=== PATIENT | male | born 1950 | race Caucasian/White ===

== ENCOUNTER 2021-02-20 08:05 | Outpatient (REF) | payer MEDICARE, SELFPAY ==
--- NOTE | ~2021-02-20 | XR_ITS ---
EXAMINATION: XR BILATERAL KNEES CLINICAL INFORMATION: Pain COMPARISON: 12/15/2018 and priors dating back to 2013 TECHNIQUE: Standing AP views of both knees, lateral view of each knee and sunrise views of each knee FINDINGS: There is severe bilateral tricompartmental osteoarthrosis with bdvf-vk-yjbb contact within the medial tibiofemoral compartments bilaterally and along the medial aspect of the lateral femoral compartment on the left, associated with bilateral tibioperoneal, and mild genu varus bilaterally. Stable ossification superior and lateral to the left patella, which may represent an old nonunited avulsion fracture or heterotopic ossification, appearance of which is stable for many years. 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 No knee joint effusion. XR/XR knee LT 2V IMPRESSION: * Severe tricompartmental degenerative changes as described with bocj-pj-srax contact within the medial tibiofemoral compartment bilaterally, and medial aspect of the lateral tibiofemoral compartment on the left. * Stable chondroid lesion within the distal metaphysis on the left suspicious for an enchondroma.
--- NOTE | ~2021-02-20 | XR_ITS ---
EXAMINATION: XR BILATERAL KNEES CLINICAL INFORMATION: Pain COMPARISON: 12/15/2018 and priors dating back to 2013 TECHNIQUE: Standing AP views of both knees, lateral view of each knee and sunrise views of each knee FINDINGS: There is severe bilateral tricompartmental osteoarthrosis with muif-bj-lyhu contact within the medial tibiofemoral compartments bilaterally and along the medial aspect of the lateral femoral compartment on the left, associated with bilateral tibioperoneal, and mild genu varus bilaterally. Stable ossification superior and lateral to the left patella, which may represent an old nonunited avulsion fracture or heterotopic ossification, appearance of which is stable for many years. 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 No knee joint effusion. XR/XR knee RT 2V IMPRESSION: * Severe tricompartmental degenerative changes as described with cajz-cz-mixk contact within the medial tibiofemoral compartment bilaterally, and medial aspect of the lateral tibiofemoral compartment on the left. * Stable chondroid lesion within the distal metaphysis on the left suspicious for an enchondroma.
--- NOTE | ~2021-02-20 | XR_ITS ---
EXAMINATION: XR BILATERAL KNEES CLINICAL INFORMATION: Pain COMPARISON: 12/15/2018 and priors dating back to 2013 TECHNIQUE: Standing AP views of both knees, lateral view of each knee and sunrise views of each knee FINDINGS: There is severe bilateral tricompartmental osteoarthrosis with dxyx-vb-aamj contact within the medial tibiofemoral compartments bilaterally and along the medial aspect of the lateral femoral compartment on the left, associated with bilateral tibioperoneal, and mild genu varus bilaterally. Stable ossification superior and lateral to the left patella, which may represent an old nonunited avulsion fracture or heterotopic ossification, appearance of which is stable for many years. 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 No knee joint effusion. XR/XR knee standing BI IMPRESSION: * Severe tricompartmental degenerative changes as described with oayn-ew-jezv contact within the medial tibiofemoral compartment bilaterally, and medial aspect of the lateral tibiofemoral compartment on the left. * Stable chondroid lesion within the distal metaphysis on the left suspicious for an enchondroma.
== END 2021-02-20 08:06 | disposition home or self-care (01) ==
LOC: HO.HOSX 08:05
PROVIDERS: Visit Provider Orthopaedic Surgery
DX: M17.0 Bilateral primary osteoarthritis of knee (principal); E66.01 Morbid (severe) obesity due to excess calories; Z68.43 Body mass index [BMI] 50.0-59.9, adult
CPT/HCPCS: 20610; 73560; 73565; 99212; J1100

== ENCOUNTER 2022-05-07 06:09 | Outpatient (REF) | payer MEDICARE, SELFPAY ==
--- NOTE | ~2022-05-07 | XR_ITS ---
EXAMINATION: XR BILATERAL STANDING AP KNEES XR KNEE, RIGHT XR KNEE, LEFT CLINICAL INFORMATION: Knee pain COMPARISON: Standing AP knees and bilateral knee radiographs 02/20/2021. TECHNIQUE: Each knee is imaged in standing AP, lateral, and axial patella views. There are a total of 6 views, 3 on each side. FINDINGS: Right: There is marked tricompartment osteoarthritis with prominent joint narrowing, mild secondary genu varus, and prominent femoral and tibial plateau osteophytes. There is no visible erosive change. There is lateralization of the patellar again seen. Small to moderate suprapatellar effusion is suspected. There are atherosclerotic calcifications vasculature. Left: Marked tricompartment osteoarthritis with prominent joint narrowing, mild secondary genu varus, and prominent femoral and tibial plateau osteophytes. No visible erosion. There is mild medial subluxation femur on the tibial plateau again seen. Axial view patella again shows lateralization. There is ossification posterior superior to the upper patellar pole again seen possibly related to old injury. Zopef-pe-cmirwznu patellar effusion is expected. Again, there are as a mineralized intramedullary lesion distal femur around 3 x 4 x 5 cm, suspect enchondroma. There are atherosclerotic calcifications vasculature are again seen. XR/XR knee LT 2V IMPRESSION: -Bilateral marked tricompartment osteoarthritis with small to moderate effusions. -Bilateral patella lateralization. 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
--- NOTE | ~2022-05-07 | XR_ITS ---
EXAMINATION: XR BILATERAL STANDING AP KNEES XR KNEE, RIGHT XR KNEE, LEFT CLINICAL INFORMATION: Knee pain COMPARISON: Standing AP knees and bilateral knee radiographs 02/20/2021. TECHNIQUE: Each knee is imaged in standing AP, lateral, and axial patella views. There are a total of 6 views, 3 on each side. FINDINGS: Right: There is marked tricompartment osteoarthritis with prominent joint narrowing, mild secondary genu varus, and prominent femoral and tibial plateau osteophytes. There is no visible erosive change. There is lateralization of the patellar again seen. Small to moderate suprapatellar effusion is suspected. There are atherosclerotic calcifications vasculature. Left: Marked tricompartment osteoarthritis with prominent joint narrowing, mild secondary genu varus, and prominent femoral and tibial plateau osteophytes. No visible erosion. There is mild medial subluxation femur on the tibial plateau again seen. Axial view patella again shows lateralization. There is ossification posterior superior to the upper patellar pole again seen possibly related to old injury. Smxts-qu-zcpjtnms patellar effusion is expected. Again, there are as a mineralized intramedullary lesion distal femur around 3 x 4 x 5 cm, suspect enchondroma. There are atherosclerotic calcifications vasculature are again seen. XR/XR knee standing BI IMPRESSION: -Bilateral marked tricompartment osteoarthritis with small to moderate effusions. -Bilateral patella lateralization. 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
--- NOTE | ~2022-05-07 | XR_ITS ---
EXAMINATION: XR BILATERAL STANDING AP KNEES XR KNEE, RIGHT XR KNEE, LEFT CLINICAL INFORMATION: Knee pain COMPARISON: Standing AP knees and bilateral knee radiographs 02/20/2021. TECHNIQUE: Each knee is imaged in standing AP, lateral, and axial patella views. There are a total of 6 views, 3 on each side. FINDINGS: Right: There is marked tricompartment osteoarthritis with prominent joint narrowing, mild secondary genu varus, and prominent femoral and tibial plateau osteophytes. There is no visible erosive change. There is lateralization of the patellar again seen. Small to moderate suprapatellar effusion is suspected. There are atherosclerotic calcifications vasculature. Left: Marked tricompartment osteoarthritis with prominent joint narrowing, mild secondary genu varus, and prominent femoral and tibial plateau osteophytes. No visible erosion. There is mild medial subluxation femur on the tibial plateau again seen. Axial view patella again shows lateralization. There is ossification posterior superior to the upper patellar pole again seen possibly related to old injury. Csxrh-ey-vutttnxs patellar effusion is expected. Again, there are as a mineralized intramedullary lesion distal femur around 3 x 4 x 5 cm, suspect enchondroma. There are atherosclerotic calcifications vasculature are again seen. XR/XR knee RT 2V IMPRESSION: -Bilateral marked tricompartment osteoarthritis with small to moderate effusions. -Bilateral patella lateralization. 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
== END 2022-05-07 06:10 | disposition home or self-care (01) ==
LOC: HO.HOSX 06:09
PROVIDERS: Visit Provider Physician Assistant
DX: M17.0 Bilateral primary osteoarthritis of knee (principal); E66.01 Morbid (severe) obesity due to excess calories; M25.511 Pain in right shoulder; Z68.43 Body mass index [BMI] 50.0-59.9, adult
CPT/HCPCS: 20610; 73560; 73565; 99212; J1100

== ENCOUNTER 2022-11-20 15:24 | Emergency (ER) | payer MEDICARE, SELFPAY ==
--- NOTE | ~2022-11-20 | US_ITS ---
EXAMINATION: US VENOUS ULTRASOUND WITH DOPPLER LOWER EXTREMITY, BILATERAL CLINICAL INFORMATION: Bilateral lower extremity edema. COMPARISON: None available. TECHNIQUE: Ultrasound of the deep veins is performed from the hip to the calf with compression sonography and color and pulse Doppler assessment. Spectral analysis with color-flow imaging is performed. FINDINGS: Extremely limited examination due to body habitus. RIGHT: There is normal venous compression and respiratory variation and augmented flow. The visualized common femoral vein, superficial femoral vein, profunda femoral vein, popliteal vein shows no evidence of deep venous thrombosis. There is no significant popliteal fossa cyst. The calf veins could not be visualized. LEFT: There is normal venous compression and respiratory variation and augmented flow. The visualized common femoral vein, superficial femoral vein, profunda femoral vein, popliteal vein shows no evidence of deep venous thrombosis. There is no significant popliteal fossa cyst. The calf veins could not be visualized. If the patient's symptoms persist, followup ultrasound in 5 days 7 days might be of value to exclude proximal propagation from a non-visualized calf vein. US/US venous duplex LE BI IMPRESSION: Technically limited study due to body habitus. No DVT demonstrated in the bilateral lower extremities extending from the common femoral vein to the popliteal vein. Bilateral calf veins could not be visualized. If the patient's symptoms persist, followup ultrasound in 5 days 7 days might be of value to exclude proximal propagation from a non-visualized calf vein.
[2022-11-20 15:43] VITALS: BP 141/51; PULSE 61; RESP 18; TEMP 36.9; O2SAT 94; BMI 59.9
--- NOTE | 2022-11-20 15:43 | ED.LOWEXIN ---
HPI - Extremity Injury (Lower) General Chief Complaint: General Medical Stated Complaint: ultrasound of left leg Time Seen by Provider: 11/20/22 20:17 Source: patient, RN notes reviewed and old records reviewed Mode of arrival: ambulatory History of Present Illness HPI Narrative: 72 yo M w/PMHx obesity, renal stones, sent in from urgent care for DVT rule out, patient c/o LLE swelling, erythema, and warmth x couple days. Reports lower extremities are at baseline edema/swelling. Patient reports compliance with his diuretic, take 40 mg of Lasix daily. Denies injury, fever, chills, drainage, SOB, CP. Onset (ago): day(s) Related Data Home Medications Medication Instructions Recorded Confirmed acetaminophen 650 mg 650 mg PO Q8H 02/20/21 tablet,extended release (Tylenol 8 Hour) ascorbic acid (vitamin C) 500 mg mg PO 02/20/21 capsule aspirin 81 mg chewable tablet 81 mg PO DAILY 02/20/21 flecainide 100 mg tablet 100 mg PO Q8H 02/20/21 furosemide 40 mg tablet 40 mg PO DAILY 02/20/21 gabapentin 300 mg capsule 300 mg PO TID 02/20/21 metoprolol succinate 25 mg 12.5 mg PO DAILY 02/20/21 tablet,extended release 24 hr pantoprazole 40 mg granules 40 mg PO DAILY 02/20/21 delayed-release for susp in packet tramadol 50 mg tablet 50 mg PO DAILY 02/20/21 vitamin B complex (B 1 tab PO DAILY 02/20/21 Complex-Vitamin B12 tablet) ferrous fumarate 324 mg (106 mg 324 mg PO DAILY 05/07/22 iron) tablet Previous Rx's Medication Instructions Recorded cephalexin 500 mg capsule 500 mg PO QID 7 days #28 caps 11/20/22 furosemide 20 mg tablet (Lasix) 40 mg PO DAILY 7 days #14 tabs 11/20/22 Allergies Allergy/AdvReac Type Severity Reaction Status Date / Time amoxicillin Allergy Intermediate Diarrhea Verified 05/07/22 09:41 Review of Systems Review of Systems: Constitutional: No Fever, No Chills, No Fatigue, No Malaise ENT/Mouth: No Ear Pain, No sore throat, No Rhinorrhea, No Swallowing Difficulty Eyes: No Eye Pain, No Swelling, No Redness, No Vision Changes Cardiovascular: No Chest Pain, No SOB, No Dyspnea on Exertion, No Orthopnea, +chronic Edema, No Palpitations Respiratory: No Cough, No Sputum, No Dyspnea Gastrointestinal: No Nausea, No Vomiting, No Diarrhea, No Constipation, No Abdominal pain Musculoskeletal: No joint pain, No Myalgias, No Joint Swelling Skin: +Skin Lesions, No rash Neuro: No Weakness, No Numbness, No Headache Yes all other systems are reviewed and are negative Constitutional: Constitutional: Reports as per [facility] Past Medical History Attestation statement: The following information was validated with the patient. Source: old records reviewed Medical History Bilateral anterior knee pain Bovine stomatitis Kidney stones Social History Social History Advance Directives: No Advance Directives Information Provided: No Current occupational status: disabled Current occupation: rt handed Physical Exam Vital Signs: Vital Signs: Last Vital Signs Temp 98.5 F 11/20/22 15:43 Pulse 71 11/20/22 20:07 Resp 18 11/20/22 20:07 BP 171/61 H 11/20/22 20:07 Pulse Ox 95 11/20/22 20:07 O2 Del Method Room Air 11/20/22 20:07 BMI result Body Mass Index 59.9 Const: General: cooperative, healthy appearing and no acute distress Orientation/consciousness: patient oriented x3 Limitations: no limitations HEENT: Head: Yes normal to inspection and Yes atraumatic Ears: hearing grossly normal bilaterally General nose exam: Normal external nose present Face and sinus: Yes normal facial exam Eyes: General: appearance normal, both eyes and all related structures EOM: EOMs intact bilaterally Neck: Neck: Yes normal visual inspection and Yes no meningeal signs Resp: Effort & Inspection: normal respiratory effort and no respiratory distress Auscultation: clear to auscultation bilaterally Cardio: Rate: regular rate Heart sounds: S1 normal heart sound present and S2 normal heart sound present Peripheral pulses: Peripheral pulses 2+ throughout Skin: Rashes: no rashes Neuro: General: patient oriented x3, tone normal and no meningeal signs Gait exam (Neuro): Normal gait present Extrem: Other: 4+ bilateral LE pitting edema. Left lower extremity with noted circumferential erythema and warmth. Distal pulses intact. No crepitus. No drainage/leakage General: Yes edema Course Course Course Narrative: RME: 72 yo M w/PMHx obesity, renal stones, sent in from urgent care c/o LLE swelling, erythema, and warmth x couple days. Admits to taking his diuretic. denies SOB 4+ b/l le pitting edema, LLE with erythema and warmth Labs, Lactic/blood Cx, US ordered Full HPI, ROS and PE to be performed by primary ED provider. -2004--no leukocytosis. H&H stable. BNP 58. US venous duplex LE BI IMPRESSION: ? Technically limited study due to body habitus. ? No DVT demonstrated in the bilateral lower extremities extending from the common femoral vein to the popliteal vein. ? Bilateral calf veins could not be visualized. If the patient's symptoms persist, followup ultrasound in 5 days 7 days might be of value to exclude proximal propagation from a non-visualized calf vein. > Results discussed with patient including worrisome signs and symptoms and strict return precautions, and when to return to the emergency department. They verbalized understanding and feel safe for discharge at this time. Medical Decision Making Medical Decision Making [facility] Narrative: 72 yo M w/PMHx obesity, renal stones, sent in from urgent care for DVT rule out, patient c/o LLE swelling, erythema, and warmth x couple days. On exam vital signs stable, NAD, nontoxic appearing, physical exam as noted above with bilateral LE pitting edema (chronic per patient) and LLE erythema and warmth. Concern for cellulitis vs DVT. Lower suspicion for CHF w/o SOB/CP. Low concern for necrotizing fasciitis Low suspicion for severe sepsis Plan: Labs, lactic/blood cultures, venous duplex ultrasound Please refer to course for remaining clinical decision making, interpretation of labs/imaging results, and discussions with consultants and/or family members. Differential Diagnosis Differential Diagnoses: The differential diagnosis associated with the presentation includes As above Admission/Observation Consideration of admission/observation: Escalation of care including admission/observation considered Lab Data [facility] Lab Attestation statement: I reviewed the patient's lab results. 11/20/22 16:59 11/20/22 16:59 Labs: Lab Results 11/20/22 11/20/22 11/20/22 Range/Units 16:59 16:59 16:59 WBC 8.0 (4.8-10.8) X10*3/uL RBC 3.83 L (4.60-5.80) X10*6/uL Hgb 12.2 L (14.0-18.0) g/dl Hct 38.0 L (42.0-52.0) % MCV 99.2 H (80.0-98.0) fL MCH 31.9 (27.0-33.0) pg MCHC 32.1 (31.0-36.0) g/dl RDW 12.7 (11.0-16.0) % Plt Count 182 (160-400) X10*3/uL MPV 10.1 (9.4-12.4) fL Immature Gran % (Auto) 0.6 H (0.0-0.4) % Neut % (Auto) 78.5 H (45-73) % Lymph % (Auto) 12.0 L (20-40) % Arthur % (Auto) 8.1 (2-11) % Eos % (Auto) 0.4 (0-4) % Baso % (Auto) 0.4 (0-2) % Lymph # (Auto) 1.0 L (1.2-4.9) X10*3/uL Arthur # (Auto) 0.7 (0.1-1.2) X10*3/uL Eos # (Auto) 0.0 (0.0-0.4) X10*3/uL Baso # (Auto) 0.0 (0.0-0.2) X10*3/uL Abs Immat Gran (auto) 0.05 H (0.00-0.03) X10*3/uL Absolute Neuts (auto) 6.3 (2.0-8.3) x10*3/uL Absolute Nucleated RBC 0.000 (0.0-0.012) X10*3/uL Nucleated RBC % (auto) 0.0 (0.0-0.2) /100WBC PT 11.8 (10.0-13.1) SEC INR 1.0 (0.9-1.1) Sodium 144 (135-145) mmol/L Potassium 4.2 (3.3-5.1) mmol/L Chloride 103 (96-108) mmol/L Carbon Dioxide 31 H (22-29) mmol/L Anion Gap 14 (12-20) BUN 20 H (9-16) mg/dL Creatinine 0.90 (0.5-1.4) mg/dL Estim Creat Clear Calc 119.8 Estimated GFR > 60 Random Glucose 103 (60-115) mg/dL Lactic Acid (0.5-2.0) mmol/L Calcium 9.2 (8.4-10.2) mg/dL Total Bilirubin 0.8 (0.0-1.0) mg/dL Direct Bilirubin 0.2 (0.0-0.5) mg/dL AST 17 (5-37) U/L ALT 11 (0-40) U/L Alkaline Phosphatase 45 (39-117) U/L B-Natriuretic Peptide (<100) pg/mL Total Protein 6.4 L (6.5-8.0) g/dL Albumin 3.7 (3.5-5.0) g/dL 11/20/22 11/20/22 Range/Units 16:59 16:59 WBC (4.8-10.8) X10*3/uL RBC (4.60-5.80) X10*6/uL Hgb (14.0-18.0) g/dl Hct (42.0-52.0) % MCV (80.0-98.0) fL MCH (27.0-33.0) pg MCHC (31.0-36.0) g/dl RDW (11.0-16.0) % Plt Count (160-400) X10*3/uL MPV (9.4-12.4) fL Immature Gran % (Auto) (0.0-0.4) % Neut % (Auto) (45-73) % Lymph % (Auto) (20-40) % Arthur % (Auto) (2-11) % Eos % (Auto) (0-4) % Baso % (Auto) (0-2) % Lymph # (Auto) (1.2-4.9) X10*3/uL Arthur # (Auto) (0.1-1.2) X10*3/uL Eos # (Auto) (0.0-0.4) X10*3/uL Baso # (Auto) (0.0-0.2) X10*3/uL Abs Immat Gran (auto) (0.00-0.03) X10*3/uL Absolute Neuts (auto) (2.0-8.3) x10*3/uL Absolute Nucleated RBC (0.0-0.012) X10*3/uL Nucleated RBC % (auto) (0.0-0.2) /100WBC PT (10.0-13.1) SEC INR (0.9-1.1) Sodium (135-145) mmol/L Potassium (3.3-5.1) mmol/L Chloride (96-108) mmol/L Carbon Dioxide (22-29) mmol/L Anion Gap (12-20) BUN (9-16) mg/dL Creatinine (0.5-1.4) mg/dL Estim Creat Clear Calc Estimated GFR Random Glucose (60-115) mg/dL Lactic Acid 1.9 (0.5-2.0) mmol/L Calcium (8.4-10.2) mg/dL Total Bilirubin (0.0-1.0) mg/dL Direct Bilirubin (0.0-0.5) mg/dL AST (5-37) U/L ALT (0-40) U/L Alkaline Phosphatase (39-117) U/L B-Natriuretic Peptide 58 (<100) pg/mL Total Protein (6.5-8.0) g/dL Albumin (3.5-5.0) g/dL Radiology Impression Discussion of test interpretation with radiology: I have reviewed the radiologist's reading. External Record Review External record reviewed: Inpatient record, Office record, Outpatient record, Prior outpatient labs, Prior outpatient radiology, Primary care record and Outside ED record Tests considered The following testing was considered but not selected: As above Discharge Plan Discharge Clinical Impression: Cellulitis Patient Disposition: Home, Self-Care Instructions: Cellulitis (DC) Additional Instructions: You have cellulitis of your leg. Your ultrasound does not show blood clot, however if you have continued symptoms we recommend repeat ultrasound in 5-7 days PLEASE DOUBLE YOUR LASIX FOR THE NEXT 5-7 DAYS. TAKE 1ST DOSE IN THE MORNING WITH MORNING MEDS, TAKE ADDITIONAL DOSE AT 15:00 If redness is spreading, you have fever, leakage or drainage from legs, shortness of breath return to the ED Call your doctor for close follow-up and repeat labs next week Prescriptions: New cephalexin 500 mg capsule 500 mg PO QID 7 Days Qty: 28 0RF furosemide [Lasix] 20 mg tablet 40 mg PO DAILY 7 Days Qty: 14 0RF No Action pantoprazole [address] for susp in packet 40 mg PO DAILY furosemide 40 mg tablet 40 mg PO DAILY flecainide 100 mg tablet 100 mg PO Q8H gabapentin 300 mg capsule 300 mg PO TID tramadol 50 mg tablet 50 mg PO DAILY metoprolol succinate 25 mg tablet extended release 24 hr 12.5 mg PO DAILY acetaminophen [Tylenol 8 Hour] 650 mg tablet extended release 650 mg PO Q8H ascorbic acid (vitamin C) 500 mg capsule PO vitamin B complex [B Complex-Vitamin B12] Tablet 1 tab PO DAILY aspirin 81 mg tablet,chewable 81 mg PO DAILY ferrous fumarate 324 mg (106 mg iron) tablet 324 mg PO DAILY Referrals: Destiny Ortega [employer] MANAGER [Primary Care Provider] - 5 days Interventions: ED Discharge Assessment Last Done: 11/20/22 20:20 Discharge Date/Time: 11/20/22 20:21
[2022-11-20 17:09] LABS: MANUAL DIFF FLAG NO
[2022-11-20 17:19] LABS: Prothrombin Time 11.8 SEC (10.0-13.1)
[2022-11-20 17:25] LABS: Lactic Acid 1.9 mmol/L (0.5-2.0)
[2022-11-20 17:30] LABS: Alanine Aminotransferase 11 U/L (0-40); Albumin Level 3.7 g/dL (3.5-5.0); Alkaline Phosphatase 45 U/L (39-117); Anion Gap 14 (12-20); Aspartate Amino Transferase 17 U/L (5-37); Bilirubin Direct 0.2 mg/dL (0.0-0.5); Bilirubin Total 0.8 mg/dL (0.0-1.0); Blood Urea Nitrogen 20 mg/dL (9-16); Calcium 9.2 mg/dL (8.4-10.2); Carbon Dioxide 31 mmol/L (22-29); Chloride 103 mmol/L (96-108); Creatinine Clr Calc Pharmacy 119.8; Estimated Glomerular Filt Rate > 60; Glucose Random 103 mg/dL (60-115); Potassium 4.2 mmol/L (3.3-5.1); Sodium 144 mmol/L (135-145); Total Protein 6.4 g/dL (6.5-8.0)
[2022-11-20 17:32] LABS: Basophils Percent Auto 0.4 % (0-2); Eosinophils Percent Auto 0.4 % (0-4); Hemoglobin 12.2 g/dl (14.0-18.0); Imm Gran Abs Auto 0.05 X10*3/uL (0.00-0.03); Imm Gran Pct Auto 0.6 % (0.0-0.4); Mean Corpuscular HGB Conc 32.1 g/dl (31.0-36.0); Mean Corpuscular Hemoglobin 31.9 pg (27.0-33.0); Mean Corpuscular Volume 99.2 fL (80.0-98.0); Mean Platelet Volume 10.1 fL (9.4-12.4); Monocytes Absolute Auto 0.7 X10*3/uL (0.1-1.2); Monocytes Percent Auto 8.1 % (2-11); Neutrophils Absolute Auto 6.3 x10*3/uL (2.0-8.3); Neutrophils Percent Auto 78.5 % (45-73); Platelet Count 182 X10*3/uL (160-400); Red Blood Count 3.83 X10*6/uL (4.60-5.80); Red Cell Distribution Width 12.7 % (11.0-16.0)
[2022-11-20 17:35] LABS: B Type Natriuretic Peptide 58 pg/mL (<100)
[2022-11-20 20:07] VITALS: BP 171/61; PULSE 71; RESP 18; O2SAT 95
== END 2022-11-20 20:21 | disposition home or self-care (01) ==
PROVIDERS: Physician Assistant; Emergency Provider Internal Medicine; PCP Nurse Practitioner Family
DX: L03.116 Cellulitis of left lower limb (principal); M79.89 Other specified soft tissue disorders
CPT/HCPCS: 36415; 80048; 80076; 83605; 83880; 85025; 85610; 87040; 93970; 99284

== ENCOUNTER 2023-02-15 09:42 | Outpatient (REF) | payer MEDICARE, SELFPAY ==
--- NOTE | ~2023-02-15 | XR_ITS ---
EXAMINATION: XR KNEE, STANDING AP, BILATERAL XR KNEE, RIGHT XR KNEE, LEFT CLINICAL INFORMATION: Knee pain. COMPARISON: Standing AP knees and bilateral knee radiographs 05/07/2022. TECHNIQUE: AP standing view of bilateral knees as well as AP and sunrise views of bilateral knees. FINDINGS: RIGHT KNEE: The bones are diffusely demineralized. Marked tricompartmental degenerative changes with joint space narrowing, marginal osteophytes and varus angulation. Redemonstration of lateralization of the patella. Moderate joint effusion redemonstrated. Extensive atherosclerotic calcifications. LEFT KNEE: The bones are diffusely demineralized. Marked tricompartmental degenerative changes with joint space narrowing, marginal osteophytes and varus angulation. Redemonstration of lateralization of the patella. Moderate joint effusion redemonstrated. Extensive atherosclerotic calcifications. Redemonstration of ossification posterior superior to the upper patellar pole, possibly representing an old nonunited avulsion fracture or heterotopic ossification. Moderate joint effusion. Redemonstration of a mineralized intramedullary lesion within the distal left femoral metaphysis demonstrating internal matrix possibly representing old bone infarct or cartilaginous lesion. XR/XR knee LT 2V IMPRESSION: Severe bilateral arthritis redemonstrated. Additional imaging with CT scan or MRI should be considered for better visualization as these modalities are much more sensitive for detection of fracture or other underlying pathology.
--- NOTE | ~2023-02-15 | XR_ITS ---
EXAMINATION: XR KNEE, STANDING AP, BILATERAL XR KNEE, RIGHT XR KNEE, LEFT CLINICAL INFORMATION: Knee pain. COMPARISON: Standing AP knees and bilateral knee radiographs 05/07/2022. TECHNIQUE: AP standing view of bilateral knees as well as AP and sunrise views of bilateral knees. FINDINGS: RIGHT KNEE: The bones are diffusely demineralized. Marked tricompartmental degenerative changes with joint space narrowing, marginal osteophytes and varus angulation. Redemonstration of lateralization of the patella. Moderate joint effusion redemonstrated. Extensive atherosclerotic calcifications. LEFT KNEE: The bones are diffusely demineralized. Marked tricompartmental degenerative changes with joint space narrowing, marginal osteophytes and varus angulation. Redemonstration of lateralization of the patella. Moderate joint effusion redemonstrated. Extensive atherosclerotic calcifications. Redemonstration of ossification posterior superior to the upper patellar pole, possibly representing an old nonunited avulsion fracture or heterotopic ossification. Moderate joint effusion. Redemonstration of a mineralized intramedullary lesion within the distal left femoral metaphysis demonstrating internal matrix possibly representing old bone infarct or cartilaginous lesion. XR/XR knee standing BI IMPRESSION: Severe bilateral arthritis redemonstrated. Additional imaging with CT scan or MRI should be considered for better visualization as these modalities are much more sensitive for detection of fracture or other underlying pathology.
--- NOTE | ~2023-02-15 | XR_ITS ---
EXAMINATION: XR KNEE, STANDING AP, BILATERAL XR KNEE, RIGHT XR KNEE, LEFT CLINICAL INFORMATION: Knee pain. COMPARISON: Standing AP knees and bilateral knee radiographs 05/07/2022. TECHNIQUE: AP standing view of bilateral knees as well as AP and sunrise views of bilateral knees. FINDINGS: RIGHT KNEE: The bones are diffusely demineralized. Marked tricompartmental degenerative changes with joint space narrowing, marginal osteophytes and varus angulation. Redemonstration of lateralization of the patella. Moderate joint effusion redemonstrated. Extensive atherosclerotic calcifications. LEFT KNEE: The bones are diffusely demineralized. Marked tricompartmental degenerative changes with joint space narrowing, marginal osteophytes and varus angulation. Redemonstration of lateralization of the patella. Moderate joint effusion redemonstrated. Extensive atherosclerotic calcifications. Redemonstration of ossification posterior superior to the upper patellar pole, possibly representing an old nonunited avulsion fracture or heterotopic ossification. Moderate joint effusion. Redemonstration of a mineralized intramedullary lesion within the distal left femoral metaphysis demonstrating internal matrix possibly representing old bone infarct or cartilaginous lesion. XR/XR knee RT 2V IMPRESSION: Severe bilateral arthritis redemonstrated. Additional imaging with CT scan or MRI should be considered for better visualization as these modalities are much more sensitive for detection of fracture or other underlying pathology.
== END 2023-02-15 09:43 | disposition home or self-care (01) ==
LOC: HO.HOSX 09:42
PROVIDERS: Visit Provider Orthopaedic Surgery
DX: M17.0 Bilateral primary osteoarthritis of knee (principal); M75.51 Bursitis of right shoulder; E66.01 Morbid (severe) obesity due to excess calories; Z68.43 Body mass index [BMI] 50.0-59.9, adult
CPT/HCPCS: 20610; 73560; 73565; 99212; J1100

== ENCOUNTER 2023-02-15 10:41 | Outpatient (AMB) | payer MEDICARE, SELFPAY ==
[2023-02-15 11:05] VITALS: BMI 59.9
--- NOTE | 2023-02-15 11:05 | MHC.OFFVIS ---
Intake Vital Signs 02/15/23 11:05 Height 5 ft 8 in Weight 394 lb BMI 59.9 Intake Visit Reasons: OV-Bilateral Knee Pain Intake Note: Lee is a 72 year old male who presents today for a follow up appointment of his bilateral knee pain. Last Injections done in bilateral knees as well as right shoulder on 05/07/22. Uses crutches for support when ambulating. The injections were mildly helpful for the right knee but were not helfup for the left knee. Allergies amoxicillin Allergy (Intermediate, Verified 05/07/22 09:41) Diarrhea HPI OV-Bilateral Knee Pain HPI Details Lee Herrera is a 72-year-old male who returns with bilateral knee pain. His last cortisone injection in the bilateral knees was on 05/07/2022, he also had right shoulder cortisone injection the same day. He confirms use of crutches when ambulating. He states the left knee injection did not help him, but the right knee injection gave him mild relief. He reports continued pain in the right shoulder and states the shoulder feels like it ?pulls?. He states the injection in the shoulder gave him relief. He denies a medical history of diabetes mellitus. 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 Patient ambulates with a crutches [facility] Medical History Bilateral anterior knee pain Bovine stomatitis Kidney stones Social History Current occupational status: disabled Current occupation: rt handed Review of Systems Const All systems reviewed & are unremarkable except as noted in HPI and below Physical Exam Vital Signs: BMI result Body Mass Index 59.9 Const General: cooperative, healthy appearing and no acute distress Orientation/consciousness: patient oriented x3 Resp Effort & Inspection: normal respiratory effort and able to speak in complete sentences Cardio Rate: regular rate Peripheral pulses: Peripheral pulses 2+ throughout GI Palpation (GI): Soft to palpation Skin General skin exam: no rashes or lesions noted Lesions: no lesions Rashes: no rashes Neuro General: patient oriented x3 Extrem Other: Bilateral knees: 80 degrees arc of motion. Antalgic gait. Right shoulder: Negative empty can. Positive Rojas's. Office Procedures Joint Injection/Drain Joint Injection/Drain Details: Injected 1 mL of Decadron and 3 mL 1% lidocaine and 3 mL of 0.25% Marcaine. Site was prepped using aseptic technique. Patient tolerated the procedure well. Primary Site: right shoulder Approach Used: posterolateral Coding - Large joint Procedure code (CPT) selection complete Results Reviewed Results Reviewed: 02/15/23 11:35 Lidocaine HCl 2 % MPF [Xylocaine 2 % MPF] 5 ml .ROUTE .STK-MED ONE dexAMETHasone sod phosphate [Decadron] 4 mg .ROUTE .STK-MED ONE Assessment & Plan Assessment & Plan (1) Osteoarthritis of knees, bilateral: Code(s): M17.0 - Bilateral primary osteoarthritis of knee Plan: The patient was offered a cortisone injection in the bilateral knees and right shoulder. The patient was explained the risk, benefits, and alternatives to receiving this injection. After receiving consent for the injection, the patient had the procedure done while in office today. The patient tolerated the procedure well with no complications. He will call the office no sooner then 3 months when he feels he is ready for repeat injections. (2) Morbid obesity with BMI of 50.0-59.9, adult: Code(s): E66.01 - Morbid (severe) obesity due to excess calories; Z68.43 - Body mass index [BMI] 50.0-59.9, adult (3) Bursitis of right shoulder: Code(s): M75.51 - Bursitis of right shoulder Plan Scribed for Dr. Rashi Gonzalez by Lora He, director global medical affairs, on 02/05/2023 at 10:50 am, EST. Orders: Orders XR knee LT 2V 02/15/23 M25.569 - Pain in unspecified knee XR knee RT 2V 02/15/23 M25.569 - Pain in unspecified knee XR knee standing BI 02/15/23 M25.569 - Pain in unspecified knee Coding Level of Care Code Est Pt Level 4 (24015) Diagnoses Osteoarthritis of knees, bilateral M17.0 Morbid obesity with BMI of 50.0-59.9, adult E66.01; Z68.43 Bursitis of right shoulder M75.51 CPT Codes Coding - Large joint: - Large joint ([id number])
== END 2023-02-15 12:41 | disposition home or self-care (01) ==
PROVIDERS: PCP Nurse Practitioner Family; Visit Provider Orthopaedic Surgery
DX: M17.0 Bilateral primary osteoarthritis of knee (principal); M75.51 Bursitis of right shoulder; M25.511 Pain in right shoulder
CPT/HCPCS: 20610; 99214

== ENCOUNTER 2023-08-12 10:22 | Outpatient (REF) | payer MEDICARE, SELFPAY ==
[2023-08-12 13:12] LABS: MANUAL DIFF FLAG NO
[2023-08-12 13:33] LABS: Basophils Percent Auto 0.6 % (0-2); Eosinophils Absolute Auto 0.1 X10*3/uL (0.0-0.4); Eosinophils Percent Auto 1.6 % (0-4); Hematocrit 33.7 % (42.0-52.0); Hemoglobin 9.3 g/dl (14.0-18.0); Imm Gran Abs Auto 0.18 X10*3/uL (0.00-0.03); Imm Gran Pct Auto 2.6 % (0.0-0.4); Lymphocytes Absolute Auto 1.4 X10*3/uL (1.2-4.9); Lymphocytes Percent Auto 21.2 % (20-40); Mean Corpuscular HGB Conc 27.6 g/dl (31.0-36.0); Mean Corpuscular Hemoglobin 27.8 pg (27.0-33.0); Mean Corpuscular Volume 100.6 fL (80.0-98.0); Mean Platelet Volume 10.8 fL (9.4-12.4); Monocytes Absolute Auto 0.6 X10*3/uL (0.1-1.2); Monocytes Percent Auto 8.5 % (2-11); NRBC Pct Auto 0.6 /100WBC (0.0-0.2); Neutrophils Absolute Auto 4.5 x10*3/uL (2.0-8.3); Neutrophils Percent Auto 65.5 % (45-73); Platelet Count 204 X10*3/uL (160-400); Red Blood Count 3.35 X10*6/uL (4.60-5.80); White Blood Count 6.8 X10*3/uL (4.8-10.8)
== END 2023-08-12 10:23 | disposition home or self-care (01) ==
LOC: HO.HVNA 10:22
PROVIDERS: PCP Internal Medicine; Visit Provider Nurse Practitioner Family
DX: D64.9 Anemia, unspecified (principal); I48.91 Unspecified atrial fibrillation
CPT/HCPCS: 36415; 85025

== ENCOUNTER 2023-08-19 09:50 | Outpatient (REF) | payer MEDICARE, SELFPAY ==
[2023-08-19 14:01] LABS: Basophils Percent Auto 0.3 % (0-2); Eosinophils Absolute Auto 0.1 X10*3/uL (0.0-0.4); Eosinophils Percent Auto 1.1 % (0-4); Hematocrit 29.1 % (42.0-52.0); Hemoglobin 8.5 g/dl (14.0-18.0); Imm Gran Abs Auto 0.05 X10*3/uL (0.00-0.03); Imm Gran Pct Auto 0.8 % (0.0-0.4); Lymphocytes Absolute Auto 1.1 X10*3/uL (1.2-4.9); MANUAL DIFF FLAG NO; Mean Corpuscular HGB Conc 29.2 g/dl (31.0-36.0); Mean Corpuscular Hemoglobin 29.6 pg (27.0-33.0); Mean Corpuscular Volume 101.4 fL (80.0-98.0); Mean Platelet Volume 10.5 fL (9.4-12.4); Monocytes Absolute Auto 0.5 X10*3/uL (0.1-1.2); Monocytes Percent Auto 7.7 % (2-11); Neutrophils Absolute Auto 4.4 x10*3/uL (2.0-8.3); Neutrophils Percent Auto 72.1 % (45-73); Platelet Count 298 X10*3/uL (160-400); Red Blood Count 2.87 X10*6/uL (4.60-5.80); Red Cell Distribution Width 21.2 % (11.0-16.0); White Blood Count 6.1 X10*3/uL (4.8-10.8)
[2023-08-19 14:47] LABS: Prostate Specific Antigen 3.08 ng/mL (<0.05-4.0)
== END 2023-08-19 09:51 | disposition home or self-care (01) ==
LOC: HO.HVNA 09:50
PROVIDERS: Visit Provider Urology
DX: R97.20 Elevated prostate specific antigen [PSA] (principal); Z12.5 Encounter for screening for malignant neoplasm of prostate
CPT/HCPCS: 36415; 84153; 85025

== ENCOUNTER 2023-08-29 09:40 | Outpatient (REF) | payer MEDICARE, SELFPAY ==
[2023-08-29 13:08] LABS: MANUAL DIFF FLAG NO
[2023-08-29 13:24] LABS: Basophils Percent Auto 0.4 % (0-2); Eosinophils Percent Auto 0.7 % (0-4); Hematocrit 24.4 % (42.0-52.0); Hemoglobin 7.2 g/dl (14.0-18.0); Imm Gran Abs Auto 0.02 X10*3/uL (0.00-0.03); Imm Gran Pct Auto 0.4 % (0.0-0.4); Lymphocytes Absolute Auto 1.1 X10*3/uL (1.2-4.9); Lymphocytes Percent Auto 19.5 % (20-40); Mean Corpuscular HGB Conc 29.5 g/dl (31.0-36.0); Mean Corpuscular Hemoglobin 30.5 pg (27.0-33.0); Mean Corpuscular Volume 103.4 fL (80.0-98.0); Mean Platelet Volume 10.4 fL (9.4-12.4); Monocytes Absolute Auto 0.5 X10*3/uL (0.1-1.2); Monocytes Percent Auto 8.7 % (2-11); Neutrophils Absolute Auto 3.9 x10*3/uL (2.0-8.3); Neutrophils Percent Auto 70.3 % (45-73); Platelet Count 204 X10*3/uL (160-400); Red Blood Count 2.36 X10*6/uL (4.60-5.80); Red Cell Distribution Width 20.1 % (11.0-16.0); White Blood Count 5.5 X10*3/uL (4.8-10.8)
== END 2023-08-29 09:41 | disposition home or self-care (01) ==
LOC: HO.HVNA 09:40
PROVIDERS: PCP Internal Medicine; Visit Provider Nurse Practitioner Adult Health
DX: Z87.19 Personal history of other diseases of the digestive system (principal)
CPT/HCPCS: 36415; 85025

== ENCOUNTER 2024-01-27 09:57 | Outpatient (REF) | payer MEDICARE, SELFPAY ==
--- NOTE | ~2024-01-27 | US_ITS ---
ULTRASOUND SOFT TISSUES RIGHT THIGH CLINICAL: Palpable mass in the upper medial, inner right thigh. COMPARISON: None. TECHNIQUE: Using linear and curved array transducers with grayscale and color modalities ultrasound examination is performed of the area of clinical concern in the inner right thigh. FINDINGS: There is a large subcutaneous structure in the upper inner right thigh, which is large and not measured by the technologist. They show scant vascularity. The mass is isoechoic to adjacent subcutaneous fat. No fluid collection is seen. There is no lymphadenopathy. No foreign body is seen. No hernia defect is noted. US/US extremity nonvascular wilder IMPRESSION: A large soft tissue density collection, isoechoic to adjacent fat, is seen in the upper inner right thigh, corresponding with the palpable finding. The possibility of a lipoma is raised; the exact etiology is indeterminate. If of continued clinical concern, this can be further evaluated with MRI. Electronically signed by: Nicolas Dumont MD 02/24/2024 07:23 PM EDT
== END 2024-01-27 09:58 | disposition home or self-care (01) ==
LOC: HO.HMGCX 09:57
PROVIDERS: PCP Physician Assistant Surgical; Visit Provider Physician Assistant Surgical
DX: R22.41 Localized swelling, mass and lump, right lower limb (principal)
CPT/HCPCS: 76882

== ENCOUNTER 2024-05-21 10:14 | Outpatient (AMB) | payer MEDICARE, SELFPAY ==
--- NOTE | 2024-05-21 10:24 | MHC.OFFWIV ---
Intake Vital Signs 05/21/24 10:26 BMI Reason not done Patient refused/unable BP 124/80 Blood Pressure Location Lt brachial Position Sitting Pulse 54 Pulse Source Pulse Oximeter Pulse Oximetry (%) 93 Oxygen Delivery Method Room Air Intake Visit Reasons: EP fell on tailbone, has pain Intake Note: Patient here because he had a fall about 2 weeks ago and fell on his tailbone. Patient Tobacco Use Status: Former Tobacco user Allergies amoxicillin Allergy (Intermediate, Verified 05/21/24 10:27) Diarrhea Do you need a note to return to daycare/school/sports/work: No HPI EP fell on tailbone, has pain HPI Details This note is constructed using voice recognition software. While every effort has been made to ensure accuracy, corporate pilot errors may have been included. The patient is a 74 year old male who presents to the clinic today with coccyx pain after a fall 2 weeks ago. He reports that he uses a wheelchair typically for mobility, coupled with crutches for getting around when he has to stand. He has a cast on his right hand, and forgot to lock his wheelchair when he went to sit, the chair rolled away, and he landed hard on his buttocks. He reports it took him about 10-15 minutes to get up from the fall, and did not have pain right away. After the next 2 or 3 days he developed pain, in the right side, which traveled over to the left side of the coccyx. The pain has not improved despite use of routine acetaminophen and tramadol for other pains. He denies numbness and tingling in his legs, any worsened ability to be mobile. The pain is worse with going from sitting to standing, and is absent when he is standing or when he is sitting. [facility] Medical History Bilateral anterior knee pain Bovine stomatitis Kidney stones Social History Patient Tobacco Use Status: Former Tobacco user Current occupational status: disabled Current occupation: rt handed Review of Systems Const All systems reviewed & are unremarkable except as noted in HPI and below Physical Exam Vital Signs: Last Vital Signs Pulse 54 05/21/24 10:26 BP 124/80 05/21/24 10:26 Pulse Ox 93 05/21/24 10:26 Oxygen Delivery Method Room Air 05/21/24 10:26 Const General: cooperative, healthy appearing, comfortable and no acute distress Orientation/consciousness: patient oriented x3 Limitations: wheelchair Resp Effort & Inspection: normal respiratory effort and able to speak in complete sentences Back/Spine/Pelvis Other: Left-sided Schmid's tenderness to palpation with palpable knot. Flexion and extension of spine appear normal. Unable to rotate due to mobility restrictions. Leg strength 5/5, equal bilaterally. Distal neurovascular exam intact. Skin General skin exam: no rashes or lesions noted Neuro General: patient oriented x3 Extrem General: Yes normal to inspection Assessment & Plan Assessment & Plan (1) Coccydynia: Code(s): M53.3 - Sacrococcygeal disorders, not elsewhere classified Plan: Given nature of his fall, we elected to obtain x-rays today. Advised rest, ice or heat. Patient is unable to tolerate NSAIDs, prednisone prescription sent for anti-inflammatory effects. Advised follow up as needed with PCP with worsening or failure to resolve. Anticipate contact the patient with x-ray results after radiology interpretation. Plan See above for full details and plan. Orders: Orders XR sacrum coccyx min 2V Today M53.3 - Sacrococcygeal disorders, not elsewhere classified Medications: New prednisone 40 mg (2 x 20 mg) PO DAILY 3 days 6 tabs 0RF Coding Level of Care Code Est Pt Level 3 (92124) Diagnoses Coccydynia M53.3
[2024-05-21 10:26] VITALS: BP 124/80; PULSE 54; O2SAT 93
== END 2024-05-21 11:34 | disposition home or self-care (01) ==
PROVIDERS: PCP Physician Assistant Surgical; Visit Provider Registered Nurse
DX: M53.3 Sacrococcygeal disorders, not elsewhere classified (principal)

== ENCOUNTER 2024-05-21 10:14 | Outpatient (REF) | payer MEDICARE, SELFPAY ==
--- NOTE | ~2024-05-21 | XR_ITS ---
EXAMINATION: XR SACRUM AND COCCYX CLINICAL INFORMATION: M53.3 - Sacrococcygeal disorders, not elsewhere classified COMPARISON: None available. TECHNIQUE: 2 views of the sacrum and 2 views of the coccyx were obtained. FINDINGS: The coccyx is slightly subluxed posteriorly although this may be within the range of normal variation. Correlate for point tenderness. No prior comparison. Otherwise, no acute fracture or malalignment. XR/XR sacrum coccyx min 2V IMPRESSION: Slight posterior subluxation of the coccyx, possibly within the range of normal variation. Correlate for point tenderness. Otherwise, no acute fracture. Electronically signed by: Sumit Vanegas MD 05/21/2024 05:18 PM [facility]
== END 2024-05-21 10:15 | disposition home or self-care (01) ==
LOC: HO.HMGCX 10:14
PROVIDERS: PCP Physician Assistant Surgical; Visit Provider Registered Nurse
DX: M53.3 Sacrococcygeal disorders, not elsewhere classified (principal)
CPT/HCPCS: 72220; 99212

== ENCOUNTER 2024-05-27 08:53 | Outpatient (AMB) | payer MEDICARE, SELFPAY ==
[2024-05-27 08:53] VITALS: BP 150/68; PULSE 64; O2SAT 96
--- NOTE | 2024-05-27 08:53 | MHC.PC.OV ---
Vital Signs 05/27/24 08:53 05/27/24 10:06 BMI Reason not done Patient refused/unable BP 150/68 H 138/62 Blood Pressure Location Lt brachial Lt brachial Position Sitting Sitting Pulse 64 Pulse Source Pulse Oximeter Pulse Oximetry (%) 96 Oxygen Delivery Method Room Air Intake Visit Reasons: establish care Allergies amoxicillin Allergy (Intermediate, Verified 05/27/24 09:14) Diarrhea Medication List - Last Reconciled 05/27/24 by Karrie Mckinney PA-C acetaminophen ER (Tylenol 8 Hour) 650 mg PO Q8H amlodipine 10 mg PO DAILY ascorbic acid (vitamin C) mg PO aspirin 81 mg PO DAILY ferrous fumarate 324 mg PO DAILY flecainide 100 mg PO Q8H furosemide (Lasix) 40 mg (2 x 20 mg) PO DAILY 7 days furosemide 40 mg PO DAILY gabapentin 300 mg PO TID losartan 50 mg PO DAILY metoprolol succinate ER 25 mg PO DAILY pantoprazole 40 mg PO DAILY tramadol 50 mg PO DAILY vitamin B complex (B Complex-Vitamin B12 tablet) 1 tab PO DAILY Tobacco use date assessed: 05/27/24 Fall risk assessment: 1 Fall in past year (urgent care visit [id number] ) Last assessed Fall Risk: 05/27/24 Dental Screening Dental Screen Date: 05/27/24 Did you have a dental visit in the last 12 months?: No Did you have a dental problem in the last 6 months where you did not have access to dental care?: No Was dental information given to patient?: Patient has dentist HPI establish care HPI Details 74-year-old male with past medical history of GERD, hypertension coming to the office for the 1st time. Patient was previously seen by primary care through [facility] in [place]. He follows with several different specialists including [facility] Cardiology, [facility] for hematology and pulmonology, [place] [facility] and [facility]. He has a history of several colonoscopies in the past and was told he does not need any additional colonoscopies. He ambulates with several different assistive devices including a wheelchair, cane, crutches and walker. He does have chronic pain and uses tramadol b.i.d. for this pain and follows with orthopedics for regular knee injections. He did also recently have multiple hand and wrist operations on the right side for several different concerns. He sees a paper folding machine operator in July. He denies any acute concerns today. [facility] Medical History (Updated 05/27/24 @ 10:18 by Karrie Mckinney PA-C) Fractured talus Bilateral anterior knee pain Bovine stomatitis Kidney stones Surgical History (Updated 05/27/24 @ 10:18 by Karrie Mckinney PA-C) S/P foot surgery, right H/O ankle fusion S/P tonsillectomy H/O knee surgery Hx of appendectomy H/O thumb surgery H/O wrist surgery S/P TAVR (transcatheter aortic valve replacement) Family History (Updated 05/27/24 @ 09:21 by Karrie Mckinney PA-C) Father Cancer Social History Patient Tobacco Use Status: Former Tobacco user Tobacco use type: Cigarette service: No Current occupational status: disabled Current occupation: rt handed Cognitive needs: Yes Hearing needs: No Vision needs: No Questionnaire PHQ-9 Over the last 2 weeks, how often have you been bothered by any of the following problems? 1. Little interest or pleasure in doing things: not at all 2. Feeling down, depressed, or hopeless: not at all 3. Trouble falling or staying asleep, or sleeping too much: not at all 4. Feeling tired or having little energy: not at all 5. Poor appetite or overeating: not at all 6. Feeling bad about yourself - or that you are a failure or have let yourself or your family down: not at all 7. Trouble concentrating on things, such as reading the newspaper or watching television: not at all 8. Moving or speaking so slowly that other people could have noticed. Or the opposite - being so fidgety or restless that you have been moving around a lot more than usual: not at all 9. Thoughts that you would be better off or of hurting yourself in some way: not at all Total score: 0 Depression Screening Interpretation: Negative Depression Screening Done: Yes 47271 - PHQ-9 Billing: Yes Source: Developed by Drs. Brian Sutherland, Yazmin Sheehan, Dash Prince and colleagues, with an educational gerald from [employer]. Thrive Questionnaire Date Thrive assessed: 05/27/24 I am a: Patient What is your living situation today?: I have a steady place to live Within the past 12 months, did the food you bought not last and you didn't have the money to get more?: Never true Within the past 12 months, did you worry whether your food would run out before you got money to buy more?: Never true Do you have trouble paying for medicines?: No Do you have trouble getting transportation to medical appointments?: No Do you have trouble paying your heating and electricity bill?: No Do you have trouble taking care of your child, family member or friend?: No Do you have trouble with day-to-day activities such as bathing, preparing meals, shopping, managing finances, etc.?: No Are you currently unemployed and looking for a job?: No Are you interested in more education?: No Please select the resources that you would like help with: None Currently or been in a relationship where the following occur: No concerns reported THRIVE Score: 0 AUDIT C Alcohol Use Questionnaire (AUDIT-C) 1. How often do you have a drink containing alcohol?: Never 3. How often do you have six or more drinks on one occasion?: Never Total Score: 0 LINETTE-7 AMB Questionnaire ILNETTE-7 Date LINETTE - 7 assessed: 05/27/24 Feeling nervous, anxious, or on edge: 0 = Not at all Not being able to stop or control worryin = Not at all Worrying too much about different things: 0 = Not at all Trouble relaxin = Not at all Being so restless that it is hard to sit still: 0 = Not at all Becoming easily annoyed or irritable: 0 = Not at all Feeling afraid as if something awful might happen: 0 = Not at all Total LINETTE-7 score (0-4 normal; 5-9 mild; 10-14 moderate; 15-21 severe): 0 Source: Developed by Drs. Brian Sutherland, Yazmin Sheehan, Dash Prince and colleagues, with an educational gerald from [employer]. LINETTE-7 Assessment Billing LINETTE-7 Assessment Tool: LINETTE-7 Assessment 62995 Review of Systems Const Denies body aches, Denies fatigue, Denies fever(s), Denies frequent falls, Denies headache(s) and Denies weakness Eyes Reports no additional complaints and Denies change in vision ENT Denies dysphagia, Denies dizziness, Denies facial pain, Denies headache(s), Denies nasal congestion and Denies odynophagia Card Denies chest pain, Denies syncope, Denies irregular heart rhythm, Denies leg edema, Denies lightheadedness and Denies dyspnea Resp Denies cough and Denies dyspnea GI Denies constipation, Denies dysphagia, Denies dyspepsia, Denies diarrhea, Denies nausea, Denies odynophagia and Denies vomiting Denies dysuria, Denies urinary frequency, Denies urinary hesitancy and Denies urinary urgency Musc Denies back pain and Denies myalgias Skin/Breast Reports system reviewed and no additional complaints, except as documented Neuro Denies dizziness, Denies syncope, Denies frequent falls, Denies headache(s) and Denies weakness Psych Reports no additional complaints Endo Denies fatigue Physical exam (Primary Care) Vital Signs: Last Vital Signs Pulse 64 05/27/24 08:53 BP 150/68 H 05/27/24 08:53 Pulse Ox 96 05/27/24 08:53 Oxygen Delivery Method Room Air 05/27/24 08:53 Tobacco/Smoking Status: Tobacco use Status Tobacco use date assessed 05/27/24 05/27/24 09:00 Patient Tobacco Use Status Former Tobacco user 05/27/24 09:00 Tobacco use type Cigarette 05/27/24 09:04 PHQ-9: PHQ-9 Score PHQ-9: Total score 0 05/27/24 09:07 Depression Screening Interpretation: Negative Thrive Assessment: Date of Thrive Assessment Date Thrive assessed 05/27/24 05/27/24 09:00 Currently or been in a relationship where the following occur: No concerns reported Const General: cooperative, healthy appearing, comfortable and no acute distress Orientation/consciousness: patient oriented x3 HENMT Head: Yes normocephalic Ears: hearing grossly normal bilaterally General nose exam: Normal external nose present Eyes General: appearance normal, both eyes and all related structures Conjunctivae: conjunctivae normal Neck Neck: Yes full ROM and Yes no lymphadenopathy Resp Effort & Inspection: normal respiratory effort Auscultation: clear to auscultation bilaterally, no crackles, no rales, no rhonchi and no wheezes Cardio Rate: regular rate Rhythm: regular rhythm Skin General skin exam: no rashes or lesions noted Neuro General: patient oriented x3 and Unable to assess gait (With wheelchair) Gait exam (Neuro): Unable to assess gait (With wheelchair) Extrem General: Yes normal to inspection, Yes full ROM and No edema Psych Affect: normal affect Attitude: cooperative Insight: Good insight present (Psych) Judgement: Good judgement present (Psych) Coding Level of Care Code New Pt Level 4 (77509) Diagnoses Peripheral vascular disease I73.9 Anemia D64.9 GERD (gastroesophageal reflux disease) K21.9 Hypertension I10 Obstructive sleep apnea G47.33 Chronic pain G89.29 History of transcatheter aortic valve replacement (TAVR) Z95.2 Prostate cancer C61 Hyperlipidemia E78.5 Depression F32.A Additional Codes LINETTE-7 Assessment Billing - LINETTE-7 Assessment Tool: LINETTE-7 Assessment 68668 ([id number]) PHQ-9 - 73092 - PHQ-9 Billing: Yes ([id number]) Assessment & Plan Assessment & Plan (1) Peripheral vascular disease: Code(s): I73.9 - Peripheral vascular disease, unspecified Category: Medical Plan: Patient has a history of bilateral leg swelling and follows with cardiology for this and is on Lasix for this concern. Advised to elevate the legs, use compression stockings and exercise as tolerated. (2) Anemia: Code(s): D64.9 - Anemia, unspecified Category: Medical Plan: Patient has a history of chronic anemia and follows with [facility] Hematology/Oncology. They have never found a source of this and patient has undergone multiple endoscopy/colonoscopy without the source or cause. He does require occasional transfusions and iron infusions and has not need to 1 in several years. Continue to monitor blood count and continue to follow with Hematology. (3) GERD (gastroesophageal reflux disease): Code(s): K21.9 - Gastro-esophageal reflux disease without esophagitis Category: Medical Plan: Avoid trigger foods such as citrus, tomato products, soda, caffeine, spicy foods and other foods that may be irritating to your stomach. Avoid laying flat 3-4 hours after eating and elevate the head of the bed 30 degrees to prevent acid from moving into the esophagus. Continue on pantoprazole (4) Hypertension: Code(s): I10 - Essential (primary) hypertension Category: Medical Plan: Continue on current blood pressure medication. Avoid salt intake and encourage healthy diet and regular exercise. Patient on multiple different blood pressure medications that are primarily managed by his paper folding machine operator. Blood pressure at home and in the office have been less than 140/90. Continue to follow up with Cardiology. Advised patient to reach out to the office if blood pressures are persistently over 140/90 (5) Obstructive sleep apnea: Code(s): G47.33 - Obstructive sleep apnea (adult) (pediatric) Category: Medical Plan: Uses CPAP faithfully at least 4 hours a night and benefits from this therapy. Patient uses CPAP and follows with [facility] pulmonology for this diagnosis. (6) Chronic pain: Code(s): G89.29 - Other chronic pain Category: Medical Plan: Patient has chronic pain and uses primarily tramadol b.i.d. referral placed to pain management today and discussed with patient that we will not be continuing the tramadol. (7) History of transcatheter aortic valve replacement (TAVR): Code(s): Z95.2 - Presence of prosthetic heart valve Category: Medical Plan: Patient has history of TAVR which he states was due to chronic anemia. He does follow with paper folding machine operator for this is not on anticoagulation. We will request the records from Cardiology (8) Prostate cancer: Code(s): C61 - Malignant neoplasm of prostate Category: Medical Plan: In remission, Follows with Urology on a yearly basis. (9) Hyperlipidemia: Code(s): E78.5 - Hyperlipidemia, unspecified Category: Medical Plan: Avoid foods that are high in cholesterol such as red meat, fried foods, eggs and baked goods. Triglyceride goal of less than 150 and LDL goal of less than 100. Last cholesterol labs were within normal limits at [facility] May 2023. We will order for updated labs. (10) Depression: Code(s): F32.A - Depression, unspecified Category: Medical Plan: Declines counseling at this time and not currently on medical management. Plan This note was constructed using voice recognition software. While every effort has been made to ensure accuracy and powder room attendant, still areas may have been included sometimes these areas may affect the content or meeting of the given symptoms. Total time spent caring for the patient today was 30 minutes. This includes time spent before the visit reviewing the chart, time spent during the visit, and time spent after the visit and documentation. Orders: Orders Lipid Panel Today E78.00 - Pure hypercholesterolemia, unspecified Referrals Pain Management Referral G89.29 - Other chronic pain
[2024-05-27 10:06] VITALS: BP 138/62
== END 2024-05-27 10:03 | disposition home or self-care (01) ==
DX: I73.9 Peripheral vascular disease, unspecified (principal); C61 Malignant neoplasm of prostate; D64.9 Anemia, unspecified; K21.9 Gastro-esophageal reflux disease without esophagitis; I10 Essential (primary) hypertension; G47.33 Obstructive sleep apnea (adult) (pediatric); G89.29 Other chronic pain; Z95.2 Presence of prosthetic heart valve; E78.5 Hyperlipidemia, unspecified; F32.A Depression, unspecified

== ENCOUNTER → 2024-05-27 08:53 | Outpatient (BNVA) | payer MEDICARE, SELFPAY | DX: I73.9 Peripheral vascular disease, unspecified (principal); D64.9 Anemia, unspecified; K21.9 Gastro-esophageal reflux disease without esophagitis; I10 Essential (primary) hypertension; G47.33 Obstructive sleep apnea (adult) (pediatric); G89.29 Other chronic pain; C61 Malignant neoplasm of prostate; E78.5 Hyperlipidemia, unspecified; F32.A Depression, unspecified; Z95.2 Presence of prosthetic heart valve | CPT/HCPCS: 96127; 99202 ==

== ENCOUNTER 2024-06-08 10:24 | Outpatient (AMB) | payer MEDICARE, SELFPAY ==
[2024-06-08 10:31] VITALS: BP 130/60; PULSE 65; RESP 18; O2SAT 90; BMI 57.6
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
--- OUTSIDE RECORDS SUMMARY | 2024-06-10 14:33 | XMS_ITS | Continuity of Care Document ---
Author Organization [facility] Address [address] [place] [address]- Care Team Providers Care Ladies Attendant Name Role Phone Shannon LOVING, Destiny Primary Care Physician [phone] Encounter [facility] Date(s): 08/08/23 - 05/11/24 [facility] [address] [place] [address] Discharge Disposition: A-D/C Home Attending Physician: Devika Calvert MD Admitting Physician: Kiya Maki Referring Physician: Mykel LOVING, Vero Wilkerson Allergies, Adverse Reactions, Alerts Substance Reaction Severity Status amoxicillin Diarrhea Active Medications amLODIPine 10 mg oral tablet 1 tablet = 10 mg, By Mouth, Daily, # 90 tablet, 0 Refills, Maintenance, 08/20/23 17:28:00 EST, Tablet, Partial fill upon patient request if the prescription is for a schedule II opioid drug. Start Date: 08/20/23 Status: Ordered aspirin 81 mg oral delayed release tablet 81 mg, 1, tablet, By Mouth, Daily, Refills 0, Maintenance, 10/10/20 9:39:00 EDT, Partial fill upon patient request if the prescription is for a schedule II opioid drug. Start Date: 10/10/20 Status: Ordered ferrous fumarate 325 mg oral tablet 1 tablet = 325 mg, By Mouth, Every other day, # 30 tablet, 0 Refills, Maintenance, 08/07/23 15:36:00 EST, Tablet, [facility]/pharmacy #[id number], Partial fill upon patient request if the prescription is for a schedule II opioid drug., 175, cm, 08/07/23 8:30:00 ES... Start Date: 08/07/23 Status: Ordered flecainide 50 mg oral tablet 100 mg, 2, tablet, By Mouth, Every 12 hours, Refills 0, Maintenance, 02/23/20 14:38:00 EDT Start Date: 02/23/20 Status: Ordered furosemide 40 mg oral tablet 80 mg, 2, tablet, By Mouth, Daily in AM, Refills 0, Maintenance, 01/28/16 2:42:04 Start Date: 01/28/16 Status: Ordered gabapentin 300 mg oral capsule 900 mg, 3, capsule, By Mouth, 3 times a day, # 270 capsule, Refills 0, Maintenance, 08/20/23 17:28:00 EST, Partial fill upon patient request if the prescription is for a schedule II opioid drug. Start Date: 08/20/23 Status: Ordered losartan 50 mg oral tablet 1 tablet = 50 mg, By Mouth, Daily, # 30 tablet, 0 Refills, Maintenance, 08/20/23 17:30:00 EST, Tablet, Partial fill upon patient request if the prescription is for a schedule II opioid drug. Start Date: 08/20/23 Status: Ordered Metoprolol Succinate ER 25 mg oral tablet, extended release 1 tablet = 25 mg, By Mouth, Daily, # 90 tablet, 0 Refills, Maintenance, 08/20/23 17:29:00 EST, ER Tablet, Partial fill upon patient request if the prescription is for a schedule II opioid drug. Start Date: 08/20/23 Status: Ordered Oxygen 3 L, Daily at bedtime, Per Pt. he uses 3L oxygen only at bedtime., 0 Refills, Maintenance, 08/04/1815:44:10 EST Start Date: 08/04/17 Status: Ordered Protonix 40 mg oral delayed release tablet = 40 mg, By Mouth, Daily, # 30 tablet, 0 Refills, Maintenance, 03/02/20 13:44:00 EDT, EC Tablet, 176, cm, 03/02/20 7:04:00 EDT, Height, 180, kg, 02/23/20 21:27:00 EDT, Dry Weight Start Date: 03/02/20 Status: Ordered traMADol 50 mg oral tablet 1 tablet = 50 mg, By Mouth, Every 12 hours, PRN as needed for pain, 0 Refills, Maintenance, 08/20/23 17:28:00 EST, Tablet, Partial fill upon patient request if the prescription is for a schedule II opioid drug. Start Date: 08/20/23 Status: Ordered Tylenol 8 HR Arthritis Pain 650 mg oral tablet, extended release 2 tablet = 1,300 mg, By Mouth, Every 8 hours, # 50 tablet, 1 Refills, Maintenance, 01/28/16 10:12:35 Start Date: 01/28/16 Status: Ordered Vitamin B12 = 1,000 mcg, By Mouth, Daily, in the evening, 0 Refills, Maintenance, 08/04/17 16:21:50 EST Start Date: 08/04/17 Status: Ordered Vitamin C 500 mg oral tablet = 500 mg, By Mouth, Daily, 0 Refills, Maintenance, 02/02/16 11:11:41, Tablet Start Date: 02/02/16 Status: Ordered Problem List Condition Confirmation Course Effective Dates Status H ealth Status Informant Obesity hypoventilation syndrome Confirmed Active 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 Confirmed Active S/P TAVR (transcatheter aortic valve replacement) Confirmed Active H/O prostate cancer Confirmed Active HLD (hyperlipidemia) Confirmed Active HTN (hypertension) Confirmed Active Complex sleep apnea syndrome Confirmed Active Morbid obesity, actual BMI 55 Confirmed Active Neuropathy Confirmed Active Osteoarthritis Confirmed Active Paroxysmal atrial fibrillation Confirmed Active Bundle branch block, right Confirmed Active Severe obesity Confirmed Active Unsteady gait Confirmed Active Vital Signs Most recent to oldest [Reference Range]: 1 2 3 Height 172 cm (01/07/24 9:56 AM) 175 cm (10/04/23 8:58 AM) 175 cm (09/17/23 9:22 AM) Weight 168.2 kg (01/07/24 9:56 AM) 173.5 kg (10/04/23 8:58 AM) 175.6 kg (09/17/23 9:22 AM) Oxygen Saturation [94-100 %] 96 % (01/07/24 9:56 AM) 93 % *L* (10/04/23 8:58 AM) 94 % (09/03/23 11:17 AM) Pulse Rate [55-90 bpm] 67 bpm (01/07/24 9:56 AM) 68 bpm (10/04/23 8:58 AM) 66 bpm (09/17/23 9:22 AM) Body Mass Index [18.5-24.99 kg/m2] 56.86 kg/m2 *>HHI* (01/07/24 9:56 AM) 56.65 kg/m2 *>HHI* (10/04/23 8:58 AM) 57.34 kg/m2 *>HHI* (09/17/23 9:22 AM) Blood Pressure [90-138/55-84 mm Hg] 112/44mm Hg (01/07/24 9:56 AM) 120/51mm Hg (10/04/23 8:58 AM) 130/63mm Hg (09/17/23 9:22 AM) Temperature [96.8-100.4 DegF] 97.8 DegF (01/07/24 9:56 AM) 98.2 DegF (10/04/23 8:58 AM) 97.8 DegF (09/17/23 9:22 AM) Mode of Delivery (Oxygen) Room air (01/07/24 9:56 AM) Room air (10/04/23 8:58 AM) Room air (09/17/23 9:22 AM) Blood pressure sites Arm, right (01/07/24 9:56 AM) Arm, right (10/04/23 8:58 AM) Arm, right (09/17/23 9:22 AM) Temperature Route Oral (01/07/24 9:56 AM) Oral (10/04/23 8:58 AM) Temporal (09/17/23 9:22 AM) Dry Weight 168.2 kg (01/07/24 9:56 AM) 173.5 kg (10/04/23 8:58 AM) 175.6 kg (09/17/23 9:22 AM) Weight Obtained Via Standing scale (01/07/24 9:56 AM) Standing scale (10/04/23 8:58 AM) Standing scale (09/17/23 9:22 AM) Dry Weight Obtained Via Standing scale (01/07/24 9:56 AM) Standing scale (10/04/23 8:58 AM) Standing scale (09/17/23 9:22 AM) Social History Social History Type Response Smoking Status Former smoker, quit more than 30 days ago entered on: 09/17/23 Sex Laboratory * Event Display: Non BH Lab Results Authored Date: [id number] Note * Gerry Morgan: PERFORM, SIGN, VERIFY Event Display: Patient Education/Instruction Authored Date: [id number] [facility] *Heme/Onc Adult Clinical Summary Name ERNESTO DARBY Age 73 Years 1950 PCP Mykel LOVING, Vero Wilkerson PCP [facility]# [id number] Visit Date 08/08/2023 13:01:00 Additional Instructions: Scheduled Appointments?? Future Appointments ?No Future Appointments Scheduled Follow-Up Instructions ?? With: Address: When: Devika Calvert [address] [place] [address] Hem/[place] [address] Business (1) 01/27/2024 10:00 AM With: Address: When: Devika Calvert [address] [place] [address], [facility] Hem/[place] [address] [employer] (1) In 17 days 10/04/2023 Diagnosis Medications: Please continue your medications until treatment is completed or stopped by your provider. Discuss any questions related to medications with your provider. Medications to Continue Taking That Have Changed These medications were not printed or sent to your pharmacy - Amlodipine (amLODIPine 10 mg oral tablet) 1 tab(s) Oral Daily. Next Dose: - Losartan (losartan 50 mg oral tablet) 1 tab(s) Oral Daily. Next Dose: Medications to Continue with No Changes These medications were not printed or sent to your pharmacy Acetaminophen (Tylenol 8 HR Arthritis Pain 650 mg oral tablet, extended release) 2 tab(s) Oral every 8 hours. Refills: 1. Next Dose: Ascorbic Acid (Vitamin C 500 mg oral tablet) 500 Milligram Oral Daily. Next Dose: Aspirin (aspirin 81 mg oral delayed release tablet) 1 tab(s) Oral Daily. Next Dose: Cyanocobalamin (Vitamin B12) 1,000 Microgram Oral Daily. in the evening. Next Dose: Ferrous Fumarate (ferrous fumarate 325 mg oral tablet) 1 tab(s) Oral every other day. Refills: 0. Next Dose: Flecainide (flecainide 50 mg oral tablet) 2 tab(s) Oral every 12 hours. Next Dose: Furosemide (furosemide 40 mg oral tablet) 2 tab(s) Oral Daily in the morning. Next Dose: Gabapentin (gabapentin 300 mg oral capsule) 3 capsule Oral 3 times a day. Next Dose: Metoprolol (Metoprolol Succinate ER 25 mg oral tablet, extended release) 1 tab(s) Oral Daily. Next Dose: Oxygen 3 Liter Daily at Bedtime. Per Pt. he uses 3L oxygen only at bedtime.. Next Dose: Pantoprazole (Protonix 40 mg oral delayed release tablet) 40 Milligram Oral Daily. Refills: 0. Next Dose: Tramadol (traMADol 50 mg oral tablet) 1 tab(s) Oral every 12 hours as needed as needed for pain. Next Dose: Allergy Info:?? amoxicillin Medications Given This Visit Future Orders ?No future orders Future Orders ?Iron + Iron Binding Capacity? Order Date:10/30/23?- Complete within?7 days ?Ferritin? Order Date:10/30/23?- Complete within?7 days ?CBC w/ Differential? Order Date:10/30/23?- Complete within?7 days Vital Signs Height 175 cm Weight 173.5 kg BMI 56.65 kg/m2 Blood Pressure 120 mm Hg/51 mm Hg Temperature 98.2 DegF Pulse Rate 68 bpm Respiratory Rate 02 Sat Mode of Delivery 93 %/Room air You can now view a summary of your hospital visit from the comfort of your home through a free online portal called [employer]. [employer] is a website that allows you to securely view your medical information including discharge summary, medications and follow-up visits. ??You can alsosend a secure electronic message to your doctor???s office to request appointments, renew medications or just ask a question. You can enroll at [email or web address] or register during your next office visit. Disclaimer:?? The information provided is of a general nature and is intended to be used in conjunction with the recommendations and advice of your health care practitioner. ??Every effort has been made to ensure that the information provided is accurate and complete at the time it is provided to you however, as your needs change, or, as new ??information becomes available, different or additional instructions may be required. If you have questions, please consult with your primary care provider or pharmacist, as appropriate. ??This information is not intended to serve as substitution for assessment and evaluation by a qualified health care provider. If you do not have a primary care provider, you may find a [facility] provider by calling [facility] [facility] at [phone]. [facility], in keeping with [facility] guidance, no longer requires face masks for staff, patientsor visitors in most situations. Similar to time spent indoors at other locations, there is the chance that you were exposed to respiratory viruses during your time with us (such as flu or COVID-19).? If you develop symptoms concerning for a viral respiratory infection, please seek testing (and treatment if indicated) from your medical provider or home test kit. For information about the plan of care including goals and instructions for your diagnosis, please see the patient education orders section of this document. Patient Education Materials?? The content of this educational material or handout may have been modified, supplemented, or adapted from its original content and format to support your individualized medical care. * Aline Berg: PERFORM, SIGN, VERIFY Event Display: Patient Education/Instruction Authored Date: [id number] [facility] *Heme/Onc Adult Clinical Summary Name ERNESTO DARBY Age 73 Years 1950 PCP Shannon LOVING, Destiny PCP Visit Date 08/08/2023 13:01:00 Additional Instructions: Scheduled Appointments?? Future Appointments ?No Future Appointments Scheduled Follow-Up Instructions ?? With: Address: When: Devika [address] Hem/[place] [address] [employer] [facility] In 17 days 10/04/2023 Diagnosis Medications: Please continue your medications until treatment is completed or stopped by your provider. Discuss any questions related to medications with your provider. Medications to Continue Taking That Have Changed These medications were not printed or sent to your pharmacy - Amlodipine (amLODIPine 10 mg oral tablet) 1 tab(s) Oral Daily. Next Dose: - Losartan (losartan 50 mg oral tablet) 1 tab(s) Oral Daily. Next Dose: Medications to Continue with No Changes These medications were not printed or sent to your pharmacy Acetaminophen (Tylenol 8 HR Arthritis Pain 650 mg oral tablet, extended release) 2 tab(s) Oral every 8 hours. Refills: 1. Next Dose: Ascorbic Acid (Vitamin C 500 mg oral tablet) 500 Milligram Oral Daily. Next Dose: Aspirin (aspirin 81 mg oral delayed release tablet) 1 tab(s) Oral Daily. Next Dose: Cyanocobalamin (Vitamin B12) 1,000 Microgram Oral Daily. in the evening. Next Dose: Ferrous Fumarate (ferrous fumarate 325 mg oral tablet) 1 tab(s) Oral every other day. Refills: 0. Next Dose: Flecainide (flecainide 50 mg oral tablet) 2 tab(s) Oral every 12 hours. Next Dose: Furosemide (furosemide 40 mg oral tablet) 2 tab(s) Oral Daily in the morning. Next Dose: Gabapentin (gabapentin 300 mg oral capsule) 3 capsule Oral 3 times a day. Next Dose: Metoprolol (Metoprolol Succinate ER 25 mg oral tablet, extended release) 1 tab(s) Oral Daily. Next Dose: Oxygen 3 Liter Daily at Bedtime. Per Pt. he uses 3L oxygen only at bedtime.. Next Dose: Pantoprazole (Protonix 40 mg oral delayed release tablet) 40 Milligram Oral Daily. Refills: 0. Next Dose: Tramadol (traMADol 50 mg oral tablet) 1 tab(s) Oral every 12 hours as needed as needed for pain. Next Dose: Allergy Info:?? amoxicillin Medications Given This Visit Future Orders ?No future orders Future Orders ?No future orders Vital Signs Height 175 cm Weight 175.6 kg BMI 57.34 kg/m2 Blood Pressure 130 mm Hg/63 mm Hg Temperature 97.8 DegF Pulse Rate 66 bpm Respiratory Rate 02 Sat Mode of Delivery 94 %/Room air You can now view a summary of your hospital visit from the comfort of your home through a free online portal called [employer]. [employer] is a website that allows you to securely view your medical information including discharge summary, medications and follow-up visits. ??You can alsosend a secure electronic message to your doctor???s office to request appointments, renew medications or just ask a question. You can enroll at [email or web address] or register during your next office visit. Disclaimer:?? The information provided is of a general nature and is intended to be used in conjunction with the recommendations and advice of your health care practitioner. ??Every effort has been made to ensure that the information provided is accurate and complete at the time it is provided to you however, as your needs change, or, as new ??information becomes available, different or additional instructions may be required. If you have questions, please consult with your primary care provider or pharmacist, as appropriate. ??This information is not intended to serve as substitution for assessment and evaluation by a qualified health care provider. If you do not have a primary care provider, you may find a [facility] provider by calling [facility] at [phone]. [facility], in keeping with [facility] guidance, no longer requires face masks for staff, patientsor visitors in most situations. Similar to time spent indoors at other locations, there is the chance that you were exposed to respiratory viruses during your time with us (such as flu or COVID-19).? If you develop symptoms concerning for a viral respiratory infection, please seek testing (and treatment if indicated) from your medical provider or home test kit. For information about the plan of care including goals and instructions for your diagnosis, please see the patient education orders section of this document. Patient Education Materials?? The content of this educational material or handout may have been modified, supplemented, or adapted from its original content and format to support your individualized medical care. Patient Care team information Care Team Personnel Name: Shabbir Michel RN Position: [facility] RONDON RN W/OE and Tasks Member Role: Primary Care Nurse Name: Starr Burnette RN Position: [facility] RN Member Role: Primary Care Nurse Name: Ernestina Fletcher RN Position: [facility] SN RN Member Role: Primary Care Nurse Name: Angelica Luna RN Position: [facility] RN Member Role: Primary Care Nurse Name: Jose G Egan RN Position: [facility] RN Member Role: Primary Care Nurse Name: Leona De La Cruz RN Position: [facility] AMB Nurse Member Role: Primary Care Nurse Name: Sommer De La Cruz RN Position: [facility] Onco RN Member Role: Primary Care Nurse Name: Chrissy Larsen RN Position: [facility] RN Member Role: Primary Care Nurse Name: Pb Sifuentes RN Position: [facility] RN Member Role: Primary Care Nurse Name: Emily Gomez RN Position: [facility] AMB Nurse Member Role: Primary Care Nurse Name: Ru Harris RN Position: [facility] RN Member Role: Primary Care Nurse Name: Jazlyn Tolentino RN Position: [facility] RN Member Role: Primary Care Nurse Name: Zhanna Barber CNM Position: [facility] Vending Machine Filler Member Role: Primary Care Nurse Address: Address: [address] [place] [id number]- Name: Destiny Ortega NP Position: [facility] Outreach Member Role: PCP Address: Address: [address] [place] [address] [place] [address]- Name: Bobby Cummins RN Position: [facility] RN Member Role: Primary Care Nurse Name: Lora Ferraro RN Position: [facility] RN Member Role: Primary Care Nurse Name: Brunilda Maldonado RN Position: [facility] RN Member Role: Primary Care Nurse Name: Randy Iverson RN Position: [facility] RN Member Role: Primary Care Nurse Name: Vero Burnett RN Position: [facility] Office Staff Member Role: Primary Care Nurse Name: Nuno Becerra MD Position: [facility] Renal MD Member Role: [employer] Consulting Physician Address: Address: [address] [place], [place] [id number] [facility] [address]- [place] Name: Hira Garber RN Position: [facility] RN Member Role: Primary Care Nurse Name: Erinn Snyder LPN Position: [facility] RN Member Role: Primary Care Nurse Name: Peggy Miranda RN Position: [facility] RN Member Role: Primary Care Nurse Name: Porsche Talley RN Position: [facility] RN Member Role: Primary Care Nurse Name: Dior Avery LPN Position: [facility] RN Member Role: Primary Care Nurse Name: Leslye Sheehan RN Position: [facility] Logistics Director Member Role: Primary Care Nurse Care Team Related Persons Name: ERINN DARBY Address: home [address] [place] [address] Name: SANDY BERG Address: home [address] [place] [address]
== END 2024-06-08 11:07 | disposition home or self-care (01) ==
PROVIDERS: Visit Provider Internal Medicine
DX: M17.0 Bilateral primary osteoarthritis of knee (principal); M25.511 Pain in right shoulder; G89.29 Other chronic pain
CPT/HCPCS: 99204

== ENCOUNTER → 2024-06-08 10:24 | Outpatient (BNVA) | payer MEDICARE, SELFPAY | PROVIDERS: Visit Provider Internal Medicine | DX: M17.0 Bilateral primary osteoarthritis of knee (principal); M25.511 Pain in right shoulder; G89.29 Other chronic pain | CPT/HCPCS: 99202 ==

== ENCOUNTER 2024-07-27 09:51 | Outpatient (AMB) | payer MEDICARE, SELFPAY ==
--- NOTE | 2024-07-27 09:53 | A.OFFPC_ITS ---
Vital Signs 07/27/24 09:55 Height 5 ft 8 in Weight 373 lb 10.936 oz BMI 56.8 BP 130/64 Blood Pressure Location Lt brachial Position Sitting Pulse 95 Pulse Source Pulse Oximeter Temp 96.9 F Temp Source Skin Pulse Oximetry (%) 95 Oxygen Delivery Method Room Air Intake Visit Reasons: f/u HTN Intake Note: Patient is here to follow up on HTN. Executive Office Manager Required: No Out Patient Therapist: Not Required per policy Accompanied by: Self / Same As Patient Allergies amoxicillin Allergy (Intermediate, Verified 07/27/24 09:54) Diarrhea Medication List - Last Reconciled 07/27/24 by Karrie Mckinney PA-C acetaminophen ER (Tylenol 8 Hour) 650 mg PO Q8H amlodipine 10 mg PO DAILY ascorbic acid (vitamin C) mg PO aspirin 81 mg PO DAILY ferrous fumarate 324 mg PO DAILY flecainide 100 mg PO . BID furosemide (Lasix) 40 mg (2 x 20 mg) PO DAILY 7 days gabapentin 900 mg PO TID losartan 50 mg PO DAILY metoprolol succinate ER 25 mg PO DAILY pantoprazole 40 mg PO DAILY tramadol 50 mg PO BID vitamin B complex (B Complex-Vitamin B12 tablet) 1 tab PO DAILY Tobacco use date assessed: 07/27/24 Fall risk assessment: No Falls in past year Last assessed Fall Risk: 07/27/24 Dental Screening Dental Screen Date: 07/27/24 Did you have a dental visit in the last 12 months?: Yes Did you have a dental problem in the last 6 months where you did not have access to dental care?: No Was dental information given to patient?: Patient has dentist HPI f/u HTN HPI Details 74-year-old male with past medical histo ry of morbid obesity, hypertension, GERD, anemia, peripheral vascular disease, obstructive sleep apnea, prostate cancer, hyperlipidemia and depression last seen 05/2020 coming in for follow up. In review of the notes, patient was seen by pain management 05/2024 for chronic pain advised that PCP would continue tramadol b.i.d. and continue to follow with PCP. Patient states he is still currently seeing his PCP in [place] and is w orking on completely transitioning care but in the meantime is still receiving all of his prescriptions from them. He continues to have bilateral knee pain and bilateral hand pain and sees through [facility] for the hand pain and bilateral knee injections which he had in July. He has extensive history of surgery on the right hand and wrist and follows with her for these concerns. He continues to go to physical therapy for right hand pain and elbow pain and has been seeing an improvement. Urology through Urology and has been in remission from prostate cancer for 15 years ago. He tells us he is trying to transition from his other PCP to our office due to transportation issues as he does not drive. He has been monitoring his blood pressures at home and they have been within the normal range. [facility] Medical History (Updated 05/27/24 @ 10:18 by Karrie Mckinney PA-C) Fractured talus Bilateral anterior knee pain Bovine stomatitis Kidney stones Surgical History (Updated 07/27/24 @ 10:03 by PRASANTH Saucedo) History of carpal tunnel surgery S/P foot surgery, right H/O ankle fusion S/P tonsillectomy H/O knee surgery Hx of appendectomy H/O thumb surgery H/O wrist surgery S/P TAVR (transcatheter aortic valve replacement) Family History (Updated 07/27/24 @ 10:04 by PRASANTH Saucedo) Father Cancer Social History (Updated 07/27/24 @ 10:03 by PRASANTH Saucedo) Housing: House Alcohol intake: never Patient Tobacco Use Status: Former Tobacco user Tobacco use type: Cigarette e-Cigarette/Vaping Use: Never Used Second Hand Smoke Exposure: Yes service: No Current occupational status: disabled Current occupation: rt handed Cognitive needs: Yes (Walker, wheelchair, cane, crowches ) Hearing needs: No Vision needs: No Questionnaire PHQ-9 Over the last 2 weeks, how often have you been bothered by any of the following problems? 1. Little interest or pleasure in doing things: not at all 2. Feeling down, depressed, or hopeless: not at all 3. Trouble falling or staying asleep, or sleeping too much: not at all 4. Feeling tired or having little energy: not at all 5. Poor appetite or overeating: not at all 6. Feeling bad about yourself - or that you are a failure or have let yourself or your family down: not at all 7. Trouble concentrating on things, such as reading the newspaper or watching television: not at all 8. Moving or speaking so slowly that other people could have noticed. Or the opposite - being so fidgety or restless that you have been moving around a lot more than usual: not at all 9. Thoughts that you would be better off or of hurting yourself in some way: not at all Total score: 0 Depression Screening Interpretation: Negative Depression Screening Done: Yes Source: Developed by Drs. Brian Sutherland, Yazmin Sheehan, Dash Prince and colleagues, with an educational gerald from [email or web address]. Thrive Questionnaire Date Thrive assessed: 07/27/24 I am a: Patient What is your living situation today?: I have a steady place to live Within the past 12 months, did the food you bought not last and you didn't have the money to get more?: Never true Within the past 12 months, did you worry whether your food would run out before you got money to buy more?: Never true Do you have trouble paying for medicines?: No Do you have trouble getting transportation to medical appointments?: No Do you have trouble paying your heating and electricity bill?: No Do you have trouble taking care of your child, family member or friend?: No Do you have trouble with day-to-day activities such as bathing, preparing meals, shopping, managing finances, etc.?: No Are you currently unemployed and looking for a job?: No Are you interested in more education?: No Please select the resources that you would like help with: None Currently or been in a relationship where the following occur: No concerns reported THRIVE Score: 0 AUDIT C Alcohol Use Questionnaire (AUDIT-C) 1. How often do you have a drink containing alcohol?: Never Total Score: 0 LINETTE-7 AMB Questionnaire LINETTE-7 Date LINETTE - 7 assessed: 07/27/24 Feeling nervous, anxious, or on edge: 0 = Not at all Not being able to stop or control worryin = Not at all Worrying too much about different things: 0 = Not at all Trouble relaxin = Not at all Being so restless that it is hard to sit still: 0 = Not at all Becoming easily annoyed or irritable: 0 = Not at all Feeling afraid as if something awful might happen: 0 = Not at all Total LINETTE-7 score (0-4 normal; 5-9 mild; 10-14 moderate; 15-21 severe): 0 Source: Developed by Drs. Brian Sutherland, Yazmin Sheehan, Dash Prince and colleagues, with an educational gerald from [email or web address]. Review of Systems Const Denies body aches, Denies chills, Denies fever(s), Denies headache(s) and Denies poor appetite Eyes Reports no additional complaints ENT Denies dizziness and Denies headache(s) Card Denies chest pain, Denies syncope, Denies edema, Denies irregular heart rhythm, Denies lightheadedness and Denies dyspnea Resp Denies cough and Denies dyspnea GI Denies abdominal pain, Denies constipation, Denies diarrhea, Denies nausea and Denies vomiting Musc Details: bilateral knee and hand pain Reports no additional complaints and Denies abnormal gait Skin/Breast Reports system reviewed and no additional complaints, except as documented Neuro Denies abnormal gait, Denies dizziness, Denies syncope and Denies headache(s) Psych Reports no additional complaints Physical exam (Primary Care) Vital Signs: Last Vital Signs Temp 96.9 F 07/27/24 09:55 Pulse 95 07/27/24 09:55 BP 130/64 07/27/24 09:55 Pulse Ox 95 07/27/24 09:55 Oxygen Delivery Method Room Air 07/27/24 09:55 BMI result Body Mass Index 56.8 Tobacco/Smoking Status: Tobacco use Status Tobacco use date assessed 07/27/24 07/27/24 09:59 Patient Tobacco Use Status Former Tobacco user 07/27/24 10:03 Tobacco use type Cigarette 07/27/24 10:03 e-Cigarette/Vaping Use Never Used 07/27/24 10:03 PHQ-9: PHQ-9 Score PHQ-9: Total score 0 07/27/24 12:21 Depression Screening Interpretation: Negative Thrive Assessment: Date of Thrive Assessment Date Thrive assessed 07/27/24 07/27/24 10:06 Currently or been in a relationship where the following occur: No concerns reported Const General: cooperative, healthy appearing, comfortable and no acute distress Orientation/consciousness: patient oriented x3 HENMT Head: Yes normocephalic Ears: hearing grossly normal bilaterally General nose exam: Normal external nose present Eyes General: appearance normal, both eyes and all related structures Conjunctivae: conjunctivae normal Neck Neck: Yes full ROM and Yes no lymphadenopathy Resp Effort & Inspection: normal respiratory effort Auscultation: clear to auscultation bilaterally, no crackles, no rales, no rhonchi and no wheezes Cardio Rate: regular rate Rhythm: regular rhythm Skin General skin exam: no rashes or lesions noted Neuro General: patient oriented x3 Gait exam (Neuro): Normal gait present Extrem General: Yes normal to inspection, Yes full ROM and No edema Psych Affect: normal affect Attitude: cooperative Insight: Good insight present (Psych) Judgement: Good judgement present (Psych) Coding Level of Care Code Est Pt Level 4 (11055) Diagnoses Hyperlipidemia E78.5 Anemia D64.9 GERD (gastroesophageal reflux disease) K21.9 Hypertension I10 Morbid obesity with BMI of 50.0-59.9, adult E66.01; Z68.43 Osteoarthritis of knees, bilateral M17.0 Assessment & Plan Assessment & Plan (1) Hyperlipidemia: Code(s): E78.5 - Hyperlipidemia, unspecified Category: Medical Plan: Avoid foods that are high in cholesterol such as red meat, fried foods, eggs and baked goods. Triglyceride goal of less than 150 and LDL goal of less than 100. Reminded patient about blood work (2) Anemia: Code(s): D64.9 - Anemia, unspecified Category: Medical Plan: Patient states he recently had blood work done and his hemoglobin had returned to a normal level. He has been following with Dr. Bass through [facility]. (3) GERD (gastroesophageal reflux disease): Code(s): K21.9 - Gastro-esophageal reflux disease without esophagitis Category: Medical Plan: Avoid trigger foods such as citrus, tomato products, soda, caffeine, spicy foods and other foods that may be irritating to your stomach. Avoid laying flat 3-4 hours after eating and elevate the head of the bed 30 degrees to prevent acid from moving into the esophagus. Continue on pantoprazole 40 (4) Hypertension: Code(s): I10 - Essential (primary) hypertension Category: Medical Plan: Continue on current blood pressure medication. Avoid salt intake and encourage healthy diet and regular exercise. Blood pressures at home have been within the normal range in the log was reviewed today. (5) Morbid obesity with BMI of 50.0-59.9, adult: Code(s): E66.01 - Morbid (severe) obesity due to excess calories; Z68.43 - Body mass index [BMI] 50.0-59.9, adult Category: Medical Plan: Healthy diet and regular exercise is encouraged. (6) Osteoarthritis of knees, bilateral: Code(s): M17.0 - Bilateral primary osteoarthritis of knee Category: Medical Plan: Patient following with Dr. Tapia through [place] and recently had bilateral knee injections July 01. He is on chronic pain medication with tramadol 50 mg b.i.d. which he is currently receiving through his previous PCP. He is 1 final appointment with them in August and then we will be transitioning to our care. I discussed with the patient that I would be taking over this prescription under the recommendation through pain management however he will need to follow up every 30 days and can not receive this prescription from any other provider going forward. I will plan to take over the tramadol once he is fully transitioned from his other primary care practice. Plan This note was constructed using voice recognition software. While every effort has been made to ensure accuracy and naval inspector, still areas may have been included sometimes these areas may affect the content or meeting of the given symptoms. Total time spent caring for the patient today was 20 minutes. This includes time spent before the visit reviewing the chart, time spent during the visit, and time spent after the visit and documentation. Orders: Orders TSH reflex Free T4 Today Z00.00 - Encounter for general adult medical examination without abnormal findings Vitamin D 25-OH Total Today Z00.00 - Encounter for general adult medical examination without abnormal findings Vitamin B12 and Folate Today Z00.00 - Encounter for general adult medical examination without abnormal findings
[2024-07-27 09:55] VITALS: BP 130/64; PULSE 95; TEMP 36.1; O2SAT 95; BMI 56.8
--- OUTSIDE RECORDS SUMMARY | 2024-07-27 14:21 | XMS_ITS | Encounter Summary ---
Author Organization [facility] Address [address] [place] [address] Care Team Providers Care Obstetrics Tech Name Role Phone Bossman Hull Primary Care Provider [phone] Reason for Referral * Consultation (Routine) - Authorized Specialty Diagnoses / Procedures Referred By Ketty montes Referred To Contact Occupational Therapy Diagnoses Surgery follow-up Cubital tunnel syndrome on right Primary osteoarthritis of first carpometacarpal joint of right hand Right carpal tunnel syndrome Isidra Tapia MD [address] [phone] Referral ID Status Reason Start Date Expiration Date Visits Requested Visits Authorized [id number] Authorized Specialty Services Required 06/29/2025 12 12 Reason for Visit * Reason Comments Post-op Surgery follow up fo r CTR Post-op Surgery follow up fo r ulnar nerve decompression Post-op Surgery follow up fo r trapeziectomy w/ interpositonal arthroplasty Encounter Details Date Type Department Care Team (Latest Contact Info) Description 06/29/2024 9:30 AM EST Office Visit Orthopedic Surgery - [place] [address] [phone] Isidra Tapia MD [address] [phone] Surgery follow-up (Primary Dx); Cubital tunnel syndrome on right; Primary osteoarthritis of first carpometacarpal joint of right hand; Right carpal tunnel syndrome Social History Tobacco Use Types Packs/Day Years Used Date Smoking Tobacco: Never Assessed Sex and Gender Information Value Date Recorded Sex Assigned at Not on file Gender Identity Not on file Sexual Orientation Not on file Job Start Date Occupation Industry Not on file Not on file Not on file documented as of this encounter Last Filed Vital Signs Vital Sign Reading Time Taken Comments Blood Pressure - - Pulse - - Temperature - - Respiratory Rate - - Oxygen Saturation - - Inhaled Oxygen Concentration - - Weight 170 kg (375 lb) 06/29/2024 9:53 AM EST Height 170.2 cm (5' 7 ) 06/29/2024 9:53 AM EST Body Mass Index 58.73 06/29/2024 9:53 AM EST documented in this encounter Progress Notes * Isidra Tapia MD - 06/29/2024 9:30 AM EST Post-op Note (within 90 days of surgical procedure) Procedure: Right thumb trapeziectomy interpositional arthroplasty, MP fusion of right thumb, right carpal tunnel release endoscopically, and a right ulnar nerve in situ decompression at the elbow Date of surgery: 04/02/2024 Subjective: Patient does report some aching at the back of the thumb during full extension. In certain positions it is uncomfortable but for the most part it is doing okay. The ring finger feels better and he states it is okay . The small finger has some numbness in it but it is not as intense. Hedoes note occasional triggering of the small finger. Patient does note some aching intermittently about the mid humeral area. Objective: The scars are all soft and well mobilized along the hand and wrist and in the medial side of the elbow. He is able to flex and extend the elbow. Pinch strength on the right is 4 pounds andfor comparison it is 7.5 pounds on the left. He is able to make a fist and open his hand up. He continues to have some intrinsic weakness but can abduct and adduct the fingers. He is nontender to palpation at the MP joint. He can flex the IP joint and he can circumduct the thumb joint at the C[facility] level. At the elbow he is nontender to palpation over the course of the ulnar nerve. Patient is able to abduct his shoulder out to 90 degrees. He has some limited external rotation only to neutral of the right shoulder. He can forward flex to about 80 degrees. He is not tender to palpation about the acromion either anterior or laterally or along the axis of the humerus. He is not tender at the lateral medial epicondyles of the elbow. Assessment: 1. Surgery follow-up 2. Cubital tunnel syndrome on right 3. Primary osteoarthritis of first carpometacarpal joint of right hand 4. Right carpal tunnel syndrome Follow-up: Patient is 3 months out from surgery. I think he has made good progress. I think that the nerve will continue to improve over the next 6 to 9 months and the small finger will be our guide.I think his strength will gradually improve. He would benefit from formal therapy and a prescription was provided. Reassured him that nothing seemed out of the ordinary and he is doing quite well given how much shehad done at 1 sitting and being at the 90-day mykel. I am not sure why he has this intermittent arm pain. It could be some radiating pain if he is getting some cuff tendinopathy. He does have a history of that in the past. We could not elicit any provocative symptoms here today however if it becomesmore consistent we can investigate this further. Patient will return at the end of August or the beginning of August for recheck. Final x-ray of the right thumb at that time to assess the fusion. Isidra Tapia MD documented in this encounter Plan of Treatment Upcoming Encounters Date Type Department Care Team (Latest Contact Info) Description 07/06/2024 Plan of Care Documentation [facility] [address] [phone] 07/28/2024 9:30 AM EST Treatment [facility] [address] [phone] Amelie Perry COTA 08/03/2024 9:30 AM EST Treatment [facility] [address] [phone] Amelie Perry COTA 08/10/2024 9:15 AM EST Treatment [facility] 175 [facility] [address] [place] [phone] Pb Lorenz OT 08/31/2024 9:45 AM EST Office Visit Orthopedic Surgery - [place] 175 [facility] [address] [place] [address] Isidra Tapia MD 175 [facility] [address] [place] [phone] Scheduled Referrals Name Type Priority Associated Diagnoses Orde r Schedule Ambulatory referral to Occupational Therapy Outpatient Referral Routine Surgery follow-up Cubital tunnel syndrome on right Primary osteoarthritis of first carpometacarpal joint of right hand Right carpal tunnel syndrome 1 Occurrences starting 06/29/2024 until 06/29/2025 documented as of this encounter Visit Diagnoses Diagnosis Surgery follow-up- Primary Cubital tunnel syndrome on right Primary osteoarthritis of first carpometacarpal joint of right hand Right carpal tunnel syndrome Carpal tunnel syndrome documented in this encounter Care Teams Obstetrics Tech Relationship Specialty Start Date End Date Bossman Hull PA [facility], [address] [id number] PCP - General Internal Medicine 06/29/24 documented as of this encounter
--- OUTSIDE RECORDS SUMMARY | 2024-07-27 14:21 | XMS_ITS | Encounter Summary ---
Author Organization [facility] Address [address] [place] [address] Care Team Providers Care Global Sales Director Name Role Phone Bossman Hull Primary Care Provider [phone] Encounter Details Date Type Department Care Team ([facility] st Contact Info) Description 07/06/2024 Plan of Care Documentation [facility] Occupational Therapy [address] [place] [phone] Social History Tobacco Use Types Packs/Day Years Used Date Smoking Tobacco: Never Assessed Sex and Gender Information Value Date Recorded Sex Assigned at Not on file Gender Identity Not on file Sexual Orientation Not on file Job Start Date Occupation Industry Not on file Not on file Not on file documented as of this encounter Progress Notes * Pb Lorenz, OT - 07/06/2024 3:41 PM EST Images from the original note were not included. [facility] - Outpatient OCCUPATIONAL THERAPY EVALUATION Date: 07/06/2024 Visit Number: 1 Patient Name: Lee Herrera : 1950 Age: 74 y.o. Gender: male Diagnosis: ICD-10-CM ICD-9-CM 1. History of decompression of ulnar nerve Z98.890 V45.89 Ambulatory referral to Occupational Therapy 2. Surgery follow-up Z09 V67.00 Ambulatory referral to Occupational Therapy 3. Cubital tunnel syndrome on right G56.21 354.2 Ambulatory referral to Occupational Therapy 4. Primary osteoarthritis of first carpometacarpal joint of right hand M18.11 715.14 Ambulatory referral to Occupational Therapy 5. Right carpal tunnel syndrome G56.01 354.0 Ambulatory referral to Occupational Therapy Date of Onset: 06/29/2024 Referring Provider: Isidra Tapia MD Insurance: Payor: MEDICARE / Plan: MEDICARE PART A & B / Product Type: Medicare / Language: Speaks and understands Maltese as preferred language with no occupational therapist per diem required has a past medical history of Essential hypertension, H/O aortic valve replacement (11/06/2023), Irondeficiency anemia secondary to inadequate dietary iron intake, and Mixed hyperlipidemia. has a past surgical history that includes Leg Surgery (Left); Ankle surgery; and Knee surgery (Left). is allergic to amoxicillin. Precautions: May work on strengthening of the hand and arm Concurrent Services: No Concurrent Services History of Present Illness: Pt underwent R UE ulnar nerve decompression, CTR, MP fusion of thumb and LRTI on 04/02/24. Pt had home therapy initially and now presents to OP OT for continued therapy. Ptreports last home OT visit was 07/02/24. SUBJECTIVE Current Functional Limitations: Reported by Patient all housework takes significant increased time especially pulling up the sheets to make the bed Is the patient at Risk for Falls: Yes Family member accompanied pt gym to lobby Pt uses crutches, therapist stood by for chair transfer Pain: Base of R thumb 2/10 achy Can be 9/10 if pt catches thumb on pocket, etc Home Environment: Lives in 1 level home, alone Son and daughter assist with IADLs [id number]-va-[id number] drove pt to appt Prior Level of Function: I ADL, I IADLs but with some difficulty OBJECTIVE General Observations/Comments: Pt performs slow gait with crutches, chair transfer with increased time Cognition: Pt able to follow directions for OT Eval, however could not recall exact date of surgery Tray Checker Right 15 pounds Left 50 pounds OT Shoulder ROM: Right Left AROM SHOULDER AROM PROM Unable to isolate Flexion WNL WNL WNL Extension WNL WNL 110 Scaption WNL WNL 120 Abduction WNL WNL To stomach Internal Rotation WNL WNL 30 External Rotation WNL WNL OT Elbow/forearm ROM Right Left AROM PROM ELBOW/ FOREARM AROM PROM WNL WNL Extension WNL WNL WNL WNL Flexion WNL WNL WNL WNL Pronation WNL WNL 45 55 Supination WNL WNL OT Wrist ROM Right Left AROM PROM WRIST AROM PROM 50 NT Extension 0 0 20 25 Flexion WNL WNL Opposition THUMB OPPOSITION TO EACH DIGIT (cm) INDEX MIDDLE RING SMALL 0 0 0 2 CM Strength RIGHT LEFT COMMENTS SHOULDER Flexion 3-/5: Fair Minus 5/5: Normal Extension 3-/5: Fair Minus 5/5: Normal Abduction 3-/5: Fair Minus 5/5: Normal External Rotation 3-/5: Fair Minus 5/5: Normal Internal Rotation 5/5: Normal 5/5: Normal ELBOW/ FOREARM Extension 5/5: Normal 5/5: Normal Flexion 5/5: Normal 5/5: Normal Pronation 5/5: Normal 5/5: Normal Supination 5/5: Normal Within available AROM 5/5: Normal WRIST Extension 3-/5: Fair Minus 5/5: Normal Flexion 3-/5: Fair Minus Not Tested 5/5: Normal - Full ROM and tolerates maximum resistance 4/5: Good - Full ROM and tolerates moderate resistance 4-/5: Good Minus - Full ROM and tolerates less than moderate resistance Breaks with resistance 3+/5: Fair Plus - Full ROM and tolerates minimal resistance Breaks with resistance 3/5: Fair - Full ROM against gravity and tolerates no resistance 3-/5: Fair Minus - < Full ROM against gravity 2+/5: Poor Plus - <50% ROM against gravity OR full ROM gravity eliminated with minimal resistance 2/5: Poor - Full ROM gravity eliminated and tolerates no resistance 2-/5: Poor Minus - < full ROM gravity eliminated 1/5: Trace 0/5: No muscle activation Other Assessments: QuickDASH - Disability of Arm, Shoulder, or Hand Rate your ability to do the following activities in the past week: Open a tight or new jar: 3 - Moderate difficulty Do heavy loan servicing officer (eg wash burns, wash floors) : 3 - Moderate difficulty Carry a shopping bag or briefcase : 3 - Moderate difficulty Wash your back : 2 - Mild difficulty Use a knife to cut food: 2 - Mild difficulty Recreational activities in which you take some force or impact through your arm, shoulder or hand (eg golf, hammering, tennis, etc) : 3 - Moderate difficulty During the past week, to what extent has your arm, shoulder or hand problem interfered with your normal social activities with family, friends, neighbours or groups? : 2 - Slightly During the past week, were you limited in your work or other regular daily activities as a result of your arm, shoulder or hand problem? : 3 - Moderately limited Rate the severity of the following symptoms in the last week: Arm, shoulder or hand pain : 4 - Severe Tingling (pins and needles) in your arm, shoulder or hand : 4 - Severe During the past week, how much difficulty have you had sleeping because of the pain in your arm, shoulder or hand? : 2 - Mild difficulty QuickDASH Score QuickDASH Score: 45.45 Classification: Moderate Disability 9 Hole PEG Test 9 Hole Peg Test (seconds) Right - 9 Hole Peg Test (seconds): 35.69 seconds Left - 9 Hole Peg Test (seconds): 35.06 seconds Pain Reassessment: unchanged ASSESSMENT Lee Herrera is a 74 y.o. male presenting for outpatient occupational therapy with complaints of soreness and stiffness in R thumb, decreased strength. Significant clinical findings include: decreased AROM, decreased strength, impaired FMC. Skilled Occupational therapy is medically necessary to improve functional use of R UE. Rehabilitation Potential: Rehab Potential: Condition Has Potential to Improve Learning Needs: Were Patient Learning needs assessed Yes Learning Needs: Plan of Care and Rehabilitation Techniques and Procedures Learning Preferences: Explanation Barriers to Learning: No Barriers to Learning Patient Education: [x] Discussed, with patient and/or caregiver, the importance of therapy and appointment compliance in order to achieve goals in a timely manner. Education provided: POC, HEP Total Treatment Time: 60 OT Evaluation Time Entry OT Evaluation (Low) Time Entry: 60 Documentation completed by Pb Lorenz OT Education Provided To: Patient utilizing Explanation mode(s) of education Response to Education: Verbal Understanding GOALS Goals Addressed This Visit's Progress LTG 10 visits (pt-stated) Patient will report no pain in R thumb, Patient will demo R UE AROM WFL for light IADLs, Patient will demo R type soldering machine tender strength >= 25 to be able to open a jar, Patient will demo improved FMC as evidenced by R 9 hole peg test<= 30 to be able to write legibly, Patient will demo improved functional use of R upper extremity as evidenced by Quick Dash score <= 35 to be able to make the bed, and Patient will perform HEP MOD I Pt goal (pt-stated) Be able to use my hand, not drop everything STG 4-6 visits Patient will report <=1/10 pain in R thumb, Patient will demo R sh scaption AROM>= 120 to be able to reach the soap in the shower, Patient will demo R wrist flex AROM>= 25 to be able to dress with increased ease, Patient will demo R type soldering machine tender strength >= 20 to be able to hold a pot for cooking, Patient will demo improved FMC as evidenced by R 9 hole peg test<= 32 to be able to manipulate utensils, Patient will demo improved functional use of R upper extremity as evidenced by Quick Dash score <= 40 to be able to wipe the counters, and Patient will perform initial HEP MOD I PLAN POC Development/Review: Initial Evaluation; Participants: Patient Skilled Therapy Plan Required: YES- Reasons for Rehab and Medical Necessity -- Additional Comments:Decrease difficulty with ADLs, IADLs Planned Therapy Interventions: Therapeutic Activity (04271), Therapeutic Exercise (77130), Ultrasound (68868), and Manual Therapy (35599) Recommended Consults: none Duration 10 visits Recommended 2 X/week however pt only able to attend 1X/week due to unable to drive, relies on family for transportation BILLING (This Date of Service) OT Evaluation Time Entry OT Evaluation (Low) Time Entry: 60 TOTAL TREATMENT TIME: 60 Minutes Evaluation Low Complexity Justification ::: A history with no personal factors and/or co-morbidities that impact the plan of care and An examination of body system(s) using standardized tests and measures addressing 1 - 2 elements from any of the following: body structures and functions, activity limitations, and/or participation restrictions Documentation completed by Pb Lorenz, OT [facility] OCCUPATIONAL THERAPY [address] [place] [phone] Dept: [phone] Dept PATIENT NAME: Lee Herrera : 1950 Certification: This is to certify that the above named patient, who is under my care, requires skilled Therapy services as described in the above treatment plan. I further certify that the services outlined in this plan are skilled and medically necessary. I have reviewed this plan for rehabilitation services, and I recommend that these services continue to meet the above stated goals and plan. SIGNATURE: DATE Isidra Tapia MD Referring provider documented in this encounter Plan of Treatment Upcoming Encounters Date Type Department Care Team (Latest Contact Info) Description 07/06/2024 Plan of Care Documentation [facility] [address] [place] [phone] 07/28/2024 9:30 AM EST Treatment [facility] [address] [place] [phone] Amelie Perry VANN 08/03/2024 9:30 AM EST Treatment [facility] [address] [place] [phone] Amelie Perry VANN 08/10/2024 9:15 AM EST Treatment [facility] [address] [place] [phone] Pb Lorenz, JOSEPH 08/31/2024 9:45 AM EST Office Visit Orthopedic Surgery - [address] [phone] Isidra Tapia MD [address] [phone] documented as of this encounter Goals Goal Patient Goal Type Associated Problems Recent Progress Patient-Stated? Author Pt goal General Yes Pb Lorenz, OT Note: Be able to use my hand, not drop everything STG 4-6 visits General No Pb Lorenz, OT Note: Patient will report <=1/10 pain in R thumb, Patient will demo R sh scaption AROM>= 120 to be able to reach the soap in the shower, Patient will demo R wrist flex AROM>= 25 to be able to dress with increased ease, Patient will demo R type soldering machine tender strength >= 20 to be able to hold a pot for cooking, Patient will demo improved FMC as evidenced by R 9 hole peg test<= 32 to be able to manipulate utensils, Patient will demo improved functional use of R upper extremity as evidenced by Quick Dash score <= 40 to be able to wipe the counters, and Patient will perform initial HEP MOD I LTG 10 visits General Yes Pb Lorenz, OT Note: Patient will report no pain in R thumb, Patient will demo R UE AROM WFL for light IADLs, Patient will demo R type soldering machine tender strength >= 25 to be able to open a jar, Patient will demo improved FMC as evidenced by R 9 hole peg test<= 30 to be able to write legibly, Patient will demo improved functional use of R upper extremity as evidenced by Quick Dash score <= 35 to be able to make the bed, and Patient will perform HEP MOD I documented as of this encounter Visit Diagnoses Not on filedocumented in this encounter Care Teams Global Sales Director Relationship Specialty Start Date End Date Bossman Hull PA INTERNAL MEDICINE, [address] [address] PCP - General Internal Medicine 06/29/24 documented as of this encounter
--- OUTSIDE RECORDS SUMMARY | 2024-07-27 14:21 | XMS_ITS ---
Author Organization [facility] Address Unknown Allergies, Adverse Reactions, Alerts Substance Reaction Status Noted Date Resolved Date Amoxicillin active 04/06/2024 Problems Problem Status Start Date End Date AFTERCARE FOLLOWING JOINT RE PLACEMENT SURGERY (Primary) (Z47.1 - ICD-10-CM) ACTIVE 04/06/2024 OSTEOARTHRITIS OF FIRST CARP OMETACARPAL JOINT, UNSPECIFIED (M18.9 - ICD-10-CM) ACTIVE 04/06/2024 BRADYCARDIA, UNSPECIFIED (R00.1 - ICD-10-CM) ACTIVE 04/06/2024 UNSPECIFIED ATRIAL FIBRILLATION (I48.91 - ICD-10-CM) A CTIVE 04/06/2024 OBSTRUCTIVE SLEEP APNEA (MONISHA LT) (PEDIATRIC) (G47.33 - ICD-10-CM) ACTIVE 04/06/2024 ESSENTIAL (PRIMARY) HYPERTENSION (I10 - ICD-10-CM) ACT NESTOR 04/06/2024 BODY MASS INDEX [BMI] 45.0-4 9.9, ADULT (Z68.42 - ICD-10-CM) ACTIVE 04/06/2024 GASTROINTESTINAL HEMORRHAGE, UNSPECIFIED (K92.2 - ICD-10-CM) ACTIVE 04/06/2024 UNSPECIFIED PROTEIN-CALORIE MALNUTRITION (E46 - ICD-10 -CM) ACTIVE 04/06/2024 ENCOUNTER FOR SURGICAL AFTER CARE FOLLOWING SURGERY ON THE NERVOUS SYSTEM (Z48.811 - ICD-10-CM) ACTIVE 04/06/2024 MORBID (SEVERE) OBESITY DUE TO EXCESS CALORIES (E66.01 - ICD-10-CM) ACTIVE 04/06/2024 Encounters Encounter Performer Performer Role Encounter Diagnoses Location Date Discharge - Discharged / Transferred to home under care of organized home health service organization - [facility], [facility] - Private home/apt. with home health services [facility] 4 04:15 pm EDT - 4 02:00 pm EDT Immunizations Vaccine Date Diphtheria 10/23/2013 12:00 pm EDT (Shingles) Vaccine 08/29/2018 12:00 pm EST (Shingles) Vaccine 04/04/2018 12:00 pm EDT PPSV23 (Previous Pneumococcal Polysaccha ride)Vaccine 04/10/2019 12:00 pm EDT (Respiratory Syncytial Virus) Arexvy Adj uvant Vaccine 05/16/2023 12:00 pm EST (Influenza) AFLURIA - Quadrivalent - Sta [place]ard Dose 04/09/2024 03:45 pm EDT (COVID-19) [id number] Updated Moderna Vac cine 04/22/2024 08:15 pm EDT Social History
--- OUTSIDE RECORDS SUMMARY | 2024-07-27 14:21 | XMS_ITS | Encounter Summary ---
Author Organization [facility] Address [address] [place] [address] Care Team Providers Care Curing Oven Tender Name Role Phone Bossman Hull Primary Care Provider [phone] Reason for Visit * Consultation (Routine) - Authorized Specialty Diagnoses / Procedures Referred By Ketty montes Referred To Contact Occupational Therapy Diagnoses Surgery follow-up Cubital tunnel syndrome on right Primary osteoarthritis of first carpometacarpal joint of right hand Right carpal tunnel syndrome Isidra Tapia MD 175 [facility] [address] [place] [address] Referral ID Status Reason Start Date Expiration Date Visits Requested Visits Authorized [id number] Authorized Specialty Services Required 06/29/2025 12 12 Encounter Details Date Type Department Care Team (Latest Contact Info) Description 07/06/2024 9:45 AM EST Evaluation [facility] 175 [facility] [address] [place] [address] Pb Lorenz OT History of decompression of ulnar nerve; Surgery follow-up; Cubital tunnel syndrome on right; Primary osteoarthritis [...] of this encounter Progress Notes * Pb Lorenz OT - 07/06/2024 9:45 AM EST Images from the original note were not included. [facility] - Outpatient OCCUPATIONAL THERAPY EVALUATION Date: 07/06/2024 [...] Type: Medicare / Language: Speaks and understands Yoruba as preferred language with no interpreter and translator required has a past medical history of [...] alone Son and daughter assist with IADLs Yzeczsy-py-yfk drove pt to appt Prior Level of Function: I ADL, I IADLs but with some difficulty OBJECTIVE General Observations/Comments: Pt performs slow gait with crutches, chair transfer with increased time Cognition: Pt able to follow directions for OT Eval, however could not recall exact date of surgery Film Mounter Right 15 pounds Left 50 pounds OT [...] jar: 3 - Moderate difficulty Do heavy senior sas developer (eg wash burns, wash floors) : 3 [...] Time Entry: 60 Documentation completed by Pb Lorenz, OT Education Provided To: Patient utilizing Explanation mode(s) of education Response to Education: Verbal Understanding GOALS Goals Addressed This Visit's Progress LTG 10 visits (pt-stated) Patient will report no pain in R thumb, Patient will demo R UE AROM WFL for light IADLs, Patient will demo R receiving manager strength >= 25 to be able to [...] with increased ease, Patient will demo R receiving manager strength >= 20 to be able to [...] ADLs, IADLs Planned Therapy Interventions: Therapeutic Activity (61514), Therapeutic Exercise (13173), Ultrasound (45851), and Manual Therapy (72008) Recommended Consults: none Duration 10 visits Recommended [...] and/or participation restrictions Documentation completed by Pb Lorenz OT [facility] [address] [phone] Dept: [phone] Dept PATIENT NAME: Lee Herrera : 1950 [...] of Care Documentation [facility] [address] [phone] 07/28/2024 9:30 AM EST Treatment [facility] [address] [phone] Amelie Perry COTA 08/03/2024 9:30 AM EST Treatment [facility] [address] [phone] Amelie Perry COTA 08/10/2024 9:15 AM EST Treatment [facility] [address] [phone] Pb Lorenz OT 08/31/2024 9:45 AM EST Office Visit Orthopedic Surgery - [place] 175 [facility] [address] [place] [phone] Isidra Tapia MD 175 [facility] [address] [place] [address] documented as of this encounter Goals Goal [...] with increased ease, Patient will demo R receiving manager strength >= 20 to be able to [...] for light IADLs, Patient will demo R receiving manager strength >= 25 to be able to [...] as of this encounter Visit Diagnoses Diagnosis History of decompression of ulnar nerve Other postprocedural status Surgery follow-up Cubital tunnel syndrome on right Primary osteoarthritis of first carpometacarpal joint of right hand Right carpal tunnel syndrome Carpal tunnel syndrome documented in this encounter Orders Outpatient Referral Count Last Ordered Date Fir st Ordered Date AMB REFERRAL TO OCCUPATIONAL THERAPY 2 11/2024 documented in this encounter Care Teams Curing Oven Tender Relationship Specialty Start Date End Date Bossman Hull PA INTERNAL MEDICINE, [address] [address] PCP - General Internal Medicine 06/29/24 documented as of this encounter
--- OUTSIDE RECORDS SUMMARY | 2024-07-27 14:22 | XMS_ITS | Encounter Summary ---
Author Organization [facility] Address [address] [place] [address] Care Team Providers Care Public Address System Operator Name Role Phone Bossman Hull Primary Care Provider [phone] Reason for Visit * Consultation (Routine) - Authorized Specialty Diagnoses / Procedures Referred By Ketty montes Referred To Contact Occupational Therapy Diagnoses Surgery follow-up Cubital tunnel syndrome on right Primary osteoarthritis of first carpometacarpal joint of right hand Right carpal tunnel syndrome Isidra Tapia MD 175 [facility] [address] [place] [address] Referral ID Status Reason Start Date Expiration Date Visits Requested Visits Authorized [id number] Authorized Specialty Services Required 06/29/2025 12 12 Encounter Details Date Type Department Care Team (Late st Contact Info) Description 07/23/2024 10:15 AM EST Treatment [facility] Occupational Therapy 175 [facility] [address] [place] [address] Amelie Perry COTA Cubital tunnel syndrome on right (Primary Dx) Social History Tobacco Use Types Packs/Day Years Used Date Smoking Tobacco: Never Assessed Sex and Gender Information Value Date Recorded Sex Assigned at Not on file Gender Identity Not on file Sexual Orientation Not on file Job Start Date Occupation Industry Not on file Not on file Not on file documented as of this encounter Progress Notes * SOO Oliver - 07/23/2024 10:15 AM EST [facility] - Outpatient OCCUPATIONAL THERAPY DAILY TREATMENT NOTE Date: 07/23/2024 Visit Number: 3 Patient Name: Lee Herrera : 1950 Age: 74 y.o. Gender: male Diagnosis: No diagnosis found. ICD-10-CM ICD-9-CM 1. History of decompression of [...] 06/29/2024 Referring Provider: Isidra Tapia MD Insurance: Language: Speaks and understands Czech as preferred language with no payable processor required Allergies: is allergic to amoxicillin. Precautions: May work on strengthening of the hand and arm SUBJECTIVE Subjective Report: I have been doing them at home. Pain: 6/10 OBJECTIVE Pt ambulated togymwith crutches TREATMENT INTERVENTION Procedures: AROM for shld elevation. Scap retraction 3x10 Sitting UE there ex with 1# dowel for shld flex /ext to tolerate x20. CCW x30. Scaption x20. FMC orange putty for gross automobile inspector x15 FMC with removal of small pegs. Pt using thumb to assist with pegs. AROM for thumb add/add, CCW, 1# for wrist flex/ext Pain Reassessment: slight increase 7/10 Assessment/Response To Treatment: Good Patient Education: Education provided: Yes Education Provided To: Patient utilizing Explanation mode(s) of education Response to Education: Good PLAN POC Development/Review: No Change in the Plan of Care; Participants: Patient Equipment Recommended: none; Equipment Provided: none Total Treatment Time: 45 Documentation completed by SOO Oliver documented in this encounter Plan of Treatment Upcoming Encounters Date Type Department Care Team (Latest Contact Info) Description 07/06/2024 Plan of Care Documentation [facility] Occupational Therapy [address] [place] [phone] 07/28/2024 9:30 AM EST Treatment [facility] [address] [phone] Amelie Perry, VANN 08/03/2024 9:30 AM EST Treatment [facility] [address] [phone] Amelie Perry VANN 08/10/2024 9:15 AM EST Treatment [facility] Therapy [address] [phone] Pb Lorenz, OT 08/31/2024 9:45 AM EST Office Visit Orthopedic Surgery - [place] 175 [facility] [address] [place] [address] Isidra Tapia MD 175 [facility] [address] [place] [address] documented as of this encounter [...] with increased ease, Patient will demo R automobile inspector strength >= 20 to be able to [...] for light IADLs, Patient will demo R automobile inspector strength >= 25 to be able to [...] as of this encounter Visit Diagnoses Diagnosis Cubital tunnel syndrome on right- Primary documented in this encounter Care Teams Public Address System Operator Relationship Specialty Start Date End Date Bossman Hull PA INTERNAL MEDICINE, [address] [address] PCP - General Internal Medicine 06/29/24 documented as of this encounter
--- OUTSIDE RECORDS SUMMARY | 2024-07-27 14:22 | XMS_ITS | Continuity of Care Document ---
Author Organization [facility] ter Address [address] [place] [address]- Care Team Providers Care Ent Nurse Name Role Phone Destiny Ortega NP Primary Care Physician Encounter [facility] [id number] Date(s): 03/04/24 - 06/28/[address] [address]- Attending Physician: Bossman Hull PA-C Admitting Physician: Bossman Hull PA-C Referring Physician: Bossman Hull PA-C Encounter Type: Pre-Outpt Allergies, Adverse Reactions, Alerts Substance Criticality Severity Reaction Reaction Severity Status amoxicillin Diarrhea Active Medications amLODIPine 10 mg oral tablet 1 tablet = 10 mg, By Mouth, Daily, # 90 tablet, 0 Refills, Maintenance, 08/20/23 5:28:00 PM EST, Tablet, Partial fill upon patient request if the prescription is for a schedule II opioid drug. Start Date: 08/20/23 Status: Ordered Quantity: 90.0 Unit: tablet Repeat number: 1 aspirin 81 mg oral delayed release tablet 81 mg, 1, tablet, By Mouth, Daily, Refills 0, Maintenance, 10/10/20 9:39:00 AM EDT, Partial fill upon patient request if the prescription is for a schedule II opioid drug. Start Date: 10/10/20 Status: Ordered Repeat number: 1 ferrous fumarate 325 mg oral tablet 1 tablet = 325 mg, By Mouth, Every other day, # 30 tablet, 0 Refills, Maintenance, 08/07/23 3:36:00 PM EST, Tablet, [id number], Partial fill upon patient request if the prescription is for a schedule II opioid drug., 175, cm, 08/07/23 8:30:00 EST, Height, 176, kg, 08/01/23 12:39:00 EST, Dry Weight Start Date: 08/07/23 Status: Ordered Quantity: 30.0 Unit: tablet Repeat number: 1 flecainide 50 mg oral tablet 100 mg, 2, tablet, By Mouth, Every 12 hours, Refills 0, Maintenance, 02/23/20 2:38:00 PM EDT Start Date: 02/23/20 Status: Ordered Repeat number: 1 furosemide 40 mg oral tablet 80 mg, 2, tablet, By Mouth, Daily in AM, Refills 0, Maintenance, 01/28/16 2:42:04 AM EDT Start Date: 01/28/16 Status: Ordered Repeat number: 1 gabapentin 300 mg oral capsule 900 mg, 3, capsule, By Mouth, 3 times a day, # 270 capsule, Refills 0, Maintenance, 08/20/23 5:28:00PM EST, Partial fill upon patient request if the prescription is for a schedule II opioid drug. Start Date: 08/20/23 Status: Ordered Quantity: 270.0 Unit: capsule Repeat number: 1 losartan 50 mg oral tablet 1 tablet = 50 mg, By Mouth, Daily, # 30 tablet, 0 Refills, Maintenance, 08/20/23 5:30:00 PM EST, Tablet, Partial fill upon patient request if the prescription is for a schedule II opioid drug. Start Date: 08/20/23 Status: Ordered Quantity: 30.0 Unit: tablet Repeat number: 1 Metoprolol Succinate ER 25 mg oral tablet, extended release 1 tablet = 25 mg, By Mouth, Daily, # 90 tablet, 0 Refills, Maintenance, 08/20/23 5:29:00 PM EST, ER Tablet, Partial fill upon patient request if the prescription is for a schedule II opioid drug. Start Date: 08/20/23 Status: Ordered Quantity: 90.0 Unit: tablet Repeat number: 1 Oxygen 3 L, Daily at bedtime, Per Pt. he uses 3L oxygen only at bedtime., 0 Refills, Maintenance, 08/04/17 4:44:10 PM EST Start Date: 08/04/17 Status: Ordered Repeat number: 1 Protonix 40 mg oral delayed release tablet = 40 mg, By Mouth, Daily, # 30 tablet, 0 Refills, Maintenance, 03/02/20 1:44:00 PM EDT, EC Tablet, 176, cm, 03/02/20 7:04:00 EDT, Height, 180, kg, 02/23/20 21:27:00 EDT, Dry Weight Start Date: 03/02/20 Status: Ordered Quantity: 30.0 Unit: tablet Repeat number: 1 traMADol 50 mg oral tablet 1 tablet = 50 mg, By Mouth, Every 12 hours, PRN as needed for pain, 0 Refills, Maintenance, :28:00 PM EST, Tablet, Partial fill upon patient request if the prescription is for a schedule II opioid drug. Start Date: 08/20/23 Status: Ordered Repeat number: 1 Tylenol 8 HR Arthritis Pain 650 mg oral tablet, extended release 2 tablet = 1,300 mg, By Mouth, Every 8 hours, # 50 tablet, 1 Refills, Maintenance, 01/28/16 10:12:35AM EDT, [id number] Start Date: 01/28/16 Status: Ordered Quantity: 50.0 Unit: tablet Repeat number: 2 Vitamin B12 = 1,000 mcg, By Mouth, Daily, in the evening, 0 Refills, Maintenance, 08/04/17 4:21:50 PM EST Start Date: 08/04/17 Status: Ordered Repeat number: 1 Vitamin C 500 mg oral tablet = 500 mg, By Mouth, Daily, 0 Refills, Maintenance, 02/02/16 11:11:41 AM EDT, Tablet Start Date: 02/02/16 Status: Ordered Repeat number: 1 Problem List Condition Confirmation Course Effective Dates [...] obesity Confirmed Active Unsteady gait Confirmed Active Social History Social History Type Response Smoking Status Former smoker, quit more than 30 days ago entered on: 09/17/23 Sex Sex Representation Male (finding) Patient Care team information Care Team Personnel Name: Shabbir Michel RN Position: S ED RN W/OE and Tasks Member Role: Primary Care Nurse Name: Starr Burnette RN Position: [facility] RN Member Role: Primary Care Nurse Name: Ernestina Fletcher RN Position: [facility] SN RN Member Role: Primary Care Nurse Name: Angelica Luna RN Position: [facility] RN Member Role: Primary Care Nurse Name: Jose G Egan RN Position: [facility] RN Member Role: Primary Care Nurse Name: Leona De La Cruz RN Position: [facility] AMB Nurse Member Role: Primary Care Nurse Name: Sommer De La Cruz RN Position: [facility] Onco RN Member Role: Primary Care Nurse Name: Chrissy Larsen RN Position: [facility] RN Member Role: Primary Care Nurse Name: Pb Sifuentes RN Position: [facility] RN Member Role: Primary Care Nurse Name: Emily Gomez RN Position: [facility] AMB Nurse Member Role: Primary Care Nurse Name: Ru Harris RN Position: [facility] RN Member Role: Primary Care Nurse Name: Jazlyn Tolentino RN Position: [facility] RN Member Role: Primary Care Nurse Name: Destiny Ortega NP Position: [facility] Outreach Member Role: PCP Address: [address] [place] [address] [place] [address]- Telecom: Name: Bobby Cummins RN Position: [facility] RN Member Role: Primary Care Nurse Name: Lora Ferraro RN Position: [facility] RN Member Role: Primary Care Nurse Name: Brunilda Maldonado RN Position: [facility] RN Member Role: Primary Care Nurse Name: Randy Iverson RN Position: [facility] RN Member Role: Primary Care Nurse Name: Vero Burnett RN Position: [facility] BELLA Office Staff Member Role: Primary Care Nurse Name: Zhanna Calderón CNM Position: [facility] Observer [employer] Member Role: Primary Care Nurse Address: [address] [place] [address]- [place] Telecom: Name: Nuno Becerra MD Position: [facility] Renal MD Member Role: Lifetime Consulting Physician Address: [address] [facility] [facility] [place] [address]- [place] Telecom: Name: Hira Garber RN Position: [facility] RN Member Role: Primary Care Nurse Name: Peggy Miranda RN Position: [facility] RN Member Role: Primary Care Nurse Name: Porsche Talley RN Position: [facility] RN Member Role: Primary Care Nurse Name: Dior Avery LPN Position: [facility] RN Member Role: Primary Care Nurse Name: Leslye Sheehan RN Position: [facility] Hospital Regional Medical Director Member Role: Primary Care Nurse Care Team Related Persons Name: WILNERADALBERTO Name: SANDY RODRIGUEZ Insurance Providers Guarantor name: ERNESTO DARBY Health Plan Information #: 2 Payer: MEDEX Member Number: [id number] Policy Number: NA Group Number: NA Health Plan Information #: 1 Payer: MEDICARE PART B OUTPT Member Number: [id number] Policy Number: NA Group Number: NA
--- OUTSIDE RECORDS SUMMARY | 2024-07-27 14:22 | XMS_ITS | Encounter Summary ---
Author Organization [facility] Address [address] [place] [address] Care Team Providers Care Tip Scourer Name Role Phone Bossman Hull Primary Care Provider [phone] Reason for Visit * Consultation (Routine) - Authorized Specialty Diagnoses / Procedures Referred By Ketty montes Referred To Contact Occupational Therapy Diagnoses Surgery follow-up Cubital tunnel syndrome on right Primary osteoarthritis of first carpometacarpal joint of right hand Right carpal tunnel syndrome Isidra Tapia MD [address] [facility] [address] [place] [address] Referral ID Status Reason Start Date Expiration Date Visits Requested Visits Authorized [id number] Authorized Specialty Services Required 06/29/2025 12 12 Encounter Details Date Type Department Care Team (Latest Contact Info) Description 07/13/2024 9:30 AM EST Treatment [facility] [address] [facility] [address] [place] [address] Amelie Perry COTA History of decompression of ulnar nerve (Primary Dx); Surgery follow-up; Cubital tunnel syndrome on right; [...] encounter Progress Notes * SOO Oliver - 07/13/2024 9:30 AM EST [facility] - Outpatient OCCUPATIONAL THERAPY DAILY TREATMENT NOTE Date: 07/13/2024 Visit Number: [id number] Patient Name: Lee Herrera : 1950 Age: [...] to Occupational Therapy Date of Onset: 06/29/2024 Date of Onset: 06/29/2024 Referring Provider: Isidra Tapia MD Insurance: Payor: MEDICARE / Plan: MEDICARE PART A & B / Product Type: Medicare / Language: Speaks and understands [place] as preferred language with no music adapter required Allergies: is allergic to amoxicillin. Precautions: May work on strengthening of the hand and arm SUBJECTIVE Subjective Report:: I do some exercises at home. Pain: Base of R thumb 2/10 achy Can be 9/10 if pt catches thumb on pocket, etc TREATMENT INTERVENTION Procedures: UE therex : scap retraction, shld circles. Shld flex/ext with1# to toelrance. 3x10. UE ranger CW/CCW 3x10. AAROM for shld abd.add x10 . Supination /pronation, with 1# wt AROM for wrist flex/ext 3/10 Gross grasp with level 2 digi flex AROM for oppositon , pt unable to reach PF. Issued handout for ex at home. Pain Reassessment: no increase pain Assessment/Response To Treatment: Good Issued handout for HEP Patient Education: Education provided: Yes Education Provided To: Patient utilizing Explanation mode(s) of education Response to Education: Good PLAN POC Development/Review: No Change in the Plan of Care; Participants: Patient Equipment Recommended: none; Equipment Provided: none GOALS Total Treatment Time: 45 Documentation completed by SOO Oliver : documented in this encounter Plan of Treatment Upcoming Encounters Date Type Department Care Team (Latest Contact Info) Description 07/06/2024 Plan of Care Documentation [facility] [address] [phone] 07/28/2024 9:30 AM EST Treatment [facility] [address] [phone] Amelie Perry COTA 08/03/2024 9:30 AM EST Treatment [facility] [address] [phone] Amelie Perry COTA 08/10/2024 9:15 AM EST [facility] [address] [phone] Pb Lorenz, OT 08/31/2024 9:45 AM EST Office Visit [facility] [place] [address] [phone] Isidra Tapia MD [address] [phone] documented as of this encounter Goals [...] with increased ease, 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 to be able to [...] for light IADLs, 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
--- OUTSIDE RECORDS SUMMARY | 2024-07-27 14:22 | XMS_ITS | Clinical Summary ---
Author Organization [facility] Address [address] [place] [address] Care Team Providers Care Resource Development Manager Name Role Phone Destiny Ortega ANALYTICS DIRECTOR Primary Care Provider [phone] Allergies Active Allergy Reactions Criticality Noted Date Comments Amoxicillin Diarrhea 03/08/2020 Medications Medication Sig Dispensed Refills Start Date End Date Status acetaminophen (TYLENOL) 650 MG CR tablet 2 tab(s) prn 0 Active amLODIPine (NORVASC) tablet 5 mg Take 1 tablet (5 mg total) by mouth daily. for 30 days 0 07/20/2022 Active ascorbic acid (VITAMIN C) 500 MG tablet Take 1 tablet (500 mg total) by mouth. 0 Active aspirin 81 MG EC tablet Take 1 tablet (81 mg total) by mouth. 0 Active Cholecalciferol 50 MCG (2000 UT) TABS Take 2,000 Units by mouth. 0 Active clindamycin (CLEOCIN) 300 MG capsule 2 capsules po q hr prior to dental appt 0 02/01/2020 Active clopidogrel (Plavix) 75 MG tablet Take 1 tablet (75 mg total) by mouth. 0 03/02/2020 Active Diclofenac Sodium 1 % GEL 2-4 gm TID PRN right foot 0 04/26/2022 Active Ferrous Fumarate 324 (106 Fe) MG TABS Take 324 mg by mouth. 0 11/18/2021 Active flecainide (TAMBOCOR) 100 MG tablet TAKE 1 TABLET BY MOUTH TWICE A DAY FOR 90 DAYS 0 08/13/2022 Active furosemide (LASIX) 40 MG tablet Take 2 tablets (80 mg total) by mouth daily. 0 08/13/2022 Active gabapentin (NEURONTIN) 300 MG capsule 3 CAPS 3 TIMES A DAY 0 06/23/2022 Active Lidocaine 4 % PTCH Apply topically. 0 04/13/2020 Active losartan (COZAAR) tablet 50 mg Take 1 tablet (50 mg total) by mouth daily. 0 06/27/2022 Active metoprolol succinate (TOPROL-XL) 24 hr tablet 25 mg TAKE 1 TABLET BY MOUTH EVERY DAY FOR 90 DAYS 0 08/13/2022 Active Misc. Devices (Wheelchair) MISC . 0 06/02/2012 Active pantoprazole (PROTONIX) 40 MG tablet Take 1 tablet (40 mg total) by mouth daily. 0 06/02/2022 Active traMADol (ULTRAM) 50 MG tablet TAKE 1 TABLET BY MOUTH 2 TIMES A DAY NEEDED. 0 05/08/2022 Active valsartan (DIOVAN) tablet 40 mg Take 1 tablet (40 mg total) by mouth. 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 Social History Tobacco Use Types Packs/Day Years Used Date Smoking Tobacco: Unknown Tobacco Cessation:Counseling Given: Not Answered Sex and Gender Information Value Date Recorded Sex Assigned at Not on file Gender Identity Not on file Sexual Orientation Not on file Job Start Date Occupation Industry Not on file Not on file Not on file Last Filed Vital Signs Vital Sign Reading Time Taken Comments Blood Pressure - - Pulse - - Temperature - - Respiratory Rate - - Oxygen Saturation - - Inhaled Oxygen Concentration - - Weight 170.1 kg (375 lb) 09/05/2022 11:18 AM EST Height 175.3 cm (5' 9 ) 09/05/2022 11:18 AM EST Body Mass Index 55.38 09/05/2022 11:18 AM EST Plan of Treatment Health Maintenance Due Date Last Done Comments Hepatitis C Screening 1950 COVID-19 Vaccine (#1) 1950 Depression Screening 1963 BMI Counseling 1969 Preventative Health Evaluation 1969 Colon Cancer Screening (Colonoscopy) 02/20/1996 Fall Risk Assessment 02/20/2016 DTap / Tdap / Td (2 - Td or Tdap) 10/24/2023 10/23/2013 Influenza Vaccine (#1) 2024 2, 04/27/2021, 05/02/2019, Additional history exists RSV Adult > 60+ Yrs or (1 - 1-dose 75+ series) 2026 Shingrix-Zoster Vaccine Completed 08/29/2018, 04/04 Pneumococcal Vaccine Completed 04/10/2019, 01/27/2015, 05/08/2013 Hepatitis B Vaccines Aged Out No long er eligible based on patient's age to complete this topic RSV Ped < 20 months Aged Out No longe r eligible based on patient's age to complete this topic Care Teams Resource Development Manager Relationship Specialty Start Date End Date Destiny Ortega NP [address] [facility] [place] [address] PCP - General Family Medicine 08/21/22
--- OUTSIDE RECORDS SUMMARY | 2024-07-27 14:22 | XMS_ITS | Clinical Summary ---
Author Organization 175 [facility] Address [address] [place] [address] Phone Care Team Providers Care Coping Machine Assembler Name Role Phone Bossman Hull Primary Care Provider [phone] Allergies Active Allergy Reactions Criticality Noted Date Comments Amoxicillin Diarrhea Low 03/08/2020 Medications Medication Sig Dispensed Refills Start Date End Date Status amLODIPine (NORVASC) 10 mg tablet Take 1 Tablet by mouth daily. Active ferrous fumarate 324 mg (106 mg iron) tablet Take 325 mg by mouth daily. Active flecainide (TAMBOCOR) 100 mg tablet Take 1 Tablet by mouth 2 times daily. Active furosemide (LASIX) 40 mg tablet Take 2 Tablets by mouth daily. Active gabapentin (NEURONTIN) 300 mg capsule Take 3 Capsules by mouth 3 times daily. Active losartan (COZAAR) 50 mg tablet Take 1 Tablet by mouth daily. Active metoprolol tartrate (LOPRESSOR) 25 mg tablet Take 1 Tablet by mouth daily. Active pantoprazole (PROTONIX) 40 mg EC tablet Take 1 Tablet by mouth daily. Active triamcinolone acetonide (KENALOG-40) 40 mg/mL injection Inject 1 mL into the articular space 2 Times Daily. 12/11/2023 Active ascorbic acid (VITAMIN C) 500 mg tablet Take 1 tablet (500 mg total) by mouth. Active cyanocobalamin (Vitamin B-12) 1,000 mcg tablet Take 1 tablet (1,000 mcg total) by mouth daily. Active ibuprofen (ADVIL,MOTRIN) 600 mg tablet Take 1 tablet (600 mg total) by mouth. 04/03/2024 Active acetaminophen (TYLENOL 8 HOUR) 650 mg 8 hr tablet 2 tab(s) prn 01/28/2016 Active aspirin 81 mg EC tablet Take 1 tablet (81 mg total) by mouth. 10/10/2020 Active bisacodyL (DULCOLAX) 10 mg suppository Insert 1 suppository (10 mg total) into the rectum. Active cholecalciferol (VITAMIN D-3) 50 mcg (2,000 unit) tablet Take 1 tablet (2,000 Units total) by mouth daily. Active clindamycin (CLEOCIN) 300 mg capsule TAKE 2 CAPSULES BY MOUTH 1 HOUR BEFORE APPT Active clopidogreL (PLAVIX) 75 mg tablet Take 1 tablet (75 mg total) by mouth. 03/02/2020 Active diclofenac (VOLTAREN) 1 % topical gel 2-4 gm TID PRN right foot 04/26/2022 Active ferrous sulfate 325 mg (65 mg iron) EC tablet Take 1 tablet (325 mg total) by mouth. Active lidocaine 4 % patch Apply topically. 04/13/2020 Active miscellaneous medical supply [facility] Two custom made compression knee socks, right lower extremity. Wear daily as directed. 02/09/2020 Active metoprolol succinate (TOPROL-XL) 25 mg 24 hr tablet Take 1 tablet (25 mg total) by mouth. 08/13/2022 Active predniSONE (DELTASONE) 10 mg tablet 5 tablets by mouth daily for 2 days then decrease by 1 pill every 2 days until finished 08/21/2022 Active senna-docusate (PERICOLACE) 8.6-50 mg per tablet Take 2 tablets by mouth. 04/03/2024 Active traMADoL (ULTRAM) 50 mg tablet Take 1 tablet (50 mg total) by mouth 2 times daily. Max Daily Amount: 100 mg 08/20/2023 Active valsartan (DIOVAN) 40 mg tablet Take 1 tablet (40 mg total) by mouth. 04/13/2020 Active Active Problems Problem Noted Date Diagnosed Date History of decompression of ulnar nerve 07/13/19 25 Surgery follow-up 06/29/2024 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 05/05/20 24 Severe obesity 05/05/2024 Osteoarthritis 05/05/2024 Bradycardia, unspecified 04/06/2024 Gastrointestinal hemorrhage, unspecified Unspecified protein-calorie malnutrition 10/07/2 024 Morbid (severe) obesity due to excess calories 1 Unspecified atrial fibrillation 04/06/2024 Osteoarthritis of first carpometacarpal joint, u nspecified 04/06/2024 Diverticulosis 03/26/2024 Primary osteoarthritis of fi rst carpometacarpal joint of right hand 12/11/2023 Right carpal tunnel syndrome 12/11/2023 Mass of right lower leg 12/09/2023 Bundle branch block, right 11/06/2023 Complex sleep apnea syndrome 11/06/2023 Cubital tunnel syndrome on right 11/06/2023 HLD (hyperlipidemia) 11/06/2023 HTN (hypertension) 11/06/2023 Morbid obesity 11/06/2023 Neuropathy 11/06/2023 Obesity hypoventilation syndrome 11/06/2023 Osteoarthrosis 11/06/2023 Paroxysmal atrial fibrillation 11/06/2023 Trigger finger, left middle finger 11/06/2023 Unsteady gait when walking 11/06/2023 S/P TAVR (transcatheter aortic valve replacement ) 11/06/2023 Overview (05/05/2024): Need more details but patient said he had valve surgery several years ago. He is not on anticoagulation. 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 09/05/2022 Bilateral foot pain 05/03/2017 Chronic pain of both knees 05/03/2017 Gastroesophageal reflux disease without esophagi tis 05/03/2017 Iron deficiency anemia 05/03/2017 Obstructive sleep apnea syndrome 05/03/2017 Essential hypertension 05/03/2017 Encounters Date Type Department Care Team Description 07/23/2024 10:15 AM EST Treatment [facility] [address] [phone] Amelie Perry COTA Cubital tunnel syndrome on right (Primary Dx) 07/13/2024 9:30 AM EST Treatment [facility] [address] [phone] Amelie Perry COTA History of decompression of ulnar nerve (Primary Dx); Surgery follow-up; Cubital tunnel syndrome on right; Primary osteoarthritis of first carpometacarpal joint of right hand; Right carpal tunnel syndrome 07/06/2024 9:45 AM EST Evaluation [facility] [address] [phone] Pb Lorenz, JOSEPH History of decompression of ulnar nerve; Surgery follow-up; Cubital tunnel syndrome on right; Primary osteoarthritis of first carpometacarpal joint of right hand; Right carpal tunnel syndrome 07/06/2024 Plan of Care Documentation [facility] [address] [phone] 06/29/2024 9:30 AM EST Office Visit Orthopedic Surgery [facility] [address] [phone] Isidra Tapia MD Surgery follow-up (Primary Dx); Cubital tunnel syndrome on right; Primary osteoarthritis of first carpometacarpal joint of right hand; Right carpal tunnel syndrome 05/25/2024 9:30 AM EST Office Visit Orthopedic Surgery [facility] [address] [phone] Disha Henderson PA Post-operative state (Primary Dx) 05/08/2024 Telephone Orthopedic Surgery [facility] [address] [phone] Isidra Tapia MD Request For Order(s) (Order clarification/) 05/05/2024 9:45 AM EST Office Visit Orthopedic Surgery [address] [phone] Disha Henderson PA Surgery follow-up (Primary Dx); Primary osteoarthritis of both knees from Last 3 Months Immunizations Name Administration Dates Next Due Influenza Quadravalent, 0.5m l (Fluad) 65yo and older 04/27/2021 Influenza Quadravalent, 0.5m l (Fluzone High-dose) 65yo and older 05/01/2023,04/16/2022 Influenza Quadrivalent, 0.5m l, preservative free (Fluarix; FluLaval; Fluzone) ages 6mo and older (Afluria) 3yo and older 04/09/2024,04/22/2015 Influenza trivalent, 0.5mL ( Fluzone High-dose) 65yo and older 05/02/2019,04/04/2018,05/03/2017,04/20 Influenza trivalent, with pr eservative (Fluzone; Afluria) 6mo and older 04/09/2014,07/25/2012,03/30/2011 Moderna SARS-CoV-2 COVID-19, mRNA, LNP-S, preservative free 09/25/2020,08/28/2020 Pneumococcal conjugate 13 va lent (Prevnar 13, PCV13) 2mo and older 01/27/2015 Pneumococcal polysaccharide 23 valent (Pneumovax 23) 2yo and older 04/10/2019,05/08/2013 RSV, bivalent, protein subun it RSVpreF, 0.5mL, Preservative Free (Arexvy) 60yo and older 05/16/2023 Tdap Tetanus diptheria acell ular pertussis (Boostrix; Adacel) 7yo and older 10/23/2013 Zoster Live 04/29/2014 Zoster recombinant (Shingrix ) 19yo and older 08/29/2018,04/04/2018 influenza Split Preservative Free ID 05/08/2013 Surgical History Surgery Date Site/Laterality Comments LEG SURGERY Left PROCEDURE: HISTORICAL LEG SURGERY; COMMENT: ORIF of femur in 1999 ANKLE SURGERY PROCEDURE: HISTORICAL ANKLE SURGERY; COMMENT: 9 surgeries to right foot. Ended up with a fused ankle in 2007 KNEE SURGERY Left PROCEDURE: HISTORICAL KNEE SURGERY; COMMENT: Meniscus surgery Medical History Medical History Date Comments Iron deficiency anemia secon ever to inadequate dietary iron intake DX:Iron deficiency anem ia secondary to inadequate dietary iron intake Essential hypertension DX:Essent ial hypertension Mixed hyperlipidemia DX:Mixed hy perlipidemia H/O aortic valve replacement 11/06/2023 DX: H/O aortic valve replacement; COMMENT: Need more details but patient said he had valve surgery several years ago. He is not on anticoagulation. Social History Tobacco Use Types Packs/Day Years Used Date Smoking Tobacco: Never Assessed Sex and Gender Information Value Date Recorded Sex Assigned at Not on file Gender Identity Not on file Sexual Orientation Not on file Job Start Date Occupation Industry Not on file Not on file Not on file Obstetrics History Last Filed Vital Signs Vital Sign Reading Time Taken Comments Blood Pressure 167/77 03/24/2024 11:04 AM EDT Pulse 61 03/24/2024 11:04 AM EDT Temperature - - Respiratory Rate - - Oxygen Saturation - - Inhaled Oxygen Concentration - - Weight 170 kg (375 lb) 06/29/2024 9:53 AM EST Height 170.2 cm (5' 7 ) 06/29/2024 9:53 AM EST Body Mass Index 58.73 06/29/2024 9:53 AM EST Plan of Treatment Upcoming Encounters Date Type Department Care Team (Latest Contact Info) Description 07/06/2024 Plan of Care Documentation [facility] [address] [phone] 07/28/2024 9:30 AM EST Treatment [facility] [address] [phone] Amelie Perry, VANN 08/03/2024 9:30 AM EST Treatment [facility] [address] [place] [phone] Amelie Perry VANN 08/10/2024 9:15 AM EST Treatment [facility] [address] [place] [phone] Pb Lorenz, OT 08/31/2024 9:45 AM EST Office Visit [facility] [place] [address] [phone] Isidra Tapia MD [address] [phone] Health Maintenance Due Date Last Done Comments Abdominal Aortic Aneurysm (AAA) Screen 08/04/2023 Colorectal Cancer Screening: Colonoscopy 08/04/2023 Depression Screening 08/04/2023 04/26/2022 Falls Risk Assessment 08/04/2023 Medicare Annual Wellness Visit 08/04/2023 Social Influencers of Health Screening 08/04/2023 DTaP,Tdap,and Td Vaccines (2 - Td or Tdap) 10/24/2023 10/23/2013 Hypertension/CHF/CAD Annual BMP Blood Test 05/05/2025 05/05/2024, 03/24/2024, 03/24/2024, Additional history exists Cholesterol Screening (Lipid Panel) 05/05/2029 05/05/2024, 05/01/2023, 05/01/2023 Zoster Vaccines Completed 08/29/2018, 10/2017, 04/29/2014 Hepatitis C Screening Completed 04/10/2019 Pneumococcal Vaccine: 65+ Years Completed 04/10/2019, 01/27/2015, 05/08/2013 RSV Immunization Patients 60+ Years Old Completed 05/16/2023 Influenza Vaccine Completed 04/09/2024, , 05/01/2023, Additional history exists COVID-19 Vaccine Completed 04/22/2024, , 04/16/2022, Additional history exists HIB Vaccines Aged Out No longer eligi ble based on patient's age to complete this topic HPV Vaccines Aged Out No longer eligi ble based on patient's age to complete this topic Hepatitis A Vaccines Aged Out No long er eligible based on patient's age to complete this topic Hepatitis B Vaccines Aged Out No long er eligible based on patient's age to complete this topic IPV Vaccines Aged Out No longer eligi ble based on patient's age to complete this topic MMR Vaccines Aged Out No longer eligi ble based on patient's age to complete this topic Meningococcal ACWY Vaccine Aged Out N o longer eligible based on patient's age to complete this topic RSV Immunization Patients Under 20 months Aged Out No longer eligible based on patient's age to complete this topic Varicella Vaccines Aged Out No longer eligible based on patient's age to complete this topic Goals Goal Patient Goal Type Associated Problems [...] with increased ease, Patient will demo R pharmacy technician program director strength >= 20 to be able to [...] for light IADLs, Patient will demo R pharmacy technician program director strength >= 25 to be able to open a jar, Patient will demo improved FMC as evidenced by R 9 hole peg test<= 30 to be able to write legibly, Patient will demo improved functional use of R upper extremity as evidenced by Quick Dash score <= 35 to be able to make the bed, and Patient will perform HEP MOD I Procedures Procedure Name Priority Date/Time Associated Diagnosis Comments CAST APPLICATION Routine 05/05/2024 12:1 5 PM EST Surgery follow-up Primary osteoarthritis of both knees XR FINGERS 2+ VIEWS RIGHT Routine 05/05/2024 9:51 AM EST Post-operative state FL ARTHROCENTESIS/ASPI RATION/INJECTION MAJOR JOINT/BURSA W/O U/S GUIDANCE Routine 05/05/2024 9:45 AM EST Surgery follow-up Primary osteoarthritis of both knees HM ANNUAL BMP BLOOD TEST Routine 03/24/2024 LIPID PANEL Routine 05/01/2023 from Last 3 Months or Most Recently Relevant to Health Maintenance Results * Casting (05/05/2024 12:15 PM EST) Narrative Disha Henderson PA - 05/05/2024 12:15 PM EST MINDY Ramirez ? 05/05/2024 12:29 PM Casting Date/Time: 05/05/2024 12:15 PM Performed by: MINDY Ramirez Authorized by: MINDY Ramirez Consent given by: patient Injury Location details: right hand Pre-procedure assessment Distal perfusion: normal ?? Distal sensation: normal ?? Procedure Manipulation performed? no manipulation performed Immobilization: cast Cast type: thumb spica Supplies used: cotton padding and Ortho-Glass Post-procedure assessment Distal perfusion: normal Distal sensation: normal Range of motion: unchanged Disha GUILLEN IN CLINIC/BEDSIDE OR DERABLES * XR Fingers 2+ Views Right (05/05/2024 9:51 AM EST) Anatomical Region Laterality Modality Upper Extremities, Fingers Right Compu jacob Radiography Narrative 05/05/2024 11:55 AM EST Date of Visit: 05/05/2024 Reason for visit: Right thumb MP joint fusion Views: AP, lateral oblique right thumb Comparison: April 14 Findings: Patient has undergone a trapeziectomy. ??There is a metallic anchor in the base of the index finger. ??Although not a dedicated wrist x-ray of the carpal alignment appears maintained. ??There is a K wire and [id number] construct for an MP fusion. ??Overall alignment appears acceptable. ??No evidence of any hardware backing out or loosening. Impression:Trapeziectomy coupled with MP joint fusion of the right thumb. Disha GUILLEN IMG XR PROCEDURES * FL ARTHROCENTESIS/ASPIRATION/INJECTION MAJOR JOINT/BURSA W/O U/S GUIDANCE (05/05/2024 9:45 AM EST) Narrative Disha Henderson PA - 05/05/2024 9:45 AM EST MINDY Ramirez ? 05/05/2024 12:29 PM L Inj/Asp: bilateral knee Details: 25 G needle, anteromedial approach Medications (Right): 3 mL lidocaine 1 %; 40 mg triamcinolone acetonide 40 mg/mL Medications (Left): 3 mL lidocaine 1 %; 40 mg triamcinolone acetonide 40 mg/mL Informed Consent: ??Laterality: ??Bilateral ??Relevant images/test results available and reviewed: no ?Health status cleared: ??Yes ??Procedure/treatment, purpose, treatment alternatives, risks/potential complications and benefits explained: yes ?Risk/complications/benefits details: ??Risks of infection, thinning of the skin and temporary skin discoloration discussed. ??Discussed risks of temporary increased pain after injection and swelling and mild redness at injection site for couple days. ??Explained occasionally cortisone injection can cause facial flushing temporarily. ??Benefits pain management. ??For postop injection pain ice, Tylenol and/or NSAIDs if patient can take ??Patient questions answered: yes ?Patient agrees, verbalizes understanding, and wants to proceed: yes ?Consent given by: ??Patient ??Informed consent discussion completed by Physician/KENDRICK with patient: ?? Verbal ??Pre-procedure timeout performed: yes ?? Disha GUILLEN IN CLINIC/BEDSIDE OR DERABLES * Lipid panel (05/01/2023) Triglycerides 0 mg/dL Comment:No interpretation, A bstracted Cholesterol 0 mg/dL Comment:No interpretation, A bstracted HDL 0 mg/dL Comment:No interpretation, A bstracted LDL Cholesterol 0 mg/dL Comment:No interpretation, A bstracted Blood Venous blood specimen / Unknown Historical Provider LAB BLOOD ORDERAB LES from Last 3 Months or Most Recently Relevant to Health Maintenance Advance Directives Documents on File Type Date Recorded Patient Automatic Mounter Expl anation Health Care Decision (hx) 04/27/2020 HILDA KOEHLER DIRECTIVE Care Teams Coping Machine Assembler Relationship Specialty Start Date End Date Bossman Hull PA [facility], [address] [address] PCP - General Internal Medicine 06/29/24
== END 2024-07-27 10:37 | disposition home or self-care (01) ==
DX: E78.5 Hyperlipidemia, unspecified (principal); D64.9 Anemia, unspecified; E66.01 Morbid (severe) obesity due to excess calories; Z68.43 Body mass index [BMI] 50.0-59.9, adult; K21.9 Gastro-esophageal reflux disease without esophagitis; I10 Essential (primary) hypertension; M17.0 Bilateral primary osteoarthritis of knee

== ENCOUNTER → 2024-07-27 09:51 | Outpatient (BNVA) | payer MEDICARE, SELFPAY | DX: E78.5 Hyperlipidemia, unspecified (principal); D64.9 Anemia, unspecified; K21.9 Gastro-esophageal reflux disease without esophagitis; E66.01 Morbid (severe) obesity due to excess calories; Z68.43 Body mass index [BMI] 50.0-59.9, adult; M17.0 Bilateral primary osteoarthritis of knee | CPT/HCPCS: 99212 ==

== ENCOUNTER 2024-10-26 09:32 | Outpatient (AMB) | payer MEDICARE, SELFPAY ==
[2024-10-26 09:35] VITALS: BP 130/74; PULSE 60; O2SAT 91; BMI 57.3
--- NOTE | 2024-10-26 09:35 | MHC.PC.OV ---
Vital Signs 10/26/24 09:35 10/26/24 10:06 Height 5 ft 8 in Weight 376 lb 15.847 oz BMI 57.3 BP 130/74 Blood Pressure Location Lt brachial Position Sitting Pulse 60 Pulse Source Pulse Oximeter Pulse Oximetry (%) 91 L 96 Oxygen Delivery Method Room Air Room Air Intake Visit Reasons: f/u medication Summer Intern Required: No Accompanied by: Self / Same As Patient Allergies amoxicillin Allergy (Intermediate, Verified 10/26/24 09:41) Diarrhea Medication List - Last Reconciled 10/26/24 by Karrie Mckinney PA-C acetaminophen ER (Tylenol 8 Hour) 650 mg PO Q8H amlodipine 10 mg PO DAILY ascorbic acid (vitamin C) mg PO aspirin 81 mg PO DAILY ferrous fumarate 324 mg PO DAILY flecainide 100 mg PO . BID furosemide (Lasix) 40 mg (2 x 20 mg) PO DAILY 7 days gabapentin 900 mg PO TID losartan 50 mg PO DAILY metoprolol succinate ER 25 mg PO DAILY pantoprazole 40 mg PO DAILY tramadol 50 mg PO BID vitamin B complex (B Complex-Vitamin B12 tablet) 1 tab PO DAILY Tobacco use date assessed: 10/26/24 Fall risk assessment: No Falls in past year Last assessed Fall Risk: 10/26/24 Dental Screening Dental Screen Date: 10/26/24 Did you have a dental visit in the last 12 months?: Yes Did you have a dental problem in the last 6 months where you did not have access to dental care?: No Was dental information given to patient?: Patient has dentist HPI f/u medication HPI Details 74-year-old male with past medical history of morbid obesity, hypertension, GERD, anemia, peripheral vascular disease, obstructive sleep apnea, prostate cancer, hyperlipidemia and depression last seen 07/2024 coming in for follow up. Presenting for a review of his lab work and prescription management. He had elevated cholesterol levels noted in past lab work, with the last recorded value from 2019, prompting the need for updated testing. He does report having labs done through [facility]. Ongoing management of chronic pain with tramadol is in place, with discussions about ensuring only one provider manages medication through a pain contract. He is currently transitioning from his practice in [place] and plans to leave the practice this month. [facility] Medical History Fractured talus Bilateral anterior knee pain Bovine stomatitis Kidney stones Surgical History History of carpal tunnel surgery S/P foot surgery, right H/O ankle fusion S/P tonsillectomy H/O knee surgery Hx of appendectomy H/O thumb surgery H/O wrist surgery S/P TAVR (transcatheter aortic valve replacement) Family History Father Cancer Social History Housing: House Alcohol intake: never Patient Tobacco Use Status: Former Tobacco user Tobacco use type: Cigarette e-Cigarette/Vaping Use: Never Used Second Hand Smoke Exposure: Yes service: No Current occupational status: disabled Current occupation: rt handed Cognitive needs: Yes (Walker, wheelchair, cane, crowches ) Hearing needs: No Vision needs: No Questionnaire PHQ-9 Over the last 2 weeks, how often have you been bothered by any of the following problems? 1. Little interest or pleasure in doing things: several days 2. Feeling down, depressed, or hopeless: not at all 3. Trouble falling or staying asleep, or sleeping too much: not at all 4. Feeling tired or having little energy: not at all 5. Poor appetite or overeating: not at all 6. Feeling bad about yourself - or that you are a failure or have let yourself or your family down: not at all 7. Trouble concentrating on things, such as reading the newspaper or watching television: not at all 8. Moving or speaking so slowly that other people could have noticed. Or the opposite - being so fidgety or restless that you have been moving around a lot more than usual: not at all 9. Thoughts that you would be better off or of hurting yourself in some way: not at all Total score: 1 Source: Developed by Drs. Brian Sutherland, Yazmin Sheehan, Dash Prince and colleagues, with an educational gerald from [employer] Thrive Questionnaire Date Thrive assessed: 10/26/24 I am a: Patient What is your living situation today?: I have a steady place to live Within the past 12 months, did the food you bought not last and you didn't have the money to get more?: Often true Within the past 12 months, did you worry whether your food would run out before you got money to buy more?: Never true Do you have trouble paying for medicines?: No Do you have trouble getting transportation to medical appointments?: Yes Do you have trouble paying your heating and electricity bill?: No Do you have trouble taking care of your child, family member or friend?: No Do you have trouble with day-to-day activities such as bathing, preparing meals, shopping, managing finances, etc.?: No Are you currently unemployed and looking for a job?: No Are you interested in more education?: No Please select the resources that you would like help with: None Currently or been in a relationship where the following occur: No concerns reported THRIVE Score: 2 AUDIT C Alcohol Use Questionnaire (AUDIT-C) 1. How often do you have a drink containing alcohol?: Never 3. How often do you have six or more drinks on one occasion?: Never Total Score: 0 LINETTE-7 AMB Questionnaire LINETTE-7 Date LINETTE - 7 assessed: 10/26/24 Feeling nervous, anxious, or on edge: 0 = Not at all Not being able to stop or control worryin = Not at all Worrying too much about different things: 0 = Not at all Trouble relaxin = Not at all Being so restless that it is hard to sit still: 0 = Not at all Becoming easily annoyed or irritable: 0 = Not at all Feeling afraid as if something awful might happen: 0 = Not at all Total LINETTE-7 score (0-4 normal; 5-9 mild; 10-14 moderate; 15-21 severe): 0 Source: Developed by Drs. Brian Sutherland, Yazmin Sheehan, Dash Prince and colleagues, with an educational gerald from [employer] Review of Systems Const Denies body aches, Denies chills, Denies fever(s), Denies headache(s) and Denies poor appetite Eyes Reports no additional complaints ENT Denies dizziness and Denies headache(s) Card Denies chest pain and Denies dyspnea Resp Denies cough and Denies dyspnea GI Denies nausea and Denies vomiting Reports no additional complaints Musc Reports no additional complaints and Denies abnormal gait Skin/Breast Reports system reviewed and no additional complaints, except as documented Neuro Denies abnormal gait, Denies dizziness and Denies headache(s) Psych Reports no additional complaints Physical exam (Primary Care) Vital Signs: Oxygen Delivery Method Room Air 10/26/24 09:35 BMI result Body Mass Index 57.3 Tobacco/Smoking Status: Tobacco use Status Tobacco use date assessed 07/27/24 07/27/24 09:59 Patient Tobacco Use Status Former Tobacco user 07/27/24 10:03 Tobacco use type Cigarette 07/27/24 10:03 e-Cigarette/Vaping Use Never Used 07/27/24 10:03 Thrive Assessment: Date of Thrive Assessment Date Thrive assessed 07/27/24 07/27/24 10:06 Currently or been in a relationship where the following occur: No concerns reported Const General: cooperative, healthy appearing, comfortable and no acute distress Orientation/consciousness: patient oriented x3 HENMT Head: Yes normocephalic Ears: hearing grossly normal bilaterally General nose exam: Normal external nose present Eyes General: appearance normal, both eyes and all related structures Conjunctivae: conjunctivae normal Neck Neck: Yes full ROM and Yes no lymphadenopathy Resp Effort & Inspection: normal respiratory effort Auscultation: clear to auscultation bilaterally, no crackles, no rales, no rhonchi and no wheezes Cardio Rate: regular rate Rhythm: regular rhythm Skin General skin exam: no rashes or lesions noted Neuro General: patient oriented x3 Gait exam (Neuro): Normal gait present Extrem General: Yes normal to inspection, Yes full ROM and No edema Psych Affect: normal affect Attitude: cooperative Insight: Good insight present (Psych) Judgement: Good judgement present (Psych) Coding Level of Care Code Est Pt Level 3 (67738) Diagnoses Hyperlipidemia E78.5 Anemia D64.9 Hypertension I10 Morbid obesity with BMI of 50.0-59.9, adult E66.01; Z68.43 Osteoarthritis of knees, bilateral M17.0 Assessment & Plan Assessment & Plan (1) Hyperlipidemia: Code(s): E78.5 - Hyperlipidemia, unspecified Category: Medical Plan: Avoid foods that are high in cholesterol such as red meat, fried foods, eggs and baked goods. Triglyceride goal of less than 150 and LDL goal of less than 100. (2) Anemia: Code(s): D64.9 - Anemia, unspecified Category: Medical Plan: Patient states he recently had blood work done and his hemoglobin had returned to a normal level. He has been following with [facility] and has appt next year with them but does continue to follow with routine blood work. (3) Hypertension: Code(s): I10 - Essential (primary) hypertension Category: Medical Plan: Continue on current blood pressure medication. Avoid salt intake and encourage healthy diet and regular exercise. Blood pressures at home have been within the normal range in the log was reviewed today. (4) Morbid obesity with BMI of 50.0-59.9, adult: Code(s): E66.01 - Morbid (severe) obesity due to excess calories; Z68.43 - Body mass index [BMI] 50.0-59.9, adult Category: Medical Plan: Healthy diet and regular exercise is encouraged. (5) Osteoarthritis of knees, bilateral: Code(s): M17.0 - Bilateral primary osteoarthritis of knee Category: Medical Plan: Patient following with Dr. Tapia through [facility] and recently had bilateral knee injections July 01. He is on chronic pain medication with tramadol 50 mg b.i.d. which he is currently receiving through his previous PCP. He is 1 final appointment with them in August and then we will be transitioning to our care. I discussed with the patient that I would be taking over this prescription under the recommendation through pain management however he will need to follow up every 30 days and can not receive this prescription from any other provider going forward. I will plan to take over the tramadol once he is fully transitioned from his other primary care practice. He will need to sign a pain contract through our office as well. Plan The visit focused on reviewing lab results and managing prescription issues, notably regarding cholesterol and thyroid levels. We stressed the transition of pain management medications to be handled by me, highlighted by obtaining a new pain contract as necessary. Labs will be rerun to evaluate cholesterol levels and thyroid function. Communication will be improved through the patient portal for prescriptions. The patient will remain under regular care with both hematology and pulmonology specialists, staying abreast of their management. Transferring of care from [place] is underway to centralize management under my practice. This note was constructed using voice recognition software. While every effort has been made to ensure accuracy and records analyst, still areas may have been included sometimes these areas may affect the content or meeting of the given symptoms. Total time spent caring for the patient today was 20 minutes. This includes time spent before the visit reviewing the chart, time spent during the visit, and time spent after the visit and documentation. Patient was informed and verbally consented to the use of an ambient scribe for clinic note documentation during this visit.
[2024-10-26 10:06] VITALS: O2SAT 96
--- OUTSIDE RECORDS SUMMARY | 2024-10-26 10:37 | XMS_ITS | Clinical Summary ---
Author Organization [facility] Address [address] [place] [address] Care Team Providers Care Pr Internship Name Role Phone Destiny Ortega NP Primary Care Provider [phone] Allergies Active Allergy Reactions Criticality Noted Date [...] age to complete this topic Care Teams Pr Internship Relationship Specialty Start Date End Date Destiny Ortega NP [address] [facility] [place] [address] PCP - General Family Medicine 08/21/22
--- OUTSIDE RECORDS SUMMARY | 2024-10-26 10:37 | XMS_ITS ---
Author Organization [facility] Care Team Providers Care Grinding Supervisor Name Role Phone Namrata Canseco Unavailable Unavailable Jamila Campbell Unavailable Unavailable Laurie Navarro Unavailable Unavailable Kelly Dyer Unavailable Unavailable Allergies and adverse reactions Code CodeSystem Substance Reaction Severity StartDate Concern Status 723 RXNORM Amoxicillin Unknown 04/14/2020 active Care Team Name Role Address Phone Organization Dates Jamila Campbell PCP [address] [place] [address], [facility] (Office): : [facility] 04/14/2020 - 05/22/2020 Namrata Canseco Attending Physician [address] [place] [address], [facility] (Office): : [facility] 04/14/2020 - 05/22/2020 Laurie Navarro Attending Physician [address] [place] [address], [facility] (Office): : [facility] 04/14/2020 - 05/22/2020 Kelly Dyer Attending Physician [address] [place] [address], [place] [address], [facility] (Office): : [facility] 04/14/2020 - 05/22/2020 Goals Section Description Status Target Date ADL's MOBILITY IMPAIRED-Improve skills to achiev e discharge Active 07/15/2020 BEHAVIOR/ANXIETY/AGITATION - reduce symptoms wit hout complications Active 07/15/2020 BOWEL/BLADDER IMPAIRMENT: Achieve continence and prevent infection Active 07/15/2020 EDUCATION - Resident/caregiv er will achieve desired or required knowledge for discharge Active 07/15/2020 FALL RISK - Resident will be free of injury from fall High Risk (full score) Fall in past 6 months Active 07/15/2020 I will enjoy participating i n a satisfying activity program through the next review date. Active 07/15/2020 My advanced directives will be honored and followed per me or my legal surrogates specifications Active 07/15/2020 My family and I will partici mccarthy in discharge planning meetings prior to my discharge Active 07/15/2020 PAIN- ALTERATION IN COMFORT- Reduce pain/remain pain free Active 07/15/2020 Patient will maintain best function for abilitie s Active 07/15/2020 SKIN IMPAIRMENT- Skin will r emain intact-Potential: Noonan Scale Risk: Moderate = 11-15; High = 5-10 Active 07/15/2020 The resident will have intac t skin, free of redness, blisters or discoloration by/through review date. Active 07/15/2020 The resident will improve cu rrent level of function in (SPECIFY ADLs) through the review date. Resident will be able to: (SPECIFY) Active 07/15/2020 Lee will demonstrate adju stment to retirement placement and limitations by/through the next quarter. Active 07/15/2020 Lee will have improved mo od state as evidenced by happier, calmer appearance, no s/sx of depression, anxiety, restlessness or sadness through the quarter. Active 07/15/2020 Will have intake >/=75% of m eals W ill have stable weights 2' diuretic use W ill tolerate diet Active 07/15/2020 Immunizations Immunization Status Vaccine Details Vaccine Code CodeSystem Moshe e Notes Influenza completed Influenza, high- dose, split virus, quadrivalent, injectable, preservative free lotNumber: [id number] expiry: 12/28/2020 Mfg: Flucelvax Quadrivalent Given 0.5 ml Left Deltoid intramuscularly 197 CVX created date: 05/17/2020 consent date: 05/17/2020 administered date: 05/17/2020 Mental Status Section Date Assessment Total Score Description 05/22/2020 BIMS 11 moderate cognit efrain impairment CAM 0 No delirium ind icated PHQ-9 12 moderate depres francesco 05/07/2020 BIMS 11 moderate cognit efrain impairment CAM 0 No delirium ind icated PHQ-9 12 moderate depres francesco Problems Problem # Description Date of onset Resolved Date Code CodeSystem Concern Status 1 COGNITIVE COMMUNICATION DEFICIT 04/20/[address] active 2 ACUTE RESPIRATORY FAILURE WITH HYPOXIA 04/14/[address] active 3 ATHEROSCLEROTIC HEART DISEASE OF [place] CORONARY ARTERY WITHOUT ANGINA PECTORIS 04/14/[address] active 4 CALCULUS OF KIDNEY 04/14/[address] active 5 ESSENTIAL (PRIMARY) HYPERTENSION 04/14/[address] active 6 HYPERLIPIDEMIA, UNSPECIFIED 04/14/[address] active 7 IRON DEFICIENCY ANEMIA SECONDARY TO BLOOD LOSS (CHRONIC) 04/14/[address] active 8 MORBID (SEVERE) OBESITY DUE TO EXCESS CALORIES 04/14/[address] active 9 OBSTRUCTIVE SLEEP APNEA (ADULT) (PEDIATRIC) 04/14/[address] active 10 OTHER ABNORMALITIES OF GAIT AND MOBILITY 04/14/[address] active 11 OTHER SPECIFIED ARTHRITIS, MULTIPLE SITES 04/14/[address] active 12 PERIPHERAL VASCULAR DISEASE, UNSPECIFIED 04/14/[address] active 13 PERSONAL HISTORY OF MALIGNANT NEOPLASM OF PROSTATE 04/14/[address] active 14 STREPTOCOCCAL INFECTION, UNSPECIFIED SITE 04/14/[address] active 15 STREPTOCOCCAL SEPSIS, UNSPECIFIED 04/14/[address] active 16 UNSPECIFIED ATRIAL FIBRILLATION 04/14/[address] active 17 UNSPECIFIED DIASTOLIC (CONGESTIVE) HEART FAILURE 04/14/[address] active 18 UNSTEADINESS ON FEET 04/14/[address] active 19 URINARY TRACT INFECTION, SITE NOT SPECIFIED 04/14/[address] active 20 VITAMIN D DEFICIENCY, UNSPECIFIED 04/14/[address] active 21 WEAKNESS 04/14/[address] active Reason for Referral No Reasons for Referral Entered Social History Social History Observation Description Start Date End Date Code Code System Current Smoking Status Tobacco smoking consumption unknown 059247600 SNOMED CT Sex Assigned At Male 1950 38475-7 [facility] Vital Signs Code Code System Vitals Name Values and Units Timing Information 22539-8 [facility] Pain Level Value=4.0 05/22/2020 9279-1 [facility] Respiratory Rate Value=18.0 Units=/m in 05/22/2020 8462-4 [facility] Blood Pressure-Diastolic Value=64 Un its=mmHg 05/22/2020 8480-6 [facility] Blood Pressure-Systolic Xurgu=264 Un its=mmHg 05/22/2020 8310-5 [facility] Body Temperature Value=98.0 Units=?? F 05/22/2020 8867-4 [facility] Heart rate Value=68.0 Units=/min 23582-5 [facility] O2 % BldC Oximetry Value=98.0 Units= % 05/22/2020 54170-3 [facility] Weight Wcetm=212.6 Units=Lbs 8302-2 [facility] Height Value=5.6 Units=Inches 04/15/2020
--- OUTSIDE RECORDS SUMMARY | 2024-10-26 10:37 | XMS_ITS | Encounter Summary ---
Author Organization [facility] Address [address] [place] [address] Care Team Providers Care Modeling And Simulation Analyst Name Role Phone Bossman Hull Primary Care Provider [phone] Encounter Details Date Type Department Care Team (Late st Contact Info) Description 10/14/2024 Lab Requisition [facility] - Main Lab [address] [facility] [place] [phone] Dexter Rodas MD [address] [facility] [address] [place] [address] Elevated prostate specific antigen (PSA) Social History Tobacco Use Types Packs/Day Years Used Date Smoking Tobacco: Never Smokeless Tobacco: Never Sex and Gender Information Value Date Recorded Sex Assigned at Not on file Legal Sex Male 3:52 PM EST Gender Identity Not on file Sexual Orientation Not on file documented as of this encounter Plan of Treatment Upcoming Encounters Date Type Department Care Team (Late st Contact Info) Description 12/28/2024 9:45 AM EDT Office Visit Orthopedic Surgery - [place] [address] [facility] [address] [place] [phone] Isidra Tapia MD 175 [facility] [address] [place] [address] documented as of this encounter Goals Goal Patient Goal Type Associated Problems Recent Progress Patient-Stated? Author Pt goal General Yes Pb Lorenz, OT Note: Be able to use my hand, not drop everything documented as of this encounter Procedures Procedure Name Priority Date/Time Associated Diagnosis Comments AP OUTSIDE CONSULT Routine 10/12/2024 Elevated prostate specific antigen (PSA) documented in this encounter Results * Anatomic pathology outside consult (10/12/2024) Final Diagnosis A. Prostate, Left Middle [place] Biopsy: - Benign prostatic tissue. B. Prostate, Left Lateral [place] Biopsy: - Prostatic acinar adenocarcinoma (conventional type), grade group 1 (Robbie score 3+3=6). - Tumor continuously involves 7% of 1 of 1 tissue core. C. Prostate, Left Middle Middle Biopsy: - Benign prostatic tissue. D. Prostate, Left Lateral Middle Biopsy: - Prostatic acinar adenocarcinoma (conventional type), grade group 2 (Robbie score 3+4=7). - Percentage pattern 4: 30%. - Tumor continuously involves 20% of 1 of 1 tissue core. E. Prostate, Left Middle Base Biopsy: - Prostatic acinar adenocarcinoma (conventional type), grade group 1 ([place] score 3+3=6). - Tumor continuously involves 8% of 1 of 1 tissue core. F. Prostate, Left Lateral Base Biopsy: - Prostatic acinar adenocarcinoma (conventional type), grade group 1 ([place] score 3+3=6). - Tumor continuously involves 6% of 1 of 1 tissue core. G. Prostate, Left Mid Peripheral Zone Biopsy: - Atypical intraductal proliferation Note: PIN4 stain was performed to determine the nature of a proliferation of cribriform glands as invasive cribriform adenocarcinoma versus an atypical intraductal proliferation. The PIN4 stain shows the cribriform glands stain positive for basal cell markers, supporting the above diagnosis, and rules out an invasive adenocarcinoma. PIN4 immunostain performed at [facility] lab, [address] [place] [address] [address], [place] [address], CLIA #[id number]. H. Prostate, Right Middle [place] Biopsy: - Benign prostatic tissue. I. Prostate, Right Lateral [place] Biopsy: - Prostatic acinar adenocarcinoma (conventional type), grade group 2 (Robbie score 3+4=7). - Percentage pattern 4: 10%. - Tumor continuously involves 85% of 1 of 1 tissue core. J. Prostate, Right Middle Middle Biopsy: - Benign prostatic tissue. K. Prostate, Right Lateral Middle Biopsy: - Prostatic acinar adenocarcinoma (conventional type), grade group 1 (Robbie score 3+3=6). - Tumor continuously involves 8% of 1 of 1 tissue core. L. Prostate, Right Middle Base Biopsy: - Benign prostatic tissue. M. Prostate, Right Lateral Base Biopsy: - Benign prostatic tissue. N. Prostate, Right Mid Peripheral Zone Biopsy: - Prostatic acinar adenocarcinoma (conventional type), grade group 2 ([place] score 3+4=7). - Percentage pattern 4: 5%. - Tumor continuously involves 38% of overall tissue, present in 3 of 3 tissue cores. [facility] Clinical Information Elevated PSA R97.20 PSA: 4.1 (09/07/24) [id number] 10/20/2024 11:43 [address] [facility] Gross Description A. Prostate, Left Middle [place] Biopsy: Received, properly labeled, are two H and E stained slides and two unstained slides. B. Prostate, Left Lateral [place] Biopsy: Received, properly labeled, are two H and E stained slides and two unstained slides. C. Prostate, Left Middle Middle Biopsy: Received, properly labeled, are two H and E stained slides and two unstained slides. D. Prostate, Left Lateral Middle Biopsy: Received, properly labeled, are two H and E stained slides and two unstained slides. E. Prostate, Left Middle Base Biopsy: Received, properly labeled, are two H and E stained slides and two unstained slides. F. Prostate, Left Lateral Base Biopsy: Received, properly labeled, are two H and E stained slides and two unstained slides. G. Prostate, Left Mid Peripheral Zone Biopsy: Received, properly labeled, are two H and E stained slides and two unstained slides. H. Prostate, Right Middle [place] Biopsy: Received, properly labeled, are two H and E stained slides and two unstained slides. I. Prostate, Right Lateral [place] Biopsy: Received, properly labeled, are two H and E stained slides and two unstained slides. J. Prostate, Right Middle Middle Biopsy: Received, properly labeled, are two H and E stained slides and two unstained slides. K. Prostate, Right Lateral Middle Biopsy: Received, properly labeled, are two H and E stained slides and two unstained slides. L. Prostate, Right Middle Base Biopsy: Received, properly labeled, are two H and E stained slides and two unstained slides. M. Prostate, Right Lateral Base Biopsy: Received, properly labeled, are two H and E stained slides and two unstained slides. N. Prostate, Right Mid Peripheral Zone Biopsy: Received, properly labeled, are two H and E stained slides and two unstained slides. /al 10/20/2024 11:43 AM EDT [facility] Disclaimer Unless otherwise specified, all tissue is 10% NB formalin fixed and paraffin embedded. Technical pathology services provided by [facility] at [address] [place] [address] [address], [place] [address] (CLIA #[id number]/Neda Beebe MD, Registered Nurse Nursery) 10/20/2024 11:43 AM EDT [facility] Tissue Prostate / Unknown 10/12/20242024 9:40 AM EDT Tissue specimen (specimen) Prostate / Unknown 10/12/2024 10/14/2024 9: 43 AM EDT Tissue specimen (specimen) Prostate / Unknown 10/12/2024 10/14/2024 9: 43 AM EDT Tissue specimen (specimen) Prostate / Unknown 10/12/2024 10/14/2024 9: 43 AM EDT Tissue specimen (specimen) Prostate / Unknown 10/12/2024 10/14/2024 9: 43 AM EDT Tissue specimen (specimen) Prostate / Unknown 10/12/2024 10/14/2024 9: 43 AM EDT Tissue specimen (specimen) Prostate / Unknown 10/12/2024 10/14/2024 9: 43 AM EDT Tissue specimen (specimen) Prostate / Unknown 10/12/2024 10/14/2024 9: 43 AM EDT Tissue specimen (specimen) Prostate / Unknown 10/12/2024 10/14/2024 9: 43 AM EDT Tissue specimen (specimen) Prostate / Unknown 10/12/2024 10/14/2024 9: 43 AM EDT Tissue specimen (specimen) Prostate / Unknown 10/12/2024 10/14/2024 9: 43 AM EDT Tissue specimen (specimen) Prostate / Unknown 10/12/2024 10/14/2024 9: 43 AM EDT Tissue specimen (specimen) Prostate / Unknown 10/12/2024 10/14/2024 9: 43 AM EDT Tissue specimen (specimen) Prostate / Unknown 10/12/2024 10/14/2024 9: 43 AM EDT us Dexter Rodas MD LAB PATHOLOGY ORDERABLES Final R esult [facility] [address] [place] [address], documented in this encounter Visit Diagnoses Diagnosis Elevated prostate specific antigen (PSA) documented in this encounter Care Teams Modeling And Simulation Analyst Relationship Specialty Start Date End Date Bossman Hull PA [facility], [address] [address] PCP - General Internal Medicine 06/29/24 documented as of this encounter
--- OUTSIDE RECORDS SUMMARY | 2024-10-26 10:37 | XMS_ITS | Clinical Summary ---
Author Organization 175 [facility] Address [address] [place] [address] Phone Care Team Providers Care Cryptographic Machine Operator Name Role Phone Bossman Hull Primary Care Provider [phone] Allergies Active Allergy Reactions Criticality Noted Date Comments Amoxicillin Diarrhea Low 03/08/2020 Medications amLODIPine (NORVASC) 10 mg tablet Take 1 [...] tartrate (LOPRESSOR) 25 mg tablet Take 1 tablet (25 mg total) by mouth 1 (one) time each day after breakfast. Active pantoprazole (PROTONIX) 40 mg EC tablet Take 1 Tablet by mouth daily. Active triamcinolone acetonide (KENALOG-40) 40 mg/mL injection Inject 1 mL into the articular space 2 Times Daily. 4 Active ascorbic acid (VITAMIN C) 500 mg tablet Take 1 tablet (500 mg total) by mouth. Active cyanocobalamin (Vitamin B-12) 1,000 mcg tablet Take 1 tablet (1,000 mcg total) by mouth daily. Active ibuprofen (ADVIL,MOTRIN) 600 mg tablet Take 1 tablet (600 mg total) by mouth. 4 Active acetaminophen (TYLENOL 8 HOUR) 650 mg 8 hr tablet 2 tab(s) prn 6 Active aspirin 81 mg EC tablet Take 1 tablet (81 mg total) by mouth. 1 Active bisacodyL (DULCOLAX) 10 mg suppository Insert 1 suppository (10 mg total) into the rectum. Active cholecalciferol (VITAMIN D-3) 50 mcg (2,000 unit) tablet Take 1 tablet (2,000 Units total) by mouth daily. Active clindamycin (CLEOCIN) 300 mg capsule TAKE 2 CAPSULES BY MOUTH 1 HOUR BEFORE APPT Active clopidogreL (PLAVIX) 75 mg tablet Take 1 tablet (75 mg total) by mouth. 0 Active diclofenac (VOLTAREN) 1 % topical gel 2-4 gm TID PRN right foot 2 Active ferrous sulfate 325 mg (65 mg iron) EC tablet Take 1 tablet (325 mg total) by mouth. Active lidocaine 4 % patch Apply topically. 0 Active miscellaneous medical supply [facility] Two custom made compression knee socks, right lower extremity. Wear daily as directed. 0 Active metoprolol succinate (TOPROL-XL) 25 mg 24 hr tablet Take 1 tablet (25 mg total) by mouth. 3 Active predniSONE (DELTASONE) 10 mg tablet 5 tablets by mouth daily for 2 days then decrease by 1 pill every 2 days until finished 3 Active senna-docusate (PERICOLACE) 8.6-50 mg per tablet Take 2 tablets by mouth. 4 Active traMADoL (ULTRAM) 50 mg tablet Take 1 tablet (50 mg total) by mouth 2 times daily. Max Daily Amount: 100 mg 4 Active valsartan (DIOVAN) 40 mg tablet Take 1 tablet (40 mg total) by mouth. 0 Active Hospital, Clinic, or Other Facility Administered Medication Ordered Dose Route Frequency Start Date End Date Status lidocaine (XYLOCAINE) 1 % injection 6 mLIndications:Chroni c right shoulder pain 6 mL inj Once PRN Procedure 10/20/2024 10/20/2024 Ended triamcinolone acetonide (KENALOG-40) 40 mg/mL injection 40 mgIndications:Chroni c right shoulder pain 40 mg IAtc Once PRN Procedure 10/20/2024 10/20/2024 Ended Active Problems Problem Noted Date Diagnosed Date Lymphedema 09/23/2024 Disorder of appendage of skin 09/23/2024 Abdominal pannus 09/23/2024 Right wrist pain 09/01/2024 Pain of right thumb 09/01/2024 History of decompression of ulnar nerve 07/13/19 25 Surgery follow-up 06/29/2024 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 05/05/20 24 Severe obesity ([facility] V24, [facility] V28) 2023 Osteoarthritis 05/05/2024 Bradycardia, unspecified 04/06/2024 Gastrointestinal hemorrhage, unspecified 024 Unspecified protein-calorie malnutrition ([facility]/ C V24) 04/06/2024 Morbid (severe) obesity due to excess calories ([facility] V24, [facility] V28) 04/06/2024 Unspecified atrial fibrillation ([facility] V24, [facility] S/[facility] V28) 04/06/2024 Osteoarthritis of first carpometacarpal joint, u nspecified 04/06/2024 Diverticulosis 03/26/2024 Primary osteoarthritis of fi rst carpometacarpal joint of right hand 12/11/2023 Right carpal tunnel syndrome 12/11/2023 Mass of right lower leg 12/09/2023 Bundle branch block, right 11/06/2023 Complex sleep apnea syndrome 11/06/2023 Cubital tunnel syndrome on right 11/06/2023 HLD (hyperlipidemia) 11/06/2023 HTN (hypertension) 11/06/2023 Morbid obesity ([facility] V24, [facility] V28) 2023 Neuropathy 11/06/2023 Obesity hypoventilation syndrome ([facility] V24, C [place]/[facility] V28) 11/06/2023 Osteoarthrosis 11/06/2023 Paroxysmal atrial fibrillation ([facility] V24, [facility] V28) 11/06/2023 Trigger little finger of right hand 11/06/2023 Unsteady gait when walking 11/06/2023 S/P [...] Encounters Date Type Department Care Team Description 10/20/2024 10:45 AM EDT Office Visit Orthopedic Surgery - [place] [address] [facility] [address] [place] [phone] Isidra Tapia MD Chronic right shoulder pain (Primary Dx) 10/14/2024 Lab Requisition [facility] - Main Lab [address] [facility] [place] [phone] Dexter Rodas MD Elevated prostate specific antigen (PSA) 09/23/2024 10:00 AM EDT Consult Plastic & Reconstructive Surgery [facility] [address] [place] [phone] Randy Gordon, Lymphedema (Primary Dx); Disorder of appendage of skin; Abdominal pannus 09/22/2024 9:15 AM EDT Treatment [facility] [address] [phone] Pb Lorenz, OT Cubital tunnel syndrome on right (Primary Dx); Right carpal tunnel syndrome; History of decompression of ulnar nerve; Primary osteoarthritis of first carpometacarpal joint of right hand 09/15/2024 9:30 AM EDT Treatment [facility] [address] [phone] Amelie Perry COTA 09/08/2024 9:30 AM EDT Treatment [facility] [address] [phone] Amelie Perry COTA 08/31/2024 10:30 AM EST Treatment [facility] [address] [phone] Pb Lorenz, OT Cubital tunnel syndrome on right (Primary Dx); History of decompression of ulnar nerve; Primary osteoarthritis of first carpometacarpal joint of right hand; Right carpal tunnel syndrome 08/31/2024 9:45 AM EST Office Visit Orthopedic Surgery - [place] [address] [facility] [address] [place] [phone] Isidra Tapia MD Pain of right thumb (Primary Dx); Right wrist pain; Trigger little finger of right hand; Trigger finger, left middle finger 08/25/2024 9:15 AM EST Treatment [facility] [address] [phone] Pb Lorenz, OT Cubital tunnel syndrome on right (Primary Dx); History of decompression of ulnar nerve; Primary osteoarthritis of first carpometacarpal joint of right hand; Right carpal tunnel syndrome 08/10/2024 9:15 AM EST Treatment [facility] [address] [phone] Pb Lorenz, OT Cubital tunnel syndrome on right (Primary Dx); History of decompression of ulnar nerve; Primary osteoarthritis of first carpometacarpal joint of right hand; Right carpal tunnel syndrome 08/03/2024 9:30 AM EST Treatment [facility] [address] [phone] Amelie Perry COTA 07/06/2024 Plan of Care Documentation [facility] [address] [phone] from Last 3 Months Immunizations Name Administration [...] PROCEDURE: HISTORICAL KNEE SURGERY; COMMENT: Meniscus surgery CARPAL TUNNEL RELEASE 04/02/2024 Right w/ trapeziectomy and interpostional arthoplasty ELBOW SURGERY 04/02/2024 Right ulnar decompression Medical History Medical History Date Comments Iron [...] Date Smoking Tobacco: Never Smokeless Tobacco: Never Tobacco Cessation:Counseling Given: Not Answered Sex and Gender Information Value Date Recorded Sex Assigned at Not on file Legal Sex Male 3:52 PM EST Gender Identity Not on file Sexual Orientation Not on file Obstetrics History Last Filed Vital Signs Vital Sign Reading Time Taken Comments Blood Pressure 145/68 09/23/2024 9:57 AM EDT Pulse 60 09/23/2024 9:57 AM EDT Temperature - - Respiratory Rate - - Oxygen Saturation - - Inhaled Oxygen Concentration - - Weight 175 kg (385 lb) 10/20/2024 10:40 AM EDT Height 167.6 cm (5' 6 ) 10/20/2024 10:40 AM EDT Body Mass Index 62.14 10/20/2024 10:40 AM EDT Plan of Treatment Upcoming Encounters Date Type Department Care Team (Late st Contact Info) Description 12/28/2024 9:45 AM EDT Office Visit Orthopedic Surgery - [place] [address] [facility] [address] [place] [phone] Isidra Tapia MD 175 [facility] [address] [place] [address] Health Maintenance Due Date Last Done Comments Colorectal Cancer Screening: Colonoscopy 08/04/2023 Depression Screening 08/04/2023 04/26/2022 Falls Risk Assessment 08/04/2023 Medicare Annual Wellness Visit 08/04/2023 Social Influencers of Health Screening 08/04/2023 DTaP,Tdap,and Td Vaccines (2 - Td or Tdap) 10/24/2023 10/23/2013 COVID-19 Vaccine (7 - Moderna risk ) 10/21/2024 04/22/2024, 05/30/2023, 04/16/2022, Additional history exists Hypertension/CHF/CAD Annual BMP Blood Test 05/05/2025 05/05/2024, 03/24/2024, 03/24/2024, Additional history exists Cholesterol Screening (Lipid Panel) 05/05/2029 05/05/2024, 05/01/2023, 05/01/2023 Zoster Vaccines Completed 08/29/2018, 1010/2017, 04/29/2014 Hepatitis C Screening Completed 04/10/2019 Pneumococcal Vaccine: 50+ Years Completed 04/10/2019, 01/27/2015, 05/08/2013 RSV Immunization Adult Patients Completed 05/16/2023 Influenza Vaccine Completed 04/09/2024, , 05/01/2023, Additional history exists HIB Vaccines Aged Out [...] patient's age to complete this topic Meningococcal B Vaccine Aged Out No l onger eligible based on patient's age to complete [...] to use my hand, not drop everything Procedures Procedure Name Priority Date/Time Associated Diagnosis Comments XR SHOULDER 2+ VIEWS RIGHT Routine 10/20/2024 11:27 AM EDT Chronic right shoulder pain CA ARTHROCENTESIS/ASPIR ATION/INJECTION MAJOR JOINT/BURSA W/O U/S GUIDANCE Routine 10/20/2024 10:45 AM EDT Chronic right shoulder pain AP OUTSIDE CONSULT Routine 10/12/2024 Elevated prostate specific antigen (PSA) XR FINGERS 2+ VIEWS RIGHT Routine 08/31/2024 10:39 AM EST Pain of right thumb XR WRIST 3+ VIEWS RIGHT Routine 08/31/2024 10:39 AM EST Right wrist pain CA INJECTION SINGLE TENDON SHEATH OR LIGAMENT APONEUROSIS Routine 08/31/2024 9:45 AM EST Trigger finger, left middle finger CA INJECTION SINGLE TENDON SHEATH OR LIGAMENT APONEUROSIS Routine 08/31/2024 9:45 AM EST Trigger little finger of right hand HM ANNUAL BMP BLOOD TEST Routine 03/24/2024 LIPID PANEL Routine 05/01/2023 from Last 3 Months or Most Recently Relevant to Health Maintenance Results * XR Shoulder 2+ Views Right (10/20/2024 11:27 AM EDT) Anatomical Region Laterality Modality Upper Extremities, Shoulder Right Comp uted Radiography Narrative 10/20/2024 7:29 PM EDT AP, true AP, and Y view of the right shoulder was obtained on 10/20/2024. ?? No prior images are available for comparison. ??Patient has notable glenohumeral arthritis with narrowing of the joint space, subchondral cyst formation, and inferior marginal osteophytes. ??He has some enlargement of the end of the clavicle at the AC joint but with maintenance of joint space. ??There is some sclerosis at the tuberosity at the insertion of the rotator cuff. ??Patient noted to have some patchy changes through the right hilum of the lung and some cardiac silhouette enlargement although this is not an ideal series to evaluate these. ??There are no obvious fractures or lytic lesions evident. Impression: Glenohumeral arthritis us Isidra Tapia MD IMG XR PROCEDURES Final Resul t * CA ARTHROCENTESIS/ASPIRATION/INJECTION MAJOR JOINT/BURSA W/O U/S GUIDANCE (10/20/2024 10:45 AM EDT) Narrative Isidra Tapia MD - 10/20/2024 10:45 AM EDT Isidra Tapia MD ? 10/20/2024 ??7:34 PM Large joint Inj/Asp: R subacromial bursa Indications: pain Details: 22 G needle, posterior approach Medications: 6 mL lidocaine 1 %; 40 mg triamcinolone acetonide 40 mg/mL The right shoulder was confirmed. ??Posterior approach was utilized. ??Skin was prepped with Betadine alcohol. ??Skin was anesthetized with 1 cc of 1% lidocaine with epinephrine. ??The site was then prepped again and in a sterile fashion subacromial injection of lidocaine 1% plain mixed with 40 mg of Kenalog was injected. ??Patient tolerated this well and a bandage was applied. Informed Consent: ??Laterality: ??Right ??Relevant images/test results available and reviewed: yes ?Procedure/treatment, purpose, treatment alternatives, risks/potential complications and benefits explained: yes ?Risk/complications/benefits details: ??Incomplete relief, tissue degradation, infection ??Patient questions answered: yes ?Patient agrees, verbalizes understanding, and wants to proceed: yes ?Consent given by: ??Patient ??Informed consent discussion completed by Physician/KENDRICK with patient: ?? Verbal Isidra Tapia MD IN CLINIC/BEDSIDE ORDERABLES Final Result * Anatomic pathology outside consult (10/12/2024) Final Diagnosis A. Prostate, Left Middle [place] Biopsy: - Benign prostatic tissue. B. Prostate, Left Lateral [place] Biopsy: - Prostatic acinar adenocarcinoma (conventional type), grade group 1 (Robbie score 3+3=6). - Tumor continuously involves 7% of 1 of 1 tissue core. C. Prostate, Left Middle Middle Biopsy: - Benign prostatic tissue. D. Prostate, Left Lateral Middle Biopsy: - Prostatic acinar adenocarcinoma (conventional type), grade group 2 (Maitland score 3+4=7). - Percentage pattern 4: 30%. [...] (Robbie score 3+3=6). - Tumor continuously involves 6% [...] an invasive adenocarcinoma. PIN4 immunostain performed at [facility] lab, [address], [place] [address], CLIA #[id number]. H. Prostate, Right Middle [place] Biopsy: - Benign prostatic tissue. I. Prostate, Right Lateral [place] Biopsy: - Prostatic acinar adenocarcinoma (conventional type), grade group 2 (Maitland score 3+4=7). - Percentage pattern 4: 10%. - Tumor continuously involves 85% of 1 of 1 tissue core. J. Prostate, Right Middle Middle Biopsy: - Benign prostatic tissue. K. Prostate, Right Lateral Middle Biopsy: - Prostatic acinar adenocarcinoma (conventional type), grade group 1 (Maitland score 3+3=6). - Tumor continuously involves 8% of 1 of 1 tissue core. L. Prostate, Right Middle Base Biopsy: - Benign prostatic tissue. M. Prostate, Right Lateral Base Biopsy: - Benign prostatic tissue. N. Prostate, Right Mid Peripheral Zone Biopsy: - Prostatic acinar adenocarcinoma (conventional type), grade group 2 (Maitland score 3+4=7). - Percentage pattern 4: 5%. - Tumor continuously involves 38% of overall tissue, present in 3 of 3 tissue cores. 10/20/2024 11:43 AM [facility] Clinical Information Elevated PSA R97.20 PSA: 4.1 (09/07/24) [id number] 10/20/2024 11:43 AM [facility] Gross Description A. Prostate, Left Middle [place] Biopsy: Received, properly labeled, are two H and E stained slides and two unstained slides. B. Prostate, Left Lateral [place] Biopsy: Received, properly labeled, are two H [...] two unstained slides. H. Prostate, Right Middle [place] Biopsy: Received, properly labeled, are two H and E stained slides and two unstained slides. I. Prostate, Right Lateral [place] Biopsy: Received, properly labeled, are two H [...] unstained slides. /al 10/20/2024 11:43 AM EDT [facility] Disclaimer Unless otherwise specified, all tissue is 10% NB formalin fixed and paraffin embedded. Technical pathology services provided by [facility] at [address] [place] [address] [address], [place] [address] (CLIA #[id number]/Neda Beebe MD, Ratchet Setter) 10/20/2024 11:43 AM EDT [facility] Tissue Prostate / Unknown 10/12/20242024 [...] MD LAB PATHOLOGY ORDERABLES Final R esult [facility] ([facility]) [facility] [address] [place] [address], * XR Fingers 2+ Views Right (08/31/2024 10:39 AM EST) Anatomical Region Laterality Modality Upper Extremities, Fingers Right Compu jacob Radiography Narrative 09/01/2024 9:06 AM EST 3 views of the right thumb ray were obtained on 08/31/2024. ??There are prior images for comparison. ??There has been interval trapeziectomy. ??There has been an MP fusion and has indwelling hardware. ??On the lateral view it looks like there is bony continuity. ??It does look like 1 pin may have backed out slightly relative to an earlier film. ??Height of the metacarpal base is maintained. ??Patient does have evidence of scapholunate widening. Isidra Tapia MD IMG XR PROCEDURES Final Resul t * XR Wrist 3+ Views Right (08/31/2024 10:39 AM EST) Anatomical Region Laterality Modality Upper Extremities, Wrist Right Compute d Radiography Narrative 09/01/2024 9:07 AM EST AP, lateral, oblique of the right wrist was obtained on 08/31/2024. ??There are no obvious fractures. ??There is evidence of a trapeziectomy. ??There is an anchor in the base of the index metacarpal. ??There is evidence of an MP fusion with a K wire cerclage construct. ??The bone does appear to be bridging. ??Patient has notable osteopenia. ??He has rotation of the scaphoid and scapholunate widening. ??He has notable calcification of the radial vessel along with what looks to be the anterior and/or posterior interosseous vessel. ??On the lateral view there is increased scapholunate angle. Isidra Tapia MD IMG XR PROCEDURES Final Resul t * CA INJECTION SINGLE TENDON SHEATH OR LIGAMENT APONEUROSIS (08/31/2024 9:45 AM EST) Narrative Isidra Tapia MD - 08/31/2024 9:45 AM EST Isidra Tapia MD ? 09/01/2024 ??9:13 AM Hand / UE Inj/Asp: L long A1 for trigger finger Indications: pain Details: 27 G needle, volar approach Medications: 40 mg triamcinolone acetonide 40 mg/mL Outcome: tolerated well, no immediate complications The skin was prepped out on the volar surface of the palm overlying the A1 yanet of the long finger. ??The skin was anesthetized with 1/2 cc of 1% lidocaine with epinephrine. ??Once that had taken effect we then prepped the area again and then injected the Kenalog at the A1 yanet. ??Patient tolerated this well and a Band-Aid was applied. Informed Consent: ??Laterality: ??Right ??Relevant images/test results available and reviewed: yes ?Health status cleared: ??Yes ??Procedure/treatment, purpose, treatment alternatives, risks/potential complications and benefits explained: yes ?Patient questions answered: yes ?Patient agrees, verbalizes understanding, and wants to proceed: yes ?Consent given by: ??Patient ??Informed consent discussion completed by Physician/KENDRICK with patient: ?? Verbal ??Pre-procedure timeout performed: yes ?? Result Carley Tapia MD IN CLINIC/BEDSIDE ORDERABLES Final Result * CA INJECTION SINGLE TENDON SHEATH OR LIGAMENT APONEUROSIS (08/31/2024 9:45 AM EST) Isidra Sims MD - 08/31/2024 9:45 AM EST Isidra Tapia MD ? 09/01/2024 ??9:13 AM Hand / UE Inj/Asp: R small A1 for trigger finger Indications: pain Details: 27 G needle, volar approach Medications: 40 mg triamcinolone acetonide 40 mg/mL Outcome: tolerated well, no immediate complications Site was prepped in standard fashion using alcohol swab, sterile technique was used to perform the injection, I half cc of lidocaine 1% with epinephrine was injected first. ??I then prepped the skin again and then injected the Kenalog. ??The patient tolerated the procedure well and a band-aid dressing was applied Informed Consent: ??Laterality: ??Left ??Relevant images/test results available and reviewed: yes ?Health status cleared: ??Yes ??Procedure/treatment, purpose, treatment alternatives, risks/potential complications and benefits explained: yes ?Risk/complications/benefits details: ??Risk/complications/benefits details: ??Risks and benefits of corticosteroid injection were discussed, including risk of pain, bleeding, infection, tissue attenuation, tendon rupture, changes in skin color, and injury to surrounding structures such as arteries, veins and nerves. We also discussed the patient may develop worsening pain for a few days before having improvement in their symptoms. ??Patient questions answered: yes ?Patient agrees, verbalizes understanding, and wants to proceed: yes ?Consent given by: ??Patient ??Informed consent discussion completed by Physician/KENDRICK with patient: ?? Verbal ??Pre-procedure timeout performed: yes ?? us Isidra Tapia MD IN CLINIC/BEDSIDE ORDERABLES Final Result * Annual BMP Blood Test (03/24/2024) Annual BMP Blood Test Abstracted Historical Provider HEALTH MAINTENANCE Final Result * Lipid panel (05/01/2023) Triglycerides 0 mg/dL Comment:No interpretation, A bstracted Cholesterol 0 mg/dL Comment:No interpretation, A bstracted HDL 0 mg/dL Comment:No interpretation, A bstracted LDL Cholesterol 0 mg/dL Comment:No interpretation, A bstracted Blood Venous blood specimen / Unknown Historical Provider LAB BLOOD ORDERABLES Lesly l Result from Last 3 Months or Most Recently Relevant to Health Maintenance Insurance MEDICARE [facility] Advance Directives Documents on File Type Date Recorded Patient Stock Raiser Expl anation Health Care Decision (hx) 04/27/2020 HILDA KOEHLER DIRECTIVE Care Teams Cryptographic Machine Operator Relationship Specialty Start Date End Date Bossman Hull PA [facility] [address] [place] [id number] PCP - General Internal Medicine 06/29/24
== END 2024-10-26 10:11 | disposition home or self-care (01) ==
LOC: HO.HMCH 09:33
DX: E78.5 Hyperlipidemia, unspecified (principal); E66.01 Morbid (severe) obesity due to excess calories; Z68.43 Body mass index [BMI] 50.0-59.9, adult; D64.9 Anemia, unspecified; I10 Essential (primary) hypertension; M17.0 Bilateral primary osteoarthritis of knee

== ENCOUNTER → 2024-10-26 09:32 | Outpatient (BNVA) | payer MEDICARE, SELFPAY | DX: E78.5 Hyperlipidemia, unspecified (principal); D64.9 Anemia, unspecified; I10 Essential (primary) hypertension; M17.0 Bilateral primary osteoarthritis of knee; E66.01 Morbid (severe) obesity due to excess calories; Z68.43 Body mass index [BMI] 50.0-59.9, adult; Z71.3 Dietary counseling and surveillance | CPT/HCPCS: 99212 ==

== ENCOUNTER 2025-01-27 09:22 | Outpatient (AMB) | payer MEDICARE, SELFPAY ==
--- NOTE | 2025-01-27 09:25 | A.OFFPC_ITS ---
Vital Signs 3 01/27/25 09:26 Height 5 ft 8 in Weight 384 lb 11.306 oz BMI 58.5 BP 126/60 Blood Pressure Location Lt brachial Position Sitting Pulse 78 Pulse Source Pulse Oximeter Temp 97.6 F Temp Source Temporal Artery Scan Pulse Oximetry (%) 92 Oxygen Delivery Method Room Air Intake Visit Reasons: f/u medication Fire Management Officer Required: No Accompanied by: Self / Same As Patient Allergies amoxicillin Allergy (Intermediate, Verified 01/27/25 09:29) Diarrhea Medication List - Last Reconciled 01/27/25 by Karrie Mckinney PA-C acetaminophen ER (Tylenol 8 Hour) 650 mg PO Q8H amlodipine 10 mg PO DAILY ascorbic acid (vitamin C) mg PO aspirin 81 mg PO DAILY ferrous fumarate 324 mg PO DAILY flecainide 100 mg PO . BID furosemide 80 mg (2 x 40 mg) PO DAILY gabapentin 900 mg PO TID losartan 50 mg PO DAILY metoprolol succinate ER 25 mg PO DAILY pantoprazole 40 mg PO DAILY tramadol 50 mg PO BID vitamin B complex (B Complex-Vitamin B12 tablet) 1 tab PO DAILY Tobacco use date assessed: 01/27/25 Fall risk assessment: No Falls in past year Last assessed Fall Risk: 01/27/25 Dental Screening Dental Screen Date: 01/27/25 Did you have a dental visit in the last 12 months?: Yes Did you have a dental problem in the last 6 months where you did not have access to dental care?: No Was dental information given to patient?: Patient has dentist HPI f/u medication 2 HPI0 Details 74-year-old male with past medical histo ry of morbid obesity, hypertension, GERD, anemia, peripheral vascular disease, obstructive sleep apnea, prostate cancer, hyperlipidemia and depression last seen 09/2024 coming in for follow up. In review we will send when patient was seen by [facility] for arthritis of the right shoulder and arthritis of both knees given injections in sent to physical therapy.?He was seen by Urology 09/2024 given gentamicin and advised to follow up. ? Presenting with management of osteoarthritis, shoulder pain, and evaluation of a skin infection on the leg. The patient reports severe knee pain with temporary relief following injections, but symptoms have returned. There is a consideration for knee replacement surgery which is postponed due to patient weight. The patient received injections in the shoulder, with plans for ongoing therapy. The pain persists despite previous interventions. The patient has a long-standing history of prostate cancer, with recent PSA levels showing an increase. Follow-up is scheduled for March with additional blood tests planned. The patient has a history of anemia, with previous iron infusion treatment. Hemoglobin levels are currently stable, and regular blood tests are scheduled every three months. The patient developed a skin infection following an incident where patient tripped and bumped his leg on his wheelchair. The area is red and draining, and antibiotics have been prescribed. [facility] Medical History Fractured talus Bilateral anterior knee pain Bovine stomatitis Kidney stones Surgical History History of carpal tunnel surgery S/P foot surgery, right H/O ankle fusion S/P tonsillectomy H/O knee surgery Hx of appendectomy H/O thumb surgery H/O wrist surgery S/P TAVR (transcatheter aortic valve replacement) Family History Father Cancer Social History Housing: House Alcohol intake: never Patient Tobacco Use Status: Former Tobacco user Tobacco use type: Cigarette e-Cigarette/Vaping Use: Never Used Second Hand Smoke Exposure: Yes service: No Current occupational status: disabled Current occupation: rt handed Cognitive needs: Yes (Walker, wheelchair, cane, crowches ) Hearing needs: No Vision needs: No Questionnaire Thrive Questionnaire Date Thrive assessed: 01/27/25 I am a: Patient What is your living situation today?: I have a steady place to live Within the past 12 months, did the food you bought not last and you didn't have the money to get more?: Often true Within the past 12 months, did you worry whether your food would run out before you got money to buy more?: Never true Do you have trouble paying for medicines?: No Do you have trouble getting transportation to medical appointments?: Yes Do you have trouble paying your heating and electricity bill?: No Do you have trouble taking care of your child, family member or friend?: No Do you have trouble with day-to-day activities such as bathing, preparing meals, shopping, managing finances, etc.?: No Are you currently unemployed and looking for a job?: No Are you interested in more education?: No Please select the resources that you would like help with: None Currently or been in a relationship where the following occur: No concerns reported THRIVE Score: 2 LINETTE-7 AMB Questionnaire LINETTE-7 Date LINETTE - 7 assessed: 01/27/25 Source: Developed by Drs. Brian Sutherland, Yazmin Sheehan, Dash Prince and colleagues, with an educational gerald from [employer]. Review of Systems Const Denies body aches, Denies chills, Denies fever(s), Denies headache(s) and Denies poor appetite Eyes Reports no additional complaints ENT Denies dizziness and Denies headache(s) Card Denies chest pain, Denies lightheadedness and Denies dyspnea Resp Denies dyspnea GI Denies diarrhea, Denies nausea and Denies vomiting Reports no additional complaints Musc Reports no additional complaints and Denies abnormal gait Skin/Breast Reports system reviewed and no additional complaints, except as documented Neuro Denies abnormal gait, Denies dizziness and Denies headache(s) Psych Reports no additional complaints Physical exam (Primary Care) Vital Signs: Last Vital Signs Temp 97.6 F 01/27/25 09:26 Pulse 78 01/27/25 09:26 BP 126/60 01/27/25 09:26 Pulse Ox 92 01/27/25 09:26 Oxygen Delivery Method Room Air 01/27/25 09:26 BMI result Body Mass Index 58.5 Tobacco/Smoking Status: Tobacco use Status Tobacco use date assessed 01/27/25 01/27/25 09:29 Patient Tobacco Use Status Former Tobacco user 01/27/25 09:29 Tobacco use type Cigarette 01/27/25 09:29 e-Cigarette/Vaping Use Never Used 01/27/25 09:29 Thrive Assessment: Date of Thrive Assessment Date Thrive assessed 01/27/25 01/27/25 09:29 Currently or been in a relationship where the following occur: No concerns reported Const General: cooperative, healthy appearing, comfortable and no acute distress Orientation/consciousness: patient oriented x3 HENMT Head: Yes normocephalic Ears: hearing grossly normal bilaterally General nose exam: Normal external nose present Eyes General: appearance normal, both eyes and all related structures Conjunctivae: conjunctivae normal Neck Neck: Yes full ROM and Yes no lymphadenopathy Resp Effort & Inspection: normal respiratory effort Auscultation: clear to auscultation bilaterally, no crackles, no rales, no rhonchi and no wheezes Cardio Rate: regular rate Rhythm: regular rhythm Skin General skin exam: no rashes or lesions noted Full body images: 2 1. erythema and warmth and small area of blistered skin with mild serous drainage Neuro General: patient oriented x3 Gait exam (Neuro): Normal gait present Extrem Other: No pain to palpation of bilateral lower extremities General: Yes normal to inspection, Yes full ROM and No edema Psych Affect: normal affect Attitude: cooperative Insight: Good insight present (Psych) Judgement: Good judgement present (Psych) Coding Level of Care Code Est Pt Level 4 (94810) Diagnoses Cellulitis L03.90 Mixed hyperlipidemia E78.2 Hyperlipidemia type: mixed hyperlipidemia Iron deficiency anemia, unspecified iron deficiency anemia type D50.9 Anemia type: iron deficiency Iron deficiency anemia type: unspecified iron deficiency Primary hypertension I10 Hypertension type: primary hypertension Morbid obesity with BMI of 50.0-59.9, adult E66.01; Z68.43 Osteoarthritis of knees, bilateral M17.0 Prostate cancer C61 Right shoulder pain M25.511 Assessment & Plan Assessment & Plan (1) Cellulitis: Comment: RLE Code(s): L03.90 - Cellulitis, unspecified Category: Medical Plan: Patient having cellulitis of the right lower extremity. Denies any pain to palpation but does have significant erythema and warmth over the anterior aspect of the right lower extremity. There is also a small area of serous drainage from a ruptured blister. Concern for cellulitis given the presentation plan to treat with doxycycline twice daily for 7 days as patient does have an allergy to penicillins. Advised patient to take this with food and avoid direct sunlight while on this medication. I did also advise the patient on proper wound care. Advised to keep the area clean and dry as much as possible in the allow the wound to air out while at home. While wearing compression stockings patient should keep this area covered to avoid more trauma to the area. Low suspicion for DVT at this time however I did review red flag symptoms for cellulitis and DVT patient was given strict return clinic protocols. (2) Hyperlipidemia: Code(s): E78.5 - Hyperlipidemia, unspecified Category: Medical Qualifiers: Hyperlipidemia type: mixed hyperlipidemia Qualified Code(s): E78.2 - Mixed hyperlipidemia Plan: Avoid foods that are high in cholesterol such as red meat, fried foods, eggs and baked goods. Triglyceride goal of less than 150 and LDL goal of less than 100. Reminded about blood work and updated the orders. (3) Anemia: Code(s): D64.9 - Anemia, unspecified Category: Medical Qualifiers: Anemia type: iron deficiency Iron deficiency anemia type: unspecified iron deficiency Qualified Code(s): D50.9 - Iron deficiency anemia, unspecified Plan: Patient states he recently had blood work done and his hemoglobin had returned to a normal level. He has been following with [facility] and has appt next year with them but does continue to follow with routine blood work. (4) Hypertension: Code(s): I10 - Essential (primary) hypertension Category: Medical Qualifiers: Hypertension type: primary hypertension Qualified Code(s): I10 - Essential (primary) hypertension Plan: Continue on current blood pressure medication. Avoid salt intake and encourage healthy diet and regular exercise. Blood pressures at home have been within normal range (5) Morbid obesity with BMI of 50.0-59.9, adult: Code(s): E66.01 - Morbid (severe) obesity due to excess calories; Z68.43 - Body mass index [BMI] 50.0-59.9, adult Category: Medical Plan: Healthy diet and regular exercise is encouraged. (6) Osteoarthritis of knees, bilateral: Code(s): M17.0 - Bilateral primary osteoarthritis of knee Category: Medical Plan: Patient following with Dr. Tapia through [facility] and recently had bilateral knee. He is on chronic pain medication with tramadol 50 mg b.i.d. (7) Prostate cancer: Code(s): C61 - Malignant neoplasm of prostate Category: Medical Plan: Patient is currently following with Urology and had a recent increase in his PSA. He is having additional blood work and appointment in March to follow up on this. (8) Right shoulder pain: Code(s): M25.511 - Pain in right shoulder Category: Medical Plan: Patient is scheduled to undergo physical therapy for the right shoulder soon. Plan The patient will continue with physical therapy for shoulder pain management, and further evaluation will be conducted if symptoms persist. Knee pain due to osteoarthritis will be managed with ongoing monitoring, and a knee replacement is being considered as a future option. For the skin infection on the leg, antibiotics have been prescribed, and the patient is advised to keep the area clean and exposed to air when possible to promote healing. Regular follow-up for prostate cancer is scheduled, with PSA testing planned for March to monitor any progression. Anemia will be monitored with blood tests every three months, and any necessary interventions will be implemented based on the results. The patient is advised to take antibiotics with food to prevent stomach upset and to use sunscreen when exposed to sunlight due to increased sensitivity from the medication. This note was constructed using voice recognition software. While every effort has been made to ensure accuracy and natural resource economist, still areas may have been included sometimes these areas may affect the content or meeting of the given symptoms. Total time spent caring for the patient today was 30 minutes. This includes time spent before the visit reviewing the chart, time spent during the visit, and time spent after the visit and documentation. Patient was informed and verbally consented to the use of an ambient scribe for clinic note documentation during this visit. Orders: Orders 2 Lipid Panel 01/27/25 E78.00 - Pure hypercholesterolemia, unspecified Medications: New 2 doxycycline hyclate 100 mg PO BID 14 tabs 0RF 7 days
[2025-01-27 09:26] VITALS: BP 126/60; PULSE 78; TEMP 36.4; O2SAT 92; BMI 58.5
--- OUTSIDE RECORDS SUMMARY | 2025-01-27 09:52 | XMS_ITS | Encounter Summary ---
Author Organization [facility] Address [address] [place] [address] Care Team Providers Care Print Line Operator Name Role Phone Karrie Mckinney Primary Care Provider [phone] Encounter Details Date Type Department Care Team (Late Contact Info) Description 10/14/[address] [facility] - Main Lab [address] [facility] [place] [address] Dexter Rodas MD [address] [facility] [address] [place] [address] Elevated prostate specific antigen (PSA) Social History [...] Encounters Date Type Department Care Team (Late Contact Info) Description 01/28/2025 11:30 AM EDT Evaluation [facility] [address] [facility] [address] [place] [address] Marciano Smalls, PT [address] [place], [place] [id number] documented as of this encounter Goals Goal [...] (10/12/2024) Final Diagnosis A. Prostate, Left [place] Biopsy: - Benign prostatic tissue. B. Prostate, Left Lateral Seale Biopsy: - Prostatic acinar adenocarcinoma (conventional type), [...] an invasive adenocarcinoma. PIN4 immunostain performed at [facility] lab, [address] [place] [address] [address], [place] [address], CLIA #[id number]. H. Prostate, Right [place] Biopsy: - Benign prostatic tissue. I. Prostate, Right Lateral Se[place] Biopsy: - Prostatic acinar adenocarcinoma (conventional type), grade group 2 (Freeport score 3+4=7). - Percentage pattern 4: 10%. [...] acinar adenocarcinoma (conventional type), grade group 2 (Freeport score 3+4=7). - Percentage pattern 4: 5%. - Tumor continuously involves 38% of overall tissue, present in 3 of 3 tissue cores. [facility] Clinical Information Elevated PSA R97.20 PSA: 4.1 (09/07/24) [id number] 10/20/2024 11:43 AM [facility] Gross Description A. Prostate, Left [place] Biopsy: Received, properly labeled, are two H and E stained slides and two unstained slides. B. Prostate, Left Lateral Se[place] Biopsy: Received, properly labeled, are two H [...] two unstained slides. H. Prostate, Right [place] Biopsy: Received, properly labeled, are two H and E stained slides and two unstained slides. I. Prostate, Right Lateral Se[place] Biopsy: Received, properly labeled, are two H [...] unstained slides. /al 10/20/2024 11:43 AM EDT [facility] Disclaimer Unless otherwise specified, all tissue is 10% NB formalin fixed and paraffin embedded. Technical pathology services provided by [facility] at [address] [place] [address] [address], [place] [address] (CLIA #[id number]/Neda Beebe MD, Packaging Materials Inspector) 10/20/2024 11:43 AM EDT [facility] Tissue Prostate / Unknown 10/12/20242024 [...] MD LAB PATHOLOGY ORDERABLES Final R esult [facility] [address] [place] [address], documented in this encounter Visit Diagnoses Diagnosis Elevated prostate specific antigen (PSA) documented in this encounter Care Teams Print Line Operator Relationship Specialty Start Date End Date Karrie Mckinney PA [address] [place] [address], [address] [place] [address] PCP - General 12/28/24 documented as of this encounter
--- OUTSIDE RECORDS SUMMARY | 2025-01-27 09:53 | XMS_ITS | Clinical Summary ---
Author Organization [facility] Address [address] [place] [address] Care Team Providers Care Marketing Account Manager Name Role Phone Destiny Ortega PSYCHIATRIC CLINICIAN Primary Care Provider [phone] Allergies Active Allergy Reactions Criticality Noted Date [...] or Tdap) 10/24/2023 10/23/2013 Influenza Vaccine (#1) 2025 2, 04/27/2021, 05/02/2019, Additional history exists RSV [...] age to complete this topic Care Teams Marketing Account Manager Relationship Specialty Start Date End Date Destiny Ortega NP [address] [facility] [place] [address] PCP - General Family Medicine 08/21/22
--- OUTSIDE RECORDS SUMMARY | 2025-01-27 09:53 | XMS_ITS | Encounter Summary ---
Author Organization [facility] Address [address] [place] [phone] Phone Care Team Providers Care Rail Manager Name Role Phone Claude Capps MD Unavailable [phone] Unruly Jolley MD Unavailable Nicolas Andrea DPM Unavailable Pcp, Unknown Primary Care Provider Unavailabl e Reason for Visit * Reason Comments Medication Refill Encounter Details Date Type Department Care Team (Late st Contact Info) Description 01/08/2025 Refill [facility] [place] [facility] [address] [place] [address] Bobby Briseno MD [address] [place] [address] [email or web address] Medication Refill Social History Tobacco Use Types Packs/Day Years Used Date Smoking Tobacco: Former Cigarettes 1 35.3 0 08/29/1964 - 12/02/1999 Smokeless Tobacco: Never Alcohol Use Standard Drinks/Week Comments Not Currently 0 (1 standard drink = 0.6 oz pur e alcohol) quit drinking 2011 Education Answer Date Recorded Are you interested in more education? Not on tony e 10/26/2022 Are you concerned about learning? Not on file 10/26/2022 No 10/26/2022 No 10/26/2022 Digital Access Answer Date Recorded No 11/20/2022 No 11/20/2022 Reliable internet access at home? Not on file 11/20/2022 Device with a working camera? Not on file Intimate Partner Violence Answer Date R ecorded Denied Basic Needs Not on file 05/01/2023 In the past 12 months have y ou been in a relationship with a person who hurts, threatens, or tries to control you? No 05/01/2023 Worried food would run out Not on file 05/01 In the past 12 months have y ou been in a relationship with a person who hurts, threatens, or tries to control you? No 05/01/2023 Sex and Gender Information Value Date Recorded Sex Assigned at Male 07/08/2017 9:38 AM EST Legal Sex Male 10:01 PM EDT Gender Identity Male 07/08/2017 9:38 AM EST Sexual Orientation Straight 07/08/2017 9: 38 AM EST documented as of this encounter Plan of Treatment Not on file documented as of this encounter Visit Diagnoses Diagnosis Essential hypertension Unspecified essential hypertension documented in this encounter Additional Health Concerns Assessment Noted Time PHQ-9 Depression Total Score: 7 04/26/20 22 10:46 AM EDT PHQ-2 Depression Total Score: 0 12/09/19 24 1:08 PM EDT documented as of this encounter Care Teams Rail Manager Relationship Specialty Start Date End Date Pcp, Unknown PCP - General 11/16/24 Claude Capps MD [address] [place] [id number] Pulmonary Disease 04/12/20 Unruly Jolley MD [address] [place] [phone] Urology 04/12/20 Nicolas Andrea DPM [address] [place] [id number] Podiatry 04/12/20 documented as of this encounter Additional Source Comments The information contained in this document represents components of the legal health record. It is not the complete legal health record.[facility]
== END 2025-01-27 10:12 | disposition home or self-care (01) ==
LOC: HO.HMCH 09:23
DX: E78.2 Mixed hyperlipidemia (principal); E66.01 Morbid (severe) obesity due to excess calories; Z68.43 Body mass index [BMI] 50.0-59.9, adult; C61 Malignant neoplasm of prostate; L03.90 Cellulitis, unspecified; D50.9 Iron deficiency anemia, unspecified; I10 Essential (primary) hypertension; M17.0 Bilateral primary osteoarthritis of knee; M25.511 Pain in right shoulder

== ENCOUNTER → 2025-01-27 09:22 | Outpatient (BNVA) | payer MEDICARE, SELFPAY | DX: L03.90 Cellulitis, unspecified (principal); E78.2 Mixed hyperlipidemia; D50.9 Iron deficiency anemia, unspecified; I10 Essential (primary) hypertension; M17.0 Bilateral primary osteoarthritis of knee; E66.01 Morbid (severe) obesity due to excess calories; Z68.43 Body mass index [BMI] 50.0-59.9, adult; C61 Malignant neoplasm of prostate; M25.511 Pain in right shoulder; Z71.3 Dietary counseling and surveillance | CPT/HCPCS: 99212 ==

== ENCOUNTER 2025-06-28 13:15 | Outpatient (REF) | payer MEDICARE, SELFPAY ==
--- OUTSIDE RECORDS SUMMARY | 2025-06-28 16:33 | XMS_ITS | Encounter Summary ---
Author Organization [facility] Address [address] [place] [address] Care Team Providers Care Cantilever Crane Operator Name Role Phone Karrie Mckinney Primary Care Provider [phone] Encounter Details Date Type Department Care Team (Late st Contact Info) Description 04/09/2025 Lab Requisition [facility] - Main Lab [address] [facility] [place] [address] Kami Valles MD [address] [place] [address] Encounter for other general examination Social History Tobacco Use Types Packs/Day Years Used Date Smoking Tobacco: Never Smokeless Tobacco: Never Sex and Gender Information Value Date Recorded Sex Assigned at Male 02/05/2025 9:35 AM EDT Legal Sex Male 3:52 PM EST Gender Identity Male 02/05/2025 9:35 AM EDT Sexual Orientation Straight 02/05/2025 9: 35 AM EDT documented as of this encounter Functional Status * Are you deaf or do you have serious difficulty hearing? Answer Date of Assessment Author No 04/06/2025 5:19 PM EDT Deanna Marrero RN * Are you blind or do you have serious difficulty seeing, even when wearing glasses? Answer Date of Assessment Author No 04/06/2025 5:19 PM EDT Deanna Marrero RN * Do you have serious difficulty walking or climbing stairs? Answer Date of Assessment Author Yes 04/06/2025 5:19 PM EDT Deanna Marrero RN * Do you have serious difficulty dressing or bathing? Answer Date of Assessment Author No 04/06/2025 5:19 PM EDT Deanna Marrero RN * Because of a physical, mental, or emotional condition, do you have serious difficulty doing errandsalone such as visiting the doctor? Answer Date of Assessment Author No 04/06/2025 5:19 PM EDT Deanna Marrero RN documented as of this encounter Mental Status * Because of a physical, mental, or emotional condition, do you have serious difficulty concentrating, remembering, or making decisions? (5 years old or older) Answer Entry Date Author No 04/06/2025 5:19 PM EDT Deanna Marrero RN documented in this encounter Plan of Treatment Not on file documented as of this encounter Goals Goal Patient Goal Type Associated Problems Recent Progress Patient-Stated? Author feel better General Yes Marciano Smalls, PT PT STG x 8 visits from [facility] 01/28/2025 General No Marciano Smalls, PT Note: [x] = goal MET [] = goal NOT MET [] Pt will report an average shoulder pain level decrease of 2/10, [] Pt will increase right shoulder abd active ROM to 130 degrees, [] Pt will increase right shoulder flexion active ROM to 120 degrees, [] Pt will improve right shoulder ER strength to 4-/5 PT LTG x 15 visits from [facility] 01/28/2025 General No Marciano Smalls, PT Note: [x] = goal MET [] = goal NOT MET [] Pt will be able to wash reach back of head to wash hair prn, [] Pt will be not be limited in applying underarm deodorant to opposite side using involved extremity , [] Pt will be able to use R UE to clean/scrub counter [] Pt will be able to steer/drive with right UE, [] Pt will be able to open/close car door with involved UE prn documented as of this encounter Procedures Procedure Name Priority Date/Time Associated Diagnosis Comments CULTURE BLOOD STAT 04/09/2025 11:53 AM EDT Encounter for other general examination CULTURE BLOOD STAT 04/09/2025 11:46 AM EDT Encounter for other general examination documented in this encounter Results * Culture blood (04/09/2025 11:53 AM EDT) Culture, Blood No growth at 5 days 04/14/2025 1:01 PM EDT [facility] Blood 04/09/2025 11:5 3 AM EDT 04/09/2025 12:45 PM EDT us Kami Valles MD LAB MICROBIOLOGY - GENERAL ORDE RABLES Final Result [facility] [address] [place] [address], [place] [phone] * Culture blood (04/09/2025 11:46 AM EDT) Culture, Blood No growth at 5 days 04/14/2025 1:01 PM EDT [facility] Blood 04/09/2025 11:4 6 AM EDT 04/09/2025 12:45 PM EDT us Kami Valles MD LAB MICROBIOLOGY - GENERAL ORDE RABLES Final Result [facility] [address] [place] [address], [place] [phone] documented in this encounter Visit Diagnoses Diagnosis Encounter for other general examination documented in this encounter Care Teams Cantilever Crane Operator Relationship Specialty Start Date End Date Karrie Mckinney PA [address] [place] [address], [address] [place] [address] PCP - General 12/28/24 documented as of this encounter
--- OUTSIDE RECORDS SUMMARY | 2025-06-28 16:33 | XMS_ITS | Encounter Summary ---
Author Organization [facility] Address [address] [place] [address] Care Team Providers Care Clothing Patternmaker Name Role Phone Karrie Mckinney Primary Care Provider Encounter Details Date Type Department Care Team (Late st Contact Info) Description 04/11/2025 Lab Requisition [facility] - Main Lab 299 [facility] [place] [address] Kami Valles MD [address] [place] [address] Encounter for other general examination Social History [...] Author No 04/06/2025 5:19 PM EDT Deanna Mrarero RN * Are you blind or do [...] PT PT STG x 8 visits from [facility] 01/28/2025 General No Marciano Smalls, PT Note: [...] 4-/5 PT LTG x 15 visits from [facility] 01/28/2025 General No Marciano Smalls, PT Note: [...] Procedure Name Priority Date/Time Associated Diagnosis Comments CBC WITH AUTO DIFFERENTIAL Routine 04/11/2025 6:24 AM EDT Encounter for other general examination CBC AND DIFFERENTIAL Routine 04/11/2025 6:24 AM EDT Encounter for other general examination MAGNESIUM Routine 04/11/2025 6:24 AM EDT Encounter for other general examination COMPREHENSIVE METABOLIC PANEL Routine 04/11/2025 6:24 AM EDT Encounter for other general examination documented in this encounter Results * (ABNORMAL) CBC auto differential (04/11/2025 6:24 AM EDT) [facility] WBC 7.3 4.8 - 10.8 K/mcL LAB HEMETOLOGY METHOD 04/11/2025 9:44 AM [facility] RBC 4.00(L) 4.50 - 5.50 M/mcL LAB HEMETOLOGY METHOD 04/11/2025 9:44 AM [facility] Hemoglobin 13.0(L) 13.5 - 17.5 g/dL LAB HEMETOLOGY METHOD 04/11/2025 9:44 AM [facility] Hematocrit 41.8(L) 42.0 - 54.0 % LAB HEMETOLOGY METHOD 04/11/2025 9:44 AM [facility] MCV 103.7(H) 79.0 - 98.0 FL LAB HEMETOLOGY METHOD 04/11/2025 9:44 AM [facility] MCH 32.3(H) 27.0 - 32.0 pcg LAB HEMETOLOGY METHOD 04/11/2025 9:44 AM [facility] MCHC 31.1(L) 32.0 - 37.0 g/dL LAB HEMETOLOGY METHOD 04/11/2025 9:44 AM [facility] RDW 12.9 11.0 - 15.0 % LAB HEMETOLOGY METHOD 04/11/2025 9:44 AM [facility] Platelets 184 130 - 400 K/mcL LAB HEMETOLOGY METHOD 04/11/2025 9:44 AM [facility] MPV 10.3 7.0 - 11.0 FL LAB HEMETOLOGY METHOD 04/11/2025 9:44 AM [facility] NRBC 0.0 <1.0 % LAB HEMETOLOGY METHOD 04/11/2025 9:44 AM [facility] NRBC Absolute 0.00 <0.10 K/[facility] LAB HEMETOLOGY METHOD 04/11/2025 9:44 AM [facility] Neutrophils Relative 65.0 % LAB HEMETOLOGY METHOD 04/11/2025 9:44 AM [facility] Lymphocytes Relative 16.1 % LAB HEMETOLOGY METHOD 04/11/2025 9:44 AM [facility] Monocytes Relative 15.1 % LAB HEMETOLOGY METHOD 04/11/2025 9:44 AM [facility] Eosinophils Relative 3.0 % LAB HEMETOLOGY METHOD 04/11/2025 9:44 AM [facility] Basophils Relative 0.4 % LAB HEMETOLOGY METHOD 04/11/2025 9:44 AM [facility] Immature Granulocytes Relative 0.4 % LAB HEMETOLOGY METHOD 04/11/2025 9:44 AM [facility] Neutrophils Absolute 4.72 1.50 - 7.00 K/mcL LAB HEMETOLOGY METHOD 04/11/2025 9:44 AM [facility] Lymphocytes Absolute 1.17 1.00 - 5.00 K/mcL LAB HEMETOLOGY METHOD 04/11/2025 9:44 AM [facility] Monocytes Absolute 1.10(H) 0.20 - 1.00 K/mcL LAB HEMETOLOGY METHOD 04/11/2025 9:44 AM [facility] Eosinophils Absolute 0.22 0.00 - 0.50 K/mcL LAB HEMETOLOGY METHOD 04/11/2025 9:44 AM T [facility] Basophils Absolute 0.03 0.00 - 0.20 K/[facility] LAB HEMETOLOGY METHOD 04/11/2025 9:44 AM EDT [facility] Immature Granulocytes Absolute 0.03 0.00 - 0.03 K/[facility] LAB HEMETOLOGY METHOD 04/11/2025 9:44 AM EDT [facility] Blood Venous blood specimen / Unknown Venipuncture / Unknown 04/11/2025 6:24 AM EDT 04/11/2025 8:38 AM EDT us Kami Valles MD LAB BLOOD ORDERABLES Final Resu lt [facility] [address] [place] [address], * (ABNORMAL) Comprehensive metabolic panel (04/11/2025 6:24 AM EDT) Sodium 141 133 - 145 mmol/L LAB CHEMISTRY METHOD 04/11/2025 10:00 AM [facility] Potassium 4.0 3.5 - 5.5 mmol/L LAB CHEMISTRY METHOD 04/11/2025 10:00 AM [facility] Chloride 99 96 - 110 mmol/L LAB CHEMISTRY METHOD 04/11/2025 10:00 AM [facility] CO2 37(H) 21 - 32 mmol/L LAB CHEMISTRY METHOD 04/11/2025 10:00 AM [facility] Anion Gap 5 3 - 11 LAB CHEMISTRY METHOD 04/11/2025 10:00 AM [facility] Glucose 98 70 - 100 mg/dL LAB CHEMISTRY METHOD 04/11/2025 10:00 AM [facility] BUN 24 5 - 25 mg/dL LAB CHEMISTRY METHOD 04/11/2025 10:00 AM [facility] Creatinine 1.40(H) 0.70 - 1.30 mg/dL LAB CHEMISTRY METHOD 04/11/2025 10:00 AM [facility] eGFR 53(L) >=60 mL/min/1. 73m2 LAB CHEMISTRY METHOD 04/11/2025 10:00 AM [facility] Comment:Calculation based on the Chronic Kidney Disease Epidemiology Collaboration (CKD-EPI) equation refit without adjustment for race. BUN/Creatinine Ratio 17.1 LAB CHEMISTRY METHOD 04/11/2025 10:00 AM [facility] Calcium 8.8 8.5 - 10.5 mg/dL LAB CHEMISTRY METHOD 04/11/2025 10:00 AM [facility] AST (SGOT) 24 10 - 42 unit/L LAB CHEMISTRY METHOD 04/11/2025 10:00 AM [facility] ALT (SGPT) 18 10 - 60 unit/L LAB CHEMISTRY METHOD 04/11/2025 10:00 AM [facility] Alkaline Phosphatase 49 42 - 121 unit/L LAB CHEMISTRY METHOD 04/11/2025 10:00 AM [facility] Total Protein 6.1 6.0 - 8.0 g/dL LAB CHEMISTRY METHOD 04/11/2025 10:00 AM [facility] Albumin 3.3 3.2 - 5.0 g/dL LAB CHEMISTRY METHOD 04/11/2025 10:00 AM [facility] Total Bilirubin 0.8 0.0 - 1.4 mg/dL LAB CHEMISTRY METHOD 04/11/2025 10:00 AM [facility] Blood Venous blood specimen / Unknown Venipuncture / Unknown 04/11/2025 6:24 AM EDT 04/11/2025 8:38 AM EDT us Kami Valles MD LAB BLOOD ORDERABLES Final Resu lt Performing Organization Address [facility]/ZIP Co de Phone Number [facility] [address] [place] [address], * Magnesium (04/11/2025 6:24 AM EDT) Magnesium 2.1 1.9 - 2.6 mg/dL LAB CHEMISTRY METHOD 04/11/2025 9:53 AM EDT [facility] Blood Venous blood specimen / Unknown Venipuncture / Unknown 04/11/2025 6:24 AM EDT 04/11/2025 8:38 AM EDT Kami Valles MD LAB BLOOD ORDERABLES Final Resu lt Performing Organization Address [facility] Co de Phone Number [facility] [address] [place] [address], documented in this encounter Visit Diagnoses Diagnosis Encounter for other general examination documented in this encounter Care Teams Clothing Patternmaker Relationship Specialty Start Date End Date Karrie Mckinney PA [address] [place] [address], [address] [place] [address] PCP - General 12/28/24 documented as of this encounter
--- OUTSIDE RECORDS SUMMARY | 2025-06-28 16:33 | XMS_ITS | Encounter Summary ---
Author Organization [facility] Address [address] [place] [address] Care Team Providers Care Wire Stripper Name Role Phone Karrie Mckinney Primary Care Provider [phone] Encounter Details Date Type Department Care Team (Late st Contact Info) Description 04/10/2025 Lab Requisition [facility] - Main Lab 299 [facility] [place] [address] Shelby Yusuf PA [address] [place] [address] Encounter for other general examination Social History [...] PT PT STG x 8 visits from [facility] 01/28/2025 General No Marciano Smalls, PT Note: [...] 4-/5 PT LTG x 15 visits from [facility] 01/28/2025 General No Marciano Smalls, PT Note: [...] Procedure Name Priority Date/Time Associated Diagnosis Comments URINALYSIS WITH REFLEX MICROSCOPIC AND CULTURE Routine 04/10/2025 3:35 PM EDT Encounter for other general examination KIRKPATRICK URINE CULTURE TUBE Routine 04/10/2025 3:35 PM EDT Encounter for other general examination URINALYSIS WITH REFLEX MICROSCOPIC AND CULTURE Routine 04/10/2025 3:35 PM EDT Encounter for other general examination CULTURE URINE Routine 04/10/2025 3:35 PM EDT Encounter for other general examination documented in this encounter Results * Culture urine (04/10/2025 3:35 PM EDT) [facility] Culture, Urine No growth 04/12/2025 10:42 AM EDT [facility] Urine Urine specimen obtained by clean catch procedure / Unknown 04/10/2025 3:35 PM EDT 04/11/2025 10:10 AM EDT Shelby GUILLEN LAB MICROBIOLOGY - GENERAL OR DERABLES Final Result [facility] [address] [place] [address], [place] [phone] * (ABNORMAL) Urinalysis with reflex microscopic and culture (04/10/2025 3:35 PM EDT) [facility] Specific [place] Urine 1.017 1.003 - 1.030 LAB URINALYSIS - AUTOMATED METHOD 04/11/2025 10:10 AM T [facility] pH, Urine 5.5 5.0 - 8.0 pH LAB URINALYSIS - AUTOMATED METHOD 04/11/2025 10:10 AM T [facility] Leukocytes, Urine Trace(A) Negative LAB URINALYSIS - AUTOMATED METHOD 04/11/2025 10:10 AM T [facility] Nitrite, Urine Negative Negative LAB URINALYSIS - AUTOMATED METHOD 04/11/2025 10:10 AM [facility] Protein, Urine Trace <=Trace mg/dL LAB URINALYSIS - AUTOMATED METHOD 04/11/2025 10:10 AM [facility] Glucose, Urine Negative Negative mg/dL LAB URINALYSIS - AUTOMATED METHOD 04/11/2025 10:10 AM [facility] Ketones, Urine Trace(A) Negative mg/dL LAB URINALYSIS - AUTOMATED METHOD 04/11/2025 10:10 AM [facility] Urobilinogen , Urine 1.0 0.2 - 1.0 mg/dL LAB URINALYSIS - AUTOMATED METHOD 04/11/2025 10:10 AM [facility] Bilirubin, Urine Negative Negative LAB URINALYSIS - AUTOMATED METHOD 04/11/2025 10:10 AM [facility] Blood, Urine Negative Negative LAB URINALYSIS - AUTOMATED METHOD 04/11/2025 10:10 AM [facility] RBC, Urine 0.0 0 - 4 /HPF LAB URINALYSIS - AUTOMATED METHOD 04/11/2025 10:10 AM [facility] WBC, Urine 2.6 0 - 4 /HPF LAB URINALYSIS - AUTOMATED METHOD 04/11/2025 10:10 AM [facility] Squamous Epithelial, Urine 30 0 - 60 /LPF LAB URINALYSIS - AUTOMATED METHOD 04/11/2025 10:10 AM [facility] Crystals, Urine Moderate Calcium Oxalate crystals. /LPF LAB URINALYSIS - AUTOMATED METHOD 04/11/2025 10:10 AM [facility] Bacteria, Urine Negative Negative /HPF LAB URINALYSIS - AUTOMATED METHOD 04/11/2025 10:10 AM [facility] Hyaline Casts, Urine 18.4(H) 0 - 3 /LPF LAB URINALYSIS - AUTOMATED METHOD 04/11/2025 10:10 AM [facility] Other Casts, Urine Rare Fine Granular casts. /LPF LAB URINALYSIS - AUTOMATED METHOD 04/11/2025 10:10 AM EDT [facility] Mucus, Urine Moderate None /HPF LAB URINALYSIS - AUTOMATED METHOD 04/11/2025 10:10 AM EDT [facility] Urine Urine specimen obtained by clean catch procedure / Unknown 04/10/2025 3:35 PM EDT 04/11/2025 9:04 AM EDT Shelby GUILLEN LAB URINE ORDERABLES Final Re sult Performing Organization Address City/[facility]/ZIP Co de Phone Number [facility] [address] [place] [address], [place] [phone] * Kirkpatrick urine culture tube (04/10/2025 3:35 PM EDT) Extra Tube Hold for add-ons. 04/11/2025 11:01 AM EDT [facility] Comment:Auto resulted. Urine Urine specimen obtained by clean catch procedure / Unknown 04/10/2025 3:35 PM EDT 04/11/2025 9:04 AM EDT Shelby GUILLEN LAB URINE ORDERABLES Final Re sult Performing Organization Address [facility]/ZIP Co de Phone Number [facility] [address] [place] [address], [place] [phone] documented in this encounter Visit Diagnoses Diagnosis Encounter for other general examination documented in this encounter Care Teams Wire Stripper Relationship Specialty Start Date End Date Karrie Mckinney PA [address] [place] [address], [address] [place] [address] PCP - General 12/28/24 documented as of this encounter
--- OUTSIDE RECORDS SUMMARY | 2025-06-28 16:34 | XMS_ITS | Encounter Summary ---
Author Organization [facility] Address [address] [place] [phone] Phone Care Team Providers Care Alteration Workroom Supervisor Name Role Phone Destiny Ortega NP Primary Care Provider Juliana Huertas MD Unavailable Claude Capps MD Unavailable [phone] Unruly Jolley MD Unavailable Nicolas Andrea DPM Unavailable Bobby Briseno MD Unavailable Vero Hogue TUFTER OPERATOR Primary Care Provider Noble Mcdonnell MD Unavailable [phone] Referring, Not Required Primary Care Provider Un available Bossman Hull PA-C Primary Care Provider Pcp, Unknown Primary Care Provider Unavailabl e Encounter Details Date Type Department Care Team (Late st Contact Info) Description 12/03/2019 Ancillary Orders [facility] [address] [place] [address] [place] [address] Song Keenan MD [id number] [place] [address] [email or web address] Palpitations Social History Tobacco Use Types Packs/Day Years Used Date Smoking Tobacco: Former Cigarettes 1 35.3 0 08/29/1964 - 12/02/1999 Smokeless Tobacco: Never Alcohol Use Standard Drinks/Week Comments Yes 0 (1 standard drink = 0.6 oz pur e alcohol) rare beer Sex and Gender Information Value Date Recorded Sex Assigned at Male 07/08/2017 9:38 AM EST Legal Sex Male 10:01 PM EDT Gender Identity Male 07/08/2017 9:38 AM EST Sexual Orientation Straight 07/08/2017 9: 38 AM EST documented as of this encounter Plan of Treatment Not on file documented as of this encounter Results * Holter Monitor 24 Hours (12/03/2019 12:00 PM EDT) Anatomical Region Laterality Modality Heart Other Narrative 12/03/2019 12:32 PM EDT Holter monitor report Indication palpitations Findings: The underlying rhythm was a sinus rhythm with an average heart rate 59 bpm, minimal heart rate 39 bpm, maximal heart rate 94 bpm. Patient is in sinus bradycardia less than 60 bpm 53% of the time. There are rare isolated PVCs. There are rare isolated premature atrial contractions. No tachyarrhythmias. Conclusion: Unremarkable Holter monitor. Patient has sinus rhythm and sinus bradycardia. Symptoms did not correlate with any abnormalities. Procedure Note Troy Angel MD - 12/03/2019 Holter monitor report Indication palpitations Findings: The underlying rhythm was a sinus rhythm with an average heart rate 59bpm, minimal heart rate 39 bpm, maximal heart rate 94 bpm. Patient is in sinus bradycardia less than 60 bpm 53% of the time. There are rare isolated PVCs. There are rare isolated premature atrial contractions. No tachyarrhythmias. Conclusion: Unremarkable Holter monitor. Patient has sinus rhythm and sinus bradycardia. Symptoms did not correlate with any abnormalities. Song Keenan MD [facility] ORDERABLES F inal Result documented in this encounter Visit Diagnoses Diagnosis Palpitations Palpitations documented in this encounter Additional Health Concerns Assessment Noted Time PHQ-2 Depression Total Score: 0 08/07/19 20 10:38 AM EST documented as of this encounter Care Teams Alteration Workroom Supervisor Relationship Specialty Start Date End Date Destiny Ortega NP [email or web address] PCP - General Family Medicine 2/14/18 3/21/24 Vero Hogue FNP [address] [facility] [address] [place] [address] [email or web address] PCP - General Nurse Practitioner 09/20/23 11/21/23 Referring, Not Required PCP - General 11/22/23 12/03/23 Bossman Hull PA-C [address] [place] [address] [email or web address] PCP - General Physician Divisional Merchandising Manager 12/04/23 11/15/24 Pcp, Unknown PCP - General 11/16/24 Juliana Huertas MD [address] [place] [address] [email or web address] Insurance Assigned Provider 11/04/19 07/09/20 Claude Capps MD [address] [place] [id number] Pulmonary Disease 04/12/20 Unruly Jolley MD [address] [place] [id number] Urology 04/12/20 Nicolas Andrea DPM [address] [place] [address] Podiatry 04/12/20 Bobby Briseno MD [address] [place] [address] [email or web address] Insurance Assigned Provider 07/09/20 08/06/20 Noble Mcdonnell MD [address] [place] [address] [email or web address] Insurance Assigned Provider 10/05/23 07/06/24 documented as of this encounter Additional Source Comments The information contained in this document represents components of the legal health record. It is not the complete legal health record.[facility]
--- OUTSIDE RECORDS SUMMARY | 2025-06-28 16:34 | XMS_ITS | Clinical Summary ---
Author Organization [facility] Prior to 11/28/24 Address [address] [place] [address] Care Team Providers Care Air Bag Builder Name Role Phone Destiny Ortega NP Primary Care Provider [phone] Allergies Active Allergy Reactions Criticality Noted Date [...] age to complete this topic Care Teams Air Bag Builder Relationship Specialty Start Date End Date Destiny Ortega NP [address] [facility] INT[facility] [place] [address] PCP - General Family Medicine 08/21/22
--- OUTSIDE RECORDS SUMMARY | 2025-06-28 16:34 | XMS_ITS | Encounter Summary ---
Author Organization [facility] Address [address] [place] [address] Care Team Providers Care Marble Worker Name Role Phone Karrie Mckinney Primary Care Provider [phone] Encounter Details Date Type Department Care Team (Late st Contact Info) Description 04/09/2025 Lab Requisition [facility] - Main Lab [address] [facility] [place] [address] Kami Valles MD [address] [place] [id number] Encounter for other general examination Social History [...] PT PT STG x 8 visits from [facility] 01/28/2025 General No Marciano Smalls, [...] 4-/5 PT LTG x 15 visits from [facility] 01/28/2025 General No Marciano Smalls, [...] Procedure Name Priority Date/Time Associated Diagnosis Comments PROCALCITONIN STAT 04/09/2025 11:46 AM EDT Encounter for other general examination CBC WITH AUTO DIFFERENTIAL STAT 04/09/2025 11:46 AM EDT Encounter for other general examination CBC AND DIFFERENTIAL STAT 04/09/2025 11:46 AM EDT Encounter for other general examination MAGNESIUM STAT 04/09/2025 11:46 AM EDT Encounter for other general examination LACTATE STAT 04/09/2025 11:46 AM EDT Encounter for other general examination COMPREHENSIVE METABOLIC PANEL STAT 04/09/2025 11:46 AM EDT Encounter for other general examination documented in this encounter Results * (ABNORMAL) CBC auto differential (04/09/2025 11:46 AM EDT) WBC 8.7 4.8 - 10.8 K/mcL LAB HEMETOLOGY METHOD 04/09/2025 12:54 PM EDT [facility] RBC 4.10(L) 4.50 - 5.50 M/mcL LAB HEMETOLOGY METHOD 04/09/2025 12:54 PM EDT [facility] Hemoglobin 13.6 13.5 - 17.5 g/dL LAB HEMETOLOGY METHOD 04/09/2025 12:54 PM EDT [facility] Hematocrit 40.1(L) 42.0 - 54.0 % LAB HEMETOLOGY METHOD 04/09/2025 12:54 PM EDT [facility] MCV 99.0(H) 79.0 - 98.0 FL LAB HEMETOLOGY METHOD 04/09/2025 12:54 PM EDT [facility] MCH 33.6(H) 27.0 - 32.0 pcg LAB HEMETOLOGY METHOD 04/09/2025 12:54 PM EDT [facility] MCHC 33.9 32.0 - 37.0 g/dL LAB HEMETOLOGY METHOD 04/09/2025 12:54 PM EDT [facility] RDW 12.7 11.0 - 15.0 % LAB HEMETOLOGY METHOD 04/09/2025 12:54 PM EDT [facility] Platelets 176 130 - 400 K/mcL LAB HEMETOLOGY METHOD [facility]/09[facility] 12[facility] MPV 10.0 7.0 - 11.0 FL LAB HEMETOLOGY METHOD 04/09/2025 12:[facility] NRBC 0.0 <1.0 % LAB HEMETOLOGY METHOD 04/09/2025 12:54 [facility] NRBC Absolute 0.00 <0.10 K/mcL LAB HEMETOLOGY METHOD 04/09/2025 12:54 [facility] Neutrophils Relative 76.4 % LAB HEMETOLOGY METHOD 04/09/2025 12:54 PM [facility] Lymphocytes Relative 9.6 % LAB HEMETOLOGY METHOD 04/09/2025 12:54 PM [facility] Monocytes Relative 12.9 % LAB HEMETOLOGY METHOD 04/09/2025 12:54 PM [facility] Eosinophils Relative 0.6 % LAB HEMETOLOGY METHOD 04/09/2025 12:54 PM [facility] Basophils Relative 0.3 % LAB HEMETOLOGY METHOD 04/09/2025 12:54 PM EDT [facility] Immature Granulocytes Relative 0.2 % LAB HEMETOLOGY METHOD 04/09/2025 12:54 [facility] Neutrophils Absolute 6.63 1.50 - 7.00 K/mcL LAB HEMETOLOGY METHOD 04/09/2025 12:54 [facility] Lymphocytes Absolute 0.83(L) 1.00 - 5.00 K/mcL LAB HEMETOLOGY METHOD 04/09/2025 12:54 [facility] Monocytes Absolute 1.12(H) 0.20 - 1.00 K/mcL LAB HEMETOLOGY METHOD 04/09/2025 12:54 PM EDT [facility] Eosinophils Absolute 0.05 0.00 - 0.50 K/mcL LAB HEMETOLOGY METHOD 04/09/2025 12:54 PM EDT [facility] Basophils Absolute 0.03 0.00 - 0.20 K/mcL LAB HEMETOLOGY METHOD 04/09/2025 12:54 PM EDT [facility] Immature Granulocytes Absolute 0.02 0.00 - 0.03 K/mcL LAB HEMETOLOGY METHOD 04/09/2025 12:54 PM EDT [facility] Blood Venous blood specimen / Unknown Venipuncture / Unknown 04/09/2025 11:46 AM EDT 04/09/2025 12:45 PM EDT us Kami Valles MD LAB BLOOD ORDERABLES Final Resu lt Performing Organization Address City/[facility]/ZIP Co de Phone Number [facility] [address] [place] [address], [place] [phone] * Magnesium (04/09/2025 11:46 AM EDT) Magnesium 1.9 1.9 - 2.6 mg/dL LAB CHEMISTRY METHOD 04/09/2025 1:14 PM EDT [facility] Blood Venous blood specimen / Unknown Venipuncture / Unknown 04/09/2025 11:46 AM EDT 04/09/2025 12:45 PM EDT us Kami Valles MD LAB BLOOD ORDERABLES Final Resu lt [facility] [address] [place] [address], [place] [phone] * Lactate (04/09/2025 11:46 AM EDT) Lactate 0.6 0.4 - 2.0 mmol/L LAB CHEMISTRY METHOD 04/09/2025 1:14 PM EDT [facility] Blood Venous blood specimen / Unknown Venipuncture / Unknown 04/09/2025 11:46 AM EDT 04/09/2025 12:45 PM EDT us Kami Valles MD LAB BLOOD ORDERABLES Final Resu lt [facility] [address] [place] [address], * Procalcitonin (04/09/2025 11:46 AM EDT) Procalcitonin 0.06 <=0.16 ng/mL LAB CHEMISTRY METHOD 04/09/2025 1:32 PM EDT [facility] Blood Venous blood specimen / Unknown Venipuncture / Unknown 04/09/2025 11:46 AM EDT 04/09/2025 12:45 PM EDT Narrative [facility] - 04/09/2025 1:32 PM EDT Procalcitonin > 2.00 ng/ml: Procalcitonin Levels above 2.00 ng/ml, on the first day of ICU admission represent a high risk for progression to severe sepsis and/or septic shock. Procalcitonin < 0.50 ng/ml: Procalcitonin levels below 0.50 ng/ml on the first day of ICU admission represent a low risk for progression to severe sepsis and/or septic shock. Concentrations <0.5 ng/mL do not exclude an infection, on account of local ized infections (without systemic signs) which can be associated with such low concentrations, or a systemic infection in its initial stages (<6 hours). Furthermore, increased procalcitonin can occur without infection. PCT concentrations between 0.5 and 2.0 ng/mL should be interpreted taking into account the patient's history. It is recommended to retest PCT within 6-24 hours if any concentrations <2.0 ng/mL are obtained. us Kami Valles MD LAB BLOOD ORDERABLES Final Resu lt [facility] [address] [place] [address], [place] [phone] * (ABNORMAL) Comprehensive metabolic panel (04/09/2025 11:46 AM EDT) Pathologist [facility] Sodium 140 133 - 145 mmol/L LAB CHEMISTRY METHOD 04/09/2025 1:14 PM [facility] Potassium 3.9 3.5 - 5.5 mmol/L LAB CHEMISTRY METHOD 04/09/2025 1:14 PM [facility] Chloride 102 96 - 110 mmol/L LAB CHEMISTRY METHOD 04/09/2025 1:14 PM [facility] CO2 33(H) 21 - 32 mmol/L LAB CHEMISTRY METHOD 04/09/2025 1:14 PM [facility] Anion Gap 5 3 - 11 LAB CHEMISTRY METHOD 04/09/2025 1:14 PM [facility] Glucose 103(H) 70 - 100 mg/dL LAB CHEMISTRY METHOD 04/09/2025 1:14 PM [facility] BUN 10 5 - 25 mg/dL LAB CHEMISTRY METHOD 04/09/2025 1:14 PM [facility] Creatinine 0.82 0.70 - 1.30 mg/dL LAB CHEMISTRY METHOD 04/09/2025 1:14 PM [facility] eGFR 92 >=60 mL/min/1. 73m2 LAB CHEMISTRY METHOD 04/09/2025 1:14 PM [facility] Comment:Calculation based on the Chronic Kidney Disease Epidemiology Collaboration (CKD-EPI) equation refit without adjustment for race. BUN/Creatinine Ratio 12.2 LAB CHEMISTRY METHOD 04/09/2025 1:14 PM [facility] Calcium 8.5 8.5 - 10.5 mg/dL LAB CHEMISTRY METHOD 04/09/2025 1:14 PM EDT [facility] AST (SGOT) 24 10 - 42 unit/L LAB CHEMISTRY METHOD 04/09/2025 1:14 [facility] ALT (SGPT) 13 10 - 60 unit/L LAB CHEMISTRY METHOD 04/09/2025 1:14 PM EDT [facility] Alkaline Phosphatase 46 42 - 121 unit/L LAB CHEMISTRY METHOD 04/09/2025 1:14 PM EDT [facility] Total Protein 5.9(L) 6.0 - 8.0 g/dL LAB CHEMISTRY METHOD 04/09/2025 1:14 PM EDT [facility] Albumin 3.2 3.2 - 5.0 g/dL LAB CHEMISTRY METHOD 04/09/2025 1:14 PM EDT [facility] Total Bilirubin 1.1 0.0 - 1.4 mg/dL LAB CHEMISTRY METHOD 04/09/2025 1:14 PM T [facility] Blood Venous blood specimen / Unknown Venipuncture / Unknown 04/09/2025 11:46 AM EDT 04/09/2025 12:45 PM EDT us Kami Valles MD LAB BLOOD ORDERABLES Final Resu lt [facility] [address] [place] [address], documented in this encounter Visit Diagnoses Diagnosis Encounter for other general examination documented in this encounter Care Teams Marble Worker Relationship Specialty Start Date End Date Karrie Mckinney PA [address] [place] [address], [address] [place] [address] PCP - General 12/28/24 documented as of this encounter
--- OUTSIDE RECORDS SUMMARY | 2025-06-28 16:34 | XMS_ITS | Encounter Summary ---
Author Organization [facility] Address [address] [place] [address] Care Team Providers Care Women'S Swim Coach Name Role Phone Karrie Mckinney Primary Care Provider [phone] Encounter Details Date Type Department Care Team (Late st Contact Info) Description 10/14/[address] [facility] - Main Lab [address] [facility] [place] [phone] Dexter Rodas MD [address] [place] [address] Elevated prostate specific antigen (PSA) Social History Tobacco Use Types Packs/Day Years Used Date Smoking Tobacco: Never Smokeless Tobacco: Never Sex and Gender Information Value Date Recorded Sex Assigned at Male 02/05/2025 9:35 AM EDT Legal Sex Male 3:52 PM EST Gender Identity Male 02/05/2025 9:35 AM EDT Sexual Orientation Straight 02/05/2025 9: 35 AM EDT documented as of this encounter Plan of Treatment Not on file documented as of this encounter Procedures Procedure Name Priority Date/Time Associated Diagnosis Comments AP OUTSIDE CONSULT Routine 10/12/2024 Elevated prostate specific antigen (PSA) documented in this encounter Results * Anatomic pathology outside consult (10/12/2024) Final Diagnosis A. Prostate, Left [place] Biopsy: - Benign prostatic tissue. B. Prostate, Left Lateral [place] Biopsy: - Prostatic acinar adenocarcinoma (conventional type), [...] acinar adenocarcinoma (conventional type), grade group 1 (Columbus score 3+3=6). - Tumor continuously involves 6% [...] an invasive adenocarcinoma. PIN4 immunostain performed at [facility] [[email or web address] lab, [address] [place] [address] [address], [place] [address], CLIA #[id number]. H. Prostate, Right [place] Biopsy: - Benign prostatic tissue. I. Prostate, Right Lateral [place] Biopsy: - Prostatic acinar adenocarcinoma (conventional type), [...] (Robbie score 3+4=7). - Percentage pattern 4: 5%. - Tumor continuously involves 38% of overall tissue, present in 3 of 3 tissue cores. 10/20/2024 11:43 AM EDT [facility] at 1143 EDT Clinical Information Elevated PSA R97.20 PSA: 4.1 (09/07/24) [id number] 10/20/2024 11:43 AM EDT [facility] Gross Description A. Prostate, Left [place] Biopsy: Received, properly labeled, are two H and E stained slides and two unstained slides. B. Prostate, Left Lateral [place] Biopsy: Received, properly labeled, are two H [...] two unstained slides. H. Prostate, Right [place] Biopsy: Received, properly labeled, are two H and E stained slides and two unstained slides. I. Prostate, Right Lateral [place] Biopsy: Received, properly labeled, are two H [...] unstained slides. /al 10/20/2024 11:43 AM EDT [facility] Disclaimer Unless otherwise specified, all tissue is 10% NB formalin fixed and paraffin embedded. Technical pathology services provided by [facility] at [address], [place] [address] (CLIA #[id number]/Neda Beebe MD, V/[employer] Land[employer] Signal Officer) 10/20/2024 11:43 AM EDT [facility] Tissue Prostate / Unknown 10/12/20242024 [...] MD LAB PATHOLOGY ORDERABLES Final R esult [facility] [address] [place] [address], documented in this encounter Visit Diagnoses Diagnosis Elevated prostate specific antigen (PSA) documented in this encounter Care Teams Women'S Swim Coach Relationship Specialty Start Date End Date Karrie Mckinney PA [address] [place] [address], [address] [place] [address] PCP - General 12/28/24 documented as of this encounter
--- OUTSIDE RECORDS SUMMARY | 2025-06-28 16:34 | XMS_ITS | Clinical Summary ---
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 generated.Automated exposure control utilized. CT ABDOMEN AND PELVIS FINDINGS: Lung bases/heart: Mild cardiomegaly. Dense aortic valvular calcificationwhich may be an incidental finding or indicative of valvular disease. Nopericardial effusion. Bilateral extrapleural fat hypertrophy andcalcification. This is likely postinflammatory. Spleen: Normal. Liver: Mild diffuse low-attenuation representing steatosis. Gallbladder/biliary tree: Normal. Pancreas: Mild diffuse fatty infiltration. Adrenal glands: Normal. Vasculature: Diffuse arterial calcified plaque. No AAA or acutefindings. Genitourinary: 6 mm non-obstructing left lower renal pole calculus. Thereis a 1.4 cm hypodensity in the left lower renal pole which is poorlycharacterized due to artifact from patient's arthropathy. Hounsfieldunits measure 22. This is likely an incidental cyst. Bladder andprostate are normal. Gastrointestinal tract: Mild diffuse colonic diverticulosis. No mass oracute findings. Peritoneum/retroperitoneum: Mildly enlarged left external iliac lymphnodes measuring 1.1 and 1.3 cm in short axis. These may be reactive.There are predominantly fatty replaced enlarged lymph nodes in the leftcommon iliac, right external and internal iliac chains consistent withreactive nodes. They range in size from 1.5 to 1.8 cm in short axis. Noupper abdominal lymphadenopathy. No ascites or fluid collections. Musculoskeletal: Morbid obesity. Moderate-sized fat-containing umbilicalhernia with the ostiomeatal measuring 3.9 cm small right inguinal hernia.Diffuse thoracolumbar spine degenerative disease and lower lumbar spinefacet arthropathy. 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 There is a 2.1 cmcircumscribed lytic lesion in the right iliac wing with corticaldestruction. No other lytic lesions. IMPRESSION: Limited exam due to large habitus. 1. No intestinal tract findings to account for the patient's irondeficiency or bleeding. 2. Nonspecific left external iliac enlarged lymph nodes. 3. 2.1 cm right iliac wing lytic lesion. Differential diagnosis includesa bone cyst or a lytic metastasis. 4. Hepatic steatosis. 5. Nonobstructive left nephrolithiasis. 6. Multiple additional findings as outlined. TOTAL CTDIvol: 56.4 mGy POS - [id number] Noble Mcdonnell MD IMG CT ABD/PELVIS Edited Resu lt - Final from Last 3 Months or Most Recently Relevant to Health Maintenance Insurance MEDICARE PART A & B Member Subscriber Plan / Payer (Ef fective 2020-Present) Name:Lee Herrera Member ID:[id number] Relation to Subscriber:Self Name:Lee Herrera Subscriber ID:[id number] Payer ID:[id number] Group ID:Not on file Type:Medicare Address: [facility] GetThis [facility] [address] [facility] [place] [address] [facility] MEDEX SUPPLEMENT [facility] Address: [facility] [address] [place] [address] MEDICARE PART A & B [employer] MEDEX SUPPLEMENT MEDICARE PART A & B [employer] MEDEX SUPPLEMENT MEDICARE PART A & B [employer] MEDEX SUPPLEMENT MEDICARE PART A & B [employer] MEDEX SUPPLEMENT MEDICARE PART A & B [employer] MEDEX SUPPLEMENT MEDICARE PART A & B [employer] MEDEX SUPPLEMENT MEDICARE PART A & B [employer] MEDEX SUPPLEMENT MEDICARE PART A & B [employer] MEDEX SUPPLEMENT Care Teams Store Promoter Relationship Specialty Start Date End Date Pcp, Unknown PCP - General 11/16/24 [place] [address] [place] [id number] Pulmonary Disease 04/12/20 Unruly Jolley MD [address] [place] [phone] Urology 04/12/20 Nicolas Andrea DPM [address] [place] [address] Podiatry 04/12/20 Additional Source Comments The information contained in this document represents components of the legal health record. It is not the complete legal health record.[facility]
--- OUTSIDE RECORDS SUMMARY | 2025-06-28 16:34 | XMS_ITS | Encounter Summary ---
Author Organization [facility] Address [address] [place] [address] Care Team Providers Care Swimming Pool Service Technician Name Role Phone Karrie Mckinney Primary Care Provider [phone] Encounter Details Date Type Department Care Team (Late st Contact Info) Description 04/09/2025 Lab Requisition [facility] - Main Lab [address] [facility] [place] [address] Lewis Soto PA [address] [phone] Social History Tobacco Use Types Packs/Day Years [...] Assessment Author Yes 04/06/2025 5:19 PM EDT [place], S cott, RN * Do you have serious difficulty dressing or bathing? Answer Date of Assessment Author No 04/06/2025 5:19 PM EDT Deanna Marrero RN * Because of a physical, mental, or emotional condition, do you have serious difficulty doing errandsalone such as visiting the doctor? Answer Date of Assessment Author No 04/06/2025 5:19 PM ALCONT Deanna Marrero RN documented as of this encounter Mental Status * Because of a physical, mental, or emotional condition, do you have serious difficulty concentrating, remembering, or making decisions? (5 years old or older) Answer Entry Date Author No 04/06/2025 5:19 PM ALCONT Deanna Marrero RN documented in this encounter Plan of Treatment Not on file documented as of this encounter Goals Goal Patient Goal Type Associated Problems Recent Progress Patient-Stated? Author feel better General Yes Marciano Smalls PT PT STG x 8 visits from [facility] 01/28/2025 General No Marciano Smalls PT Note: [x] = goal MET [] = goal NOT MET [] Pt will report an average shoulder pain level decrease of 2/10, [] Pt will increase right shoulder abd active ROM to 130 degrees, [] Pt will increase right shoulder flexion active ROM to 120 degrees, [] Pt will improve right shoulder ER strength to 4-/5 PT LTG x 15 visits from [facility] 01/28/2025 General No Marciano Smalls, PT Note: [...] UE prn documented as of this encounter Visit Diagnoses Not on filedocumented in this encounter Care Teams Swimming Pool Service Technician Relationship Specialty Start Date End Date Karrie Mckinney PA [address], [address] [place] [address] PCP - General 12/28/24 documented as of this encounter
--- OUTSIDE RECORDS SUMMARY | 2025-06-28 16:34 | XMS_ITS | Encounter Summary ---
Author Organization [facility] Address [address] [place] [address] Care Team Providers Care Restaurant Hostess Name Role Phone Karrie Mckinney Primary Care Provider [phone] Encounter Details Date Type Department Care Team (Late st Contact Info) Description 04/15/2025 Lab Requisition [facility] - Main Lab 299 [facility] [place] [address] Lewis Soto PA [address] [phone] Other buttermaker continuous churn (current) drug therapy Social History Tobacco Use Types Packs/Day Years [...] Procedure Name Priority Date/Time Associated Diagnosis Comments COMPLETE BLOOD COUNT Routine 04/15/2025 6:15 AM EDT Other buttermaker continuous churn (current) drug therapy BASIC METABOLIC PANEL Routine 04/15/2025 6:15 AM EDT Other buttermaker continuous churn (current) drug therapy documented in this encounter Results * (ABNORMAL) Basic metabolic panel (04/15/2025 6:15 AM EDT) Sodium 143 133 - 145 mmol/L LAB CHEMISTRY METHOD 04/15/2025 12:37 PM [facility] Potassium 4.2 3.5 - 5.5 mmol/L LAB CHEMISTRY METHOD 04/15/2025 12:37 PM [facility] Chloride 101 96 - 110 mmol/L LAB CHEMISTRY METHOD 04/15/2025 12:37 PM [facility] CO2 37(H) 21 - 32 mmol/L LAB CHEMISTRY METHOD 04/15/2025 12:37 PM [facility] Anion Gap 5 3 - 11 LAB CHEMISTRY METHOD 04/15/2025 12:37 PM [facility] Glucose 74 70 - 100 mg/dL LAB CHEMISTRY METHOD 04/15/2025 12:37 PM [facility] BUN 33(H) 5 - 25 mg/dL LAB CHEMISTRY METHOD 04/15/2025 12:37 PM [facility] Creatinine 0.96 0.70 - 1.30 mg/dL LAB CHEMISTRY METHOD 04/15/2025 12:37 PM [facility] eGFR 83 >=60 mL/min/1. 73m2 LAB CHEMISTRY METHOD 04/15/2025 12:37 PM [facility] Comment:Calculation based on the Chronic Kidney Disease Epidemiology Collaboration (CKD-EPI) equation refit without adjustment for race. BUN/Creatinine Ratio 34.4 LAB CHEMISTRY METHOD 04/15/2025 12:37 PM [facility] Calcium 9.1 8.5 - 10.5 mg/dL LAB CHEMISTRY METHOD 04/15/2025 12:37 PM [facility] Blood Venous blood specimen / Unknown Venipuncture / Unknown 04/15/2025 6:15 AM EDT 04/15/2025 10:26 AM EDT us Lewis GUILLEN LAB BLOOD ORDERABLES Final R esult [facility] [address] [place] [address], * (ABNORMAL) Complete blood count (04/15/2025 6:15 AM EDT) WBC 5.9 4.8 - 10.8 K/mcL LAB HEMETOLOGY METHOD 04/15/2025 12:[address] [facility] RBC 4.20(L) 4.50 - 5.50 M/mcL LAB HEMETOLOGY METHOD 04/15/2025 12:[address] [facility] Hemoglobin 13.4(L) 13.5 - 17.5 g/dL LAB HEMETOLOGY METHOD 04/15/2025 12:[address] [facility] Hematocrit 42.5 42.0 - 54.0 % LAB HEMETOLOGY METHOD [facility] MCV 102.2(H) 79.0 - 98.0 FL LAB HEMETOLOGY METHOD 04/15/2025 12:[address] [facility] MCH 32.2(H) 27.0 - 32.0 pcg LAB HEMETOLOGY METHOD 04/15/2025 12:[address] [facility] MCHC 31.5(L) 32.0 - 37.0 g/dL LAB HEMETOLOGY METHOD [facility]/15[facility]25 [facility] RDW 12.2 11.0 - 15.0 % LAB HEMETOLOGY METHOD 04/15/2025 12:[address] [facility] Platelets 194 130 - 400 K/mcL LAB HEMETOLOGY METHOD 04/15/2025 12:[address] [facility] MPV 10.6 7.0 - 11.0 FL LAB HEMETOLOGY METHOD 04/15/2025 12:[address] [facility] NRBC 0.0 <1.0 % LAB HEMETOLOGY METHOD 04/15/2025 12:[address] [facility] NRBC Absolute 0.00 <0.10 K/mcL LAB HEMETOLOGY METHOD 04/15/2025 12:[address] [facility] Blood Venous blood specimen / Unknown Venipuncture / Unknown 04/15/2025 6:15 AM EDT 04/15/2025 10:26 AM EDT us Lewis GUILLEN LAB BLOOD ORDERABLES Final R esult [facility] [address] [place] [address], documented in this encounter Visit Diagnoses Diagnosis Other buttermaker continuous churn (current) drug therapy documented in this encounter Care Teams Restaurant Hostess Relationship Specialty Start Date End Date Karrie Mckinney PA [address] [place] [address], [address] [place] [address] PCP - General 12/28/24 documented as of this encounter
--- OUTSIDE RECORDS SUMMARY | 2025-06-28 16:34 | XMS_ITS | Encounter Summary ---
Author Organization [facility] Address [address] [place] [address] Care Team Providers Care Manipulative Therapy Specialist Name Role Phone Karrie Mckinney Primary Care Provider [phone] Encounter Details Date Type Department Care Team (Late st Contact Info) Description 04/22/2025 Lab Requisition [facility] - Main Lab [address] [facility] [place] [address] Lewis Soto PA [address] [phone] Other ocean transportation intermediary (current) drug therapy Social History Tobacco Use [...] PT PT STG x 8 visits from [facility] 01/28/2025 General No Marciano Smalls, [...] 4-/5 PT LTG x 15 visits from [facility] 01/28/2025 General No Marciano Smalls, [...] Associated Diagnosis Comments COMPLETE BLOOD COUNT Routine 04/22/2025 6:16 AM EDT Other ocean transportation intermediary (current) drug therapy BASIC METABOLIC PANEL Routine 04/22/2025 6:16 AM EDT Other ocean transportation intermediary (current) drug therapy documented in this encounter Results * (ABNORMAL) Basic metabolic panel (04/22/2025 6:16 AM EDT) Sodium 139 133 - 145 mmol/L LAB CHEMISTRY METHOD 04/22/2025 2:18 PM [facility] Potassium 4.3 3.5 - 5.5 mmol/L LAB CHEMISTRY METHOD 04/22/2025 2:18 PM [facility] Chloride 99 96 - 110 mmol/L LAB CHEMISTRY METHOD 04/22/2025 2:18 PM [facility] CO2 34(H) 21 - 32 mmol/L LAB CHEMISTRY METHOD 04/22/2025 2:18 PM [facility] Anion Gap 6 3 - 11 LAB CHEMISTRY METHOD 04/22/2025 2:18 PM [facility] Glucose 70 70 - 100 mg/dL LAB CHEMISTRY METHOD 04/22/2025 2:18 PM [facility] BUN 27(H) 5 - 25 mg/dL LAB CHEMISTRY METHOD 04/22/2025 2:18 PM [facility] Creatinine 0.92 0.70 - 1.30 mg/dL LAB CHEMISTRY METHOD 04/22/2025 2:18 PM [facility] eGFR 87 >=60 mL/min/1. 73m2 LAB CHEMISTRY METHOD 04/22/2025 2:18 PM [facility] Comment:Calculation based on the Chronic Kidney Disease Epidemiology Collaboration (CKD-EPI) equation refit without adjustment for race. BUN/Creatinine Ratio 29.3 LAB CHEMISTRY METHOD 04/22/2025 2:18 PM [facility] Calcium 9.4 8.5 - 10.5 mg/dL LAB CHEMISTRY METHOD 04/22/2025 2:18 PM [facility] Blood Venous blood specimen / Unknown 04/22/2025 6:16 AM EDT 04/22/2025 11:43 AM EDT Lewis GUILLEN LAB BLOOD ORDERABLES Final R esult [facility] [address] [place] [address], * (ABNORMAL) Complete blood count (04/22/2025 6:16 AM EDT) WBC 7.0 4.8 - 10.8 K/mcL LAB HEMETOLOGY METHOD 04/22/2025 1:01 PM [facility] RBC 4.20(L) 4.50 - 5.50 M/mcL LAB HEMETOLOGY METHOD 04/22/2025 1:01 [facility] Hemoglobin 13.5 13.5 - 17.5 g/dL LAB HEMETOLOGY METHOD 04/22/2025 1:01 [facility] Hematocrit 41.3(L) 42.0 - 54.0 % LAB HEMETOLOGY METHOD 04/22/2025 1:01 PM [facility] MCV 99.3(H) 79.0 - 98.0 FL LAB HEMETOLOGY METHOD 04/22/2025 1:01 [facility] MCH 32.5(H) 27.0 - 32.0 pcg LAB HEMETOLOGY METHOD 04/22/2025 1:01 PM [facility] MCHC 32.7 32.0 - 37.0 g/dL LAB HEMETOLOGY METHOD 04/22/2025 1:01 PM [facility] RDW 12.7 11.0 - 15.0 % LAB HEMETOLOGY METHOD 04/22/2025 1:01 PM EDT [facility] Platelets 219 130 - 400 K/mcL LAB HEMETOLOGY METHOD 04/22/2025 1:01 PM EDT [facility] MPV 11.5(H) 7.0 - 11.0 FL LAB HEMETOLOGY METHOD 04/22/2025 1:01 PM EDT [facility] NRBC 0.0 <1.0 % LAB HEMETOLOGY METHOD 04/22/2025 1:01 PM EDT [facility] NRBC Absolute 0.00 <0.10 K/mcL LAB HEMETOLOGY METHOD 04/22/2025 1:01 PM EDT [facility] Blood Venous blood specimen / Unknown Venipuncture / Unknown 04/22/2025 6:16 AM EDT 04/22/2025 11:43 AM EDT Lewis GUILLEN LAB BLOOD ORDERABLES Final R esult [facility] [address] [place] [address], documented in this encounter Visit Diagnoses Diagnosis Other skilled nursing (current) drug therapy documented in this encounter Care Teams Manipulative Therapy Specialist Relationship Specialty Start Date End Date Karrie Mckinney PA [address] [place] [address], [address] [place] [address] PCP - General 12/28/24 documented as of this encounter
--- OUTSIDE RECORDS SUMMARY | 2025-06-28 16:34 | XMS_ITS | Encounter Summary ---
Author Organization [facility] Address [address] [place] [phone] Phone Care Team Providers Care Head Of Digital Advertising & Integration Name Role Phone Noble Mcdonnell MD Primary Care Provider Destiny Ortega NP Primary Care Provider Juliana Huertas MD Unavailable Claude Capps MD Unavailable [phone] Unruly Jolley MD Unavailable [phone] Nicolas Andrea DPM Unavailable Bobby Briseno MD Unavailable Vero Hogue COMPRESSION MOLDING MACHINE TENDER Primary Care Provider Noble Mcdonnell MD Unavailable [phone] Referring, Not Required Primary Care Provider Un available Bossman Hull PA-C Primary Care Provider [phone] Pcp, Unknown Primary Care Provider Unavailabl e Encounter Details Date Type Department Care Team (Late st Contact Info) Description 08/08/2017 Procedure Pass [facility], Ct Scan - [address] [address] Social History Tobacco Use Types Packs/Day Years Used Date Smoking Tobacco: Former Cigarettes 1 35 0 12/01/1964 - 12/02/1999 Smokeless Tobacco: Never Alcohol Use [...] Diagnoses Not on filedocumented in this encounter Additional Health Concerns Assessment Noted Time PHQ-2 Depression Total Score: 0 08/08/19 18 2:31 PM EST documented as of this encounter Care Teams Head Of Digital Advertising & Integration Relationship Specialty Start Date End Date Noble Mcdonnell MD [address] [place] [address] [email or web address] PCP - General 04/18/17 08/13/17 Destiny Ortega NP [address] [place] [address] PCP - General Family Medicine 08/14/17 09/19/23 Vero Hogue FNP [address] [address] PCP - General Nurse Practitioner 09/20/23 11/21/23 Referring, Not Required PCP - General 11/22/23 12/03/23 Bossman Hull PA-C [address] [place] [address] PCP - General Physician Dental Services Director 12/04/23 11/15/24 Pcp, Unknown PCP - General 11/16/24 Juliana Huertas MD [address] [place] [address] [email or web address] Insurance Assigned Provider 11/04/19 07/09/20 Claude Capps MD [address] [place] [address] Pulmonary Disease 04/12/20 Unruly Jolley MD [address] [place] [phone] Urology 04/12/20 Nicolas Andrea DPM [address] [place] [phone] Podiatry 04/12/20 Bobby Briseno MD [address] [place] [address] Insurance Assigned Provider 07/09/20 08/06/20 Noble Mcdonnell MD [address] [place] [address] Insurance Assigned Provider 10/05/23 07/06/24 documented as of this encounter Additional Source Comments The information contained in this document represents components of the legal health record. It is not the complete legal health record.[facility]
--- OUTSIDE RECORDS SUMMARY | 2025-06-28 16:34 | XMS_ITS | Encounter Summary ---
Author Organization [facility] Address [address] [place] [address] Care Team Providers Care Electric Meter Technician Name Role Phone Karrie Mckinney Primary Care Provider [phone] Encounter Details Date Type Department Care Team (Late st Contact Info) Description 04/14/2025 Lab Requisition [facility] - Main Lab [address] [facility] [place] [address] Lewis Soto PA [address] [phone] Other [place] [facility] (current) drug therapy Social History Tobacco Use [...] PT PT STG x 8 visits from [facility] 01/28/2025 General No Marciano Smalls, [...] 4-/5 PT LTG x 15 visits from [facility] 01/28/2025 General No Marciano Smalls, [...] Date/Time Associated Diagnosis Comments BASIC METABOLIC PANEL Routine 04/14/2025 6:00 AM EDT Other rn long term care (current) drug therapy documented in this encounter Results * (ABNORMAL) Basic metabolic panel (04/14/2025 6:00 AM EDT) Sodium 142 133 - 145 mmol/L LAB CHEMISTRY METHOD 04/14/2025 10:17 AM [facility] Potassium 4.4 3.5 - 5.5 mmol/L LAB CHEMISTRY METHOD 04/14/2025 10:17 AM [facility] Chloride 101 96 - 110 mmol/L LAB CHEMISTRY METHOD 04/14/2025 10:17 AM [facility] CO2 38(H) 21 - 32 mmol/L LAB CHEMISTRY METHOD 04/14/2025 10:17 AM [facility] Anion Gap 3 3 - 11 LAB CHEMISTRY METHOD 04/14/2025 10:17 AM [facility] Glucose 92 70 - 100 mg/dL LAB CHEMISTRY METHOD 04/14/2025 10:17 AM [facility] BUN 32(H) 5 - 25 mg/dL LAB CHEMISTRY METHOD 04/14/2025 10:17 AM [facility] Creatinine 0.95 0.70 - 1.30 mg/dL LAB CHEMISTRY METHOD 04/14/2025 10:17 AM [facility] eGFR 84 >=60 mL/min/1. 73m2 LAB CHEMISTRY METHOD 04/14/2025 10:17 AM [facility] Comment:Calculation based on the Chronic Kidney Disease Epidemiology Collaboration (CKD-EPI) equation refit without adjustment for race. BUN/Creatinine Ratio 33.7 LAB CHEMISTRY METHOD 04/14/2025 10:17 AM [facility] Calcium 9.2 8.5 - 10.5 mg/dL LAB CHEMISTRY METHOD 04/14/2025 10:17 AM [facility] Blood Venous blood specimen / Unknown Venipuncture / Unknown 04/14/2025 6:00 AM EDT 04/14/2025 8:38 AM EDT us Lewis GUILLEN LAB BLOOD ORDERABLES Final R esult [facility] [address] [place] [address], documented in this encounter Visit Diagnoses Diagnosis Other [place] [facility] [place] (current) drug therapy documented in this encounter Care Teams Electric Meter Technician Relationship Specialty Start Date End Date Karrie Mckinney PA [address] [place] [address], [address] [place] [address] PCP - General 12/28/24 documented as of this encounter
--- OUTSIDE RECORDS SUMMARY | 2025-06-28 16:34 | XMS_ITS | Clinical Summary ---
Author Organization 175 [facility] Address [address] [place] [address] Phone Care Team Providers Care Tricot Knitter Name Role Phone Karrie Mckinney Primary Care Provider [phone] Allergies Active Allergy Reactions Criticality Noted Date [...] Take 1 Tablet by mouth daily. Active ascorbic acid (VITAMIN C) 500 mg tablet Take 1 tablet (500 mg total) by mouth. Active cyanocobalamin (Vitamin B-12) 1,000 mcg tablet Take 1 tablet (1,000 mcg total) by mouth daily. Active acetaminophen (TYLENOL 8 HOUR) 650 mg [...] BY MOUTH 1 HOUR BEFORE APPT Active diclofenac (VOLTAREN) 1 % topical gel 2-4 gm TID PRN right foot 2 Active ferrous sulfate 325 mg (65 mg iron) EC tablet Take 1 tablet (325 mg total) by mouth. Active miscellaneous medical supply [facility] [place] [place] Two custom made compression knee socks, right lower extremity. Wear daily as directed. 0 Active metoprolol succinate (TOPROL-XL) 25 mg 24 hr tablet Take 1 tablet (25 mg total) by mouth. 3 Active senna-docusate (PERICOLACE) 8.6-50 mg per tablet Take 2 tablets by mouth. 4 Active traMADoL (ULTRAM) 50 mg tablet Take 1 tablet (50 mg total) by mouth 2 times daily. 4 Active Active Problems Problem Noted Date Diagnosed Date Chronic right shoulder pain 12/29/2024 Lymphedema 09/23/2024 Disorder of appendage of skin 09/23/2024 Abdominal pannus 09/23/2024 Right wrist pain 09/01/2024 Pain of right thumb 09/01/2024 History of decompression of ulnar nerve 07/13/19 25 Surgery follow-up 06/29/2024 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 05/05/20 24 Severe obesity 05/05/2024 Osteoarthritis 05/05/2024 Bradycardia, unspecified 04/06/2024 Gastrointestinal hemorrhage, unspecified 024 Unspecified protein-calorie malnutrition 024 Morbid (severe) obesity due to excess [...] Osteoarthrosis 11/06/2023 Paroxysmal atrial fibrillation 11/06/2023 Trigger little finger of right hand [...] Encounters Date Type Department Care Team Description 04/22/2025 Lab Requisition [facility] [address] [place] [phone] Lewis Soto PA Other assisted (current) drug therapy 04/15/2025 Lab Requisition [facility] [address] [place] [phone] Lewis Soto PA Other termination clerk (current) drug therapy 04/14/2025 Lab Requisition [facility] [address] [place] [phone] Lewis Soto PA Other termination clerk (current) drug therapy 04/11/2025 Lab Requisition [facility] [address] [place] [phone] Kami Valles MD Encounter for other general examination 04/10/2025 Lab Requisition [facility] [address] [place] [phone] Shelby Yusuf PA Encounter for other general examination 04/09/2025 Lab Requisition [facility] [address] [place] [phone] Kami Valles MD Encounter for other general examination 04/09/2025 Lab Requisition [facility] [address] [place] [phone] Kami Valles MD Encounter for other general examination 04/09/2025 Lab Requisition [facility] [address] [place] [phone] Lewis Soto PA 04/07/2025 Telephone [facility] [address] [phone] Marciano Smalls, PT 04/06/2025 4:49 PM EDT - 04/08/2025 2:50 PM EDT Emergency [facility] Emergency [address] [place] [phone] Layton Verma MD Ziebro, MD Dann Valenzuela Erika, MD Fainsod, Joshua, MD Zaidi, MD Joana Dial, initial encounter (Primary Dx); Effusion of right knee; Acute pain of right knee Discharge Disposition: Home or Self Care 03/30/2025 10:45 AM EDT Treatment [facility] [address] [phone] Dexter Mir, COMMUNICATION EQUIPMENT REPAIRER Glenohumeral arthritis, right (Primary Dx) from Last 3 Months Immunizations Immunization Administration Dates Next Due Influenza Quadravalent, 0.5m [...] subun it RSVpreF, 0.5mL, Preservative Free (Arexvy) 50yo and older 05/16/2023 Tdap Tetanus diptheria acell [...] Orientation Straight 02/05/2025 9: 35 AM EDT Last Filed Vital Signs Vital Sign Reading Time Taken Comments Blood Pressure 170/84 04/08/2025 5:26 AM EDT Pulse 60 04/08/2025 5:26 AM EDT Temperature 36.8 C (98.2 F) 04/08/2025 5:26 AM EDT Respiratory Rate 18 04/07/2025 10:18 PM EDT Oxygen Saturation 98% 04/08/2025 5:26 AM EDT Inhaled Oxygen Concentration - - Weight 181 kg (398 lb) 04/07/2025 5:47 AM EDT Height 167.6 cm (5' 6 ) 04/06/2025 7:38 PM EDT Body Mass Index 64.24 04/06/2025 7:38 PM EDT Plan of Treatment Health Maintenance Due Date Last Done Comments Colorectal Cancer Screening: Colonoscopy 1950 Falls Risk Assessment 08/04/2023 Medicare Annual Wellness Visit 08/04/2023 Social Influencers of Health Screening 08/04/2023 DTaP,Tdap,and Td Vaccines (2 - Td or Tdap) 10/24/2023 10/23/2013 Depression Screening 07/01/2024 COVID-19 Vaccine ( season) 2025 04/22/2024, 05/30/2023, 04/16/2022, Additional history exists Influenza Vaccine (#1) 2025 , 03/31/2024, 05/01/2023, Additional history exists Hypertension/CHF/CAD Annual BMP Blood Test 04/22/2026 04/22/2025, 04/15/2025, 04/14/2025, Additional history exists Cholesterol Screening (Lipid Panel) 05/05/2029 05/05/2024, 05/01/2023, 05/01/2023 Zoster Vaccines Completed 08/29/2018, 1010/2017, 04/29/2014 Hepatitis C Screening Completed 04/10/2019 Pneumococcal Vaccine: 50+ Years Completed 04/10/2019, 01/27/2015, 05/08/2013 RSV Immunization Adult Patients Completed 05/16/2023 HIB Vaccines Aged Out No longer eligi [...] PT PT STG x 8 visits from [facility] 01/28/2025 General No Marciano Smalls, PT [...] 4-/5 PT LTG x 15 visits from [facility] 01/28/2025 General No Marciano Smalls, PT [...] open/close car door with involved UE prn Procedures Procedure Name Priority Date/Time Associated Diagnosis Comments BASIC METABOLIC PANEL Routine 04/22/2025 6:16 AM EDT Other assisted (current) drug therapy COMPLETE BLOOD COUNT Routine 04/22/2025 6:16 AM EDT Other assisted (current) drug therapy BASIC METABOLIC PANEL Routine 04/15/2025 6:15 AM EDT Other assisted (current) drug therapy COMPLETE BLOOD COUNT Routine 04/15/2025 6:15 AM EDT Other assisted (current) drug therapy BASIC METABOLIC PANEL Routine 04/14/2025 6:00 AM EDT Other termination clerk (current) drug therapy CBC WITH AUTO DIFFERENTIAL Routine 04/11/2025 6:24 AM EDT Encounter for other general examination CBC AND DIFFERENTIAL Routine 04/11/2025 6:24 AM EDT Encounter for other general examination COMPREHENSIVE METABOLIC PANEL Routine 04/11/2025 6:24 AM EDT Encounter for other general examination MAGNESIUM Routine 04/11/2025 6:24 AM EDT Encounter for other general examination URINALYSIS [...] other general examination CULTURE BLOOD STAT 04/09/2025 11:53 AM EDT Encounter for other general examination CBC WITH AUTO DIFFERENTIAL STAT 04/09/2025 11:46 AM EDT Encounter for other general examination MAGNESIUM STAT 04/09/2025 11:46 AM EDT Encounter for other general examination LACTATE STAT 04/09/2025 11:46 AM EDT Encounter for other general examination PROCALCITONIN STAT 04/09/2025 11:46 AM EDT Encounter for other general examination COMPREHENSIVE METABOLIC PANEL STAT 04/09/2025 11:46 AM EDT Encounter for other general examination CBC AND DIFFERENTIAL STAT 04/09/2025 11:46 AM EDT Encounter for other general examination CULTURE BLOOD STAT 04/09/2025 11:46 AM EDT Encounter for other general examination CREATININE, SERUM Routine 04/07/2025 10: [address] LOWER EXTREMITY WO CONTRAST RIGHT STAT 04/06/2025 9:57 PM EDT XR KNEE 4+ VIEWS BILAT STAT 5:36 PM EDT LIPID PANEL Routine 05/01/2023 from Last 3 Months or Most Recently Relevant to Health Maintenance Results * (ABNORMAL) Complete blood count (04/22/2025 6:16 AM EDT) Only the most recent of2 resultswithin the time period is included. [facility] WBC 7.0 4.8 - 10.8 K/mcL LAB HEMETOLOGY METHOD 04/22/2025 1:01 PM EDT [facility] RBC 4.20(L) 4.50 - 5.50 M/mcL LAB HEMETOLOGY METHOD 04/22/2025 1:01 PM EDT [facility] Hemoglobin 13.5 13.5 - 17.5 g/dL LAB HEMETOLOGY METHOD 04/22/2025 1:01 PM EDT [facility] Hematocrit 41.3(L) 42.0 - 54.0 % LAB HEMETOLOGY METHOD 04/22/2025 1:01 PM EDT [facility] MCV 99.3(H) 79.0 - 98.0 FL LAB HEMETOLOGY METHOD 04/22/2025 1:01 PM EDT [facility] MCH 32.5(H) 27.0 - 32.0 pcg LAB HEMETOLOGY METHOD 04/22/2025 1:01 PM EDT [facility] MCHC 32.7 32.0 - 37.0 g/dL LAB HEMETOLOGY METHOD 04/22/2025 1:01 PM [facility] RDW 12.7 11.0 - 15.0 % LAB HEMETOLOGY METHOD 04/22/2025 1:01 PM [facility] Platelets 219 130 - 400 K/mcL LAB HEMETOLOGY METHOD 04/22/2025 1:01 PM EDT [facility] MPV 11.5(H) 7.0 - 11.0 FL LAB HEMETOLOGY METHOD 04/22/2025 1:01 PM [facility] NRBC 0.0 <1.0 % LAB HEMETOLOGY METHOD 04/22/2025 1:01 PM [facility] NRBC Absolute 0.00 <0.10 K/mcL LAB HEMETOLOGY METHOD 04/22/2025 1:01 PM [facility] Blood Venous blood specimen / Unknown Venipuncture / Unknown 04/22/2025 6:16 AM EDT 04/22/2025 11:43 AM EDT us Lewis GUILLEN LAB BLOOD ORDERABLES Final R esult [facility] [address] [place] [address], [place] [phone] * (ABNORMAL) Basic metabolic panel (04/22/2025 6:16 AM EDT) Only the most recent of3 resultswithin the time period is included. Sodium 139 133 - 145 mmol/L LAB CHEMISTRY METHOD 04/22/2025 2:18 PM [facility] Potassium 4.3 3.5 - 5.5 mmol/L LAB CHEMISTRY METHOD 04/22/2025 2:18 PM [facility] Chloride 99 96 - 110 mmol/L LAB CHEMISTRY METHOD 04/22/2025 2:18 PM [facility] CO2 34(H) 21 - 32 mmol/L LAB CHEMISTRY METHOD 04/22/2025 2:18 PM [facility] Anion Gap 6 3 - 11 LAB CHEMISTRY METHOD 04/22/2025 2:18 PM [facility] Glucose 70 70 - 100 mg/dL LAB CHEMISTRY METHOD 04/22/2025 2:18 PM [facility] BUN 27(H) 5 - 25 mg/dL LAB CHEMISTRY METHOD 04/22/2025 2:18 PM [facility] Creatinine 0.92 0.70 - 1.30 mg/dL LAB CHEMISTRY METHOD 04/22/2025 2:18 PM [facility] eGFR 87 >=60 mL/min/1. 73m2 LAB CHEMISTRY METHOD 04/22/2025 2:18 PM [facility] Comment:Calculation based on the Chronic Kidney Disease Epidemiology Collaboration (CKD-EPI) equation refit without adjustment for race. BUN/Creatinine Ratio 29.3 LAB CHEMISTRY METHOD 04/22/2025 2:18 PM [facility] Calcium 9.4 8.5 - 10.5 mg/dL LAB CHEMISTRY METHOD 04/22/2025 2:18 PM [facility] Blood Venous blood specimen / Unknown 04/22/2025 6:16 AM EDT 04/22/2025 11:43 AM EDT us Lewis GUILLEN LAB BLOOD ORDERABLES Final R esult [facility] [address] [place] [address], [place] [phone] * (ABNORMAL) CBC auto differential (04/11/2025 6:24 AM EDT) Only the most recent of2 resultswithin the time period is included. WBC 7.3 4.8 - 10.8 K/mcL LAB HEMETOLOGY METHOD 04/11/2025 9:44 AM [facility] RBC 4.00(L) 4.50 - 5.50 M/mcL LAB HEMETOLOGY METHOD 04/11/2025 9:44 AM [facility] Hemoglobin 13.0(L) 13.5 - 17.5 g/dL LAB HEMETOLOGY METHOD 04/11/2025 9:44 AM [facility] Hematocrit 41.8(L) 42.0 - 54.0 % LAB HEMETOLOGY METHOD 04/11/2025 9:44 AM [facility] MCV 103.7(H) 79.0 - 98.0 FL LAB HEMETOLOGY METHOD 04/11/2025 9:44 AM EDT [facility] MCH 32.3(H) 27.0 - 32.0 pcg LAB HEMETOLOGY METHOD 04/11/2025 9:44 AM [facility] MCHC 31.1(L) 32.0 - 37.0 g/dL LAB HEMETOLOGY METHOD 04/11/2025 9:44 AM [facility] RDW 12.9 11.0 - 15.0 % LAB HEMETOLOGY METHOD 04/11/2025 9:44 AM EDT [facility] Platelets 184 130 - 400 K/mcL LAB HEMETOLOGY METHOD 04/11/2025 9:44 AM [facility] MPV 10.3 7.0 - 11.0 FL LAB HEMETOLOGY METHOD 04/11/2025 9:44 AM [facility] NRBC 0.0 <1.0 % LAB HEMETOLOGY METHOD 04/11/2025 9:44 AM [facility] NRBC Absolute 0.00 <0.10 K/mcL LAB HEMETOLOGY METHOD 04/11/2025 9:44 AM [facility] Neutrophils Relative 65.0 % LAB HEMETOLOGY METHOD 04/11/2025 9:44 AM [facility] Lymphocytes Relative 16.1 % LAB HEMETOLOGY METHOD 04/11/2025 9:44 AM [facility] Monocytes Relative 15.1 % LAB HEMETOLOGY METHOD 04/11/2025 9:44 AM [facility] Eosinophils Relative 3.0 % LAB HEMETOLOGY METHOD 04/11/2025 9:44 AM [facility] Basophils Relative 0.4 % LAB HEMETOLOGY METHOD 04/11/2025 9:44 AM [facility] Immature Granulocytes Relative 0.4 % LAB HEMETOLOGY METHOD 04/11/2025 9:44 AM [facility] Neutrophils Absolute 4.72 1.50 - 7.00 K/mcL LAB HEMETOLOGY METHOD 04/11/2025 9:44 AM [facility] Lymphocytes Absolute 1.17 1.00 - 5.00 K/mcL LAB HEMETOLOGY METHOD 04/11/2025 9:44 AM [facility] Monocytes Absolute 1.10(H) 0.20 - 1.00 K/mcL LAB HEMETOLOGY METHOD 04/11/2025 9:44 AM [facility] Eosinophils Absolute 0.22 0.00 - 0.50 K/mcL LAB HEMETOLOGY METHOD 04/11/2025 9:44 AM EDT [facility] Basophils Absolute 0.03 0.00 - 0.20 K/[facility] LAB HEMETOLOGY METHOD 04/11/2025 9:44 AM EDT [facility] Immature Granulocytes Absolute 0.03 0.00 - 0.03 K/[facility] LAB HEMETOLOGY METHOD 04/11/2025 9:44 AM EDT [facility] Blood Venous blood specimen / Unknown Venipuncture / Unknown 04/11/2025 6:24 AM EDT 04/11/2025 8:38 AM EDT us Kami Valles MD LAB BLOOD ORDERABLES Final Resu lt Performing Organization Address [facility]/ZIP Co de Phone Number [facility] [address] [place] [address], [place] [phone] * Magnesium (04/11/2025 6:24 AM EDT) Only the most recent of2 resultswithin the time period is included. Magnesium 2.1 1.9 - 2.6 mg/dL LAB CHEMISTRY METHOD 04/11/2025 9:53 AM EDT [facility] Blood Venous blood specimen / Unknown Venipuncture / Unknown 04/11/2025 6:24 AM EDT 04/11/2025 8:38 AM EDT us Kami Valles MD LAB BLOOD ORDERABLES Final Resu lt Performing Organization Address City/[facility]/ZIP Co de Phone Number [facility] [address] [place] [address], [place] [phone] * (ABNORMAL) Comprehensive metabolic panel (04/11/2025 6:24 AM EDT) Only the most recent of2 resultswithin the time period is included. Sodium 141 133 - 145 mmol/L LAB CHEMISTRY METHOD 04/11/2025 10:00 AM [facility] Potassium 4.0 3.5 - 5.5 mmol/L LAB CHEMISTRY METHOD 04/11/2025 10:00 AM [facility] Chloride 99 96 - 110 mmol/L LAB CHEMISTRY METHOD 04/11/2025 10:00 AM [facility] CO2 37(H) 21 - 32 mmol/L LAB CHEMISTRY METHOD 04/11/2025 10:00 AM [facility] Anion Gap 5 3 - 11 LAB CHEMISTRY METHOD 04/11/2025 10:00 AM [facility] Glucose 98 70 - 100 mg/dL LAB CHEMISTRY METHOD 04/11/2025 10:00 AM [facility] BUN 24 5 - 25 mg/dL LAB CHEMISTRY METHOD 04/11/2025 10:00 AM [facility] Creatinine 1.40(H) 0.70 - 1.30 mg/dL LAB CHEMISTRY METHOD 04/11/2025 10:00 AM [facility] eGFR 53(L) >=60 mL/min/1. 73m2 LAB CHEMISTRY METHOD 04/11/2025 10:00 AM [facility] Comment:Calculation based on the Chronic Kidney Disease Epidemiology Collaboration (CKD-EPI) equation refit without adjustment for race. BUN/Creatinine Ratio 17.1 LAB CHEMISTRY METHOD 04/11/2025 10:00 AM [facility] Calcium 8.8 8.5 - 10.5 mg/dL LAB CHEMISTRY METHOD 04/11/2025 10:00 AM [facility] AST (SGOT) 24 10 - 42 unit/L LAB CHEMISTRY METHOD 04/11/2025 10:00 AM [facility] ALT (SGPT) 18 10 - 60 unit/L LAB CHEMISTRY METHOD 04/11/2025 10:00 AM [facility] Alkaline Phosphatase 49 42 - 121 unit/L LAB CHEMISTRY METHOD 04/11/2025 10:00 AM EDT [facility] Total Protein 6.1 6.0 - 8.0 g/dL LAB CHEMISTRY METHOD 04/11/2025 10:00 AM T [facility] Albumin 3.3 3.2 - 5.0 g/dL LAB CHEMISTRY METHOD 04/11/2025 10:00 AM T [facility] Total Bilirubin 0.8 0.0 - 1.4 mg/dL LAB CHEMISTRY METHOD 04/11/2025 10:00 AM [facility] Blood Venous blood specimen / Unknown Venipuncture / Unknown 04/11/2025 6:24 AM EDT 04/11/2025 8:38 AM EDT us Kami Valels MD LAB BLOOD ORDERABLES Final Resu lt [facility] [address] [place] [address], [place] [phone] * (ABNORMAL) Urinalysis with reflex microscopic and culture (04/10/2025 3:35 PM EDT) Specific [place] Urine 1.017 1.003 - 1.030 LAB URINALYSIS - AUTOMATED METHOD 04/11/2025 10:10 AM [facility] pH, Urine 5.5 5.0 - 8.0 pH LAB URINALYSIS - AUTOMATED METHOD 04/11/2025 10:10 AM [facility] Leukocytes, Urine Trace(A) Negative LAB URINALYSIS - AUTOMATED METHOD 04/11/2025 10:10 AM [facility] Nitrite, Urine Negative Negative LAB URINALYSIS - AUTOMATED METHOD 04/11/2025 10:10 AM [facility] Protein, Urine Trace <=Trace mg/dL LAB URINALYSIS - AUTOMATED METHOD 04/11/2025 10:10 AM [facility] Glucose, Urine Negative Negative mg/dL LAB URINALYSIS - AUTOMATED METHOD 04/11/2025 10:10 AM [facility] Ketones, Urine Trace(A) Negative mg/dL LAB URINALYSIS - AUTOMATED METHOD 04/11/2025 10:10 AM [facility] Urobilinogen , Urine 1.0 0.2 - 1.0 mg/dL LAB URINALYSIS - AUTOMATED METHOD 04/11/2025 10:10 AM [facility] Bilirubin, Urine Negative Negative LAB URINALYSIS - AUTOMATED METHOD 04/11/2025 10:10 AM [facility] Blood, Urine Negative Negative LAB URINALYSIS - AUTOMATED METHOD 04/11/2025 10:10 AM [facility] RBC, Urine 0.0 0 - 4 /HPF LAB URINALYSIS - AUTOMATED METHOD 04/11/2025 10:10 AM [facility] WBC, Urine 2.6 0 - 4 /HPF LAB URINALYSIS - AUTOMATED METHOD 04/11/2025 10:10 AM [facility] Squamous Epithelial, Urine 30 0 - 60 /LPF LAB URINALYSIS - AUTOMATED METHOD 04/11/2025 10:10 AM [facility] Crystals, Urine Moderate Calcium Oxalate crystals. /LPF LAB URINALYSIS - AUTOMATED METHOD 04/11/2025 10:10 AM [facility] Bacteria, Urine Negative Negative /HPF LAB URINALYSIS - AUTOMATED METHOD 04/11/2025 10:10 AM [facility] Hyaline Casts, Urine 18.4(H) 0 - 3 /LPF LAB URINALYSIS - AUTOMATED METHOD 04/11/2025 10:10 AM [facility] Other Casts, Urine Rare Fine Granular casts. /LPF LAB URINALYSIS - AUTOMATED METHOD 04/11/2025 10:10 AM EDT [facility] Mucus, Urine Moderate None /HPF LAB URINALYSIS - AUTOMATED METHOD 04/11/2025 10:10 AM EDT [facility] Urine Urine specimen obtained by clean catch procedure / Unknown 04/10/2025 3:35 PM EDT 04/11/2025 9:04 AM EDT us Shelby GUILLEN LAB URINE ORDERABLES Final Re sult Performing Organization Address [facility]/State/ZIP Co de Phone Number [facility] [address] [place] [address], [place] [phone] * Kirkpatrick urine culture tube (04/10/2025 3:35 PM EDT) Extra Tube Hold for add-ons. 04/11/2025 11:01 AM EDT [facility] Comment:Auto resulted. Urine Urine specimen obtained by clean catch procedure / Unknown 04/10/2025 3:35 PM EDT 04/11/2025 9:04 AM EDT us Shelby GUILLEN LAB URINE ORDERABLES Final Re sult Performing Organization Address [facility]/ZIP Co de Phone Number [facility] [address] [place] [address], [place] [phone] * Culture urine (04/10/2025 3:35 PM EDT) Culture, Urine No growth 04/12/2025 10:42 AM EDT [facility] Urine Urine specimen obtained by clean catch procedure / Unknown 04/10/2025 3:35 PM EDT 04/11/2025 10:10 AM EDT us Shelby GUILLEN LAB MICROBIOLOGY - GENERAL OR DERABLES Final Result Performing Organization Address City/[facility]/ZIP Co de Phone Number [facility] [address] [place] [address], [place] [phone] * Culture blood (04/09/2025 11:53 AM EDT) Only the most recent of2 resultswithin the time period is included. Culture, Blood No growth at 5 days 04/14/2025 1:01 PM EDT [facility] Blood 04/09/2025 11:5 3 AM EDT 04/09/2025 12:45 PM EDT Kami Valles MD LAB MICROBIOLOGY - GENERAL DERRICK العراقي Final Result [facility] [address] [place] [address], [place] [phone] * Procalcitonin (04/09/2025 11:46 AM EDT) [facility] Procalcitonin 0.06 <=0.16 ng/mL LAB CHEMISTRY METHOD 04/09/2025 1:32 PM EDT [facility] Blood Venous blood specimen / Unknown Venipuncture / Unknown 04/09/2025 11:46 AM EDT 04/09/2025 12:45 PM EDT Narrative [facility] - 04/09/2025 1:32 PM EDT Procalcitonin [...] ORDERABLES Final Resu lt Performing Organization Address [facility] Co de Phone Number [facility] [address] [place] [address], * Lactate (04/09/2025 11:46 AM EDT) Lactate 0.6 0.4 - 2.0 mmol/L LAB CHEMISTRY METHOD 04/09/2025 1:14 PM EDT [facility] Blood Venous blood specimen / Unknown Venipuncture / Unknown 04/09/2025 11:46 AM EDT 04/09/2025 12:45 PM EDT us Kami Valles MD LAB BLOOD ORDERABLES Final Resu lt Performing Organization Address [facility] de Phone Number [facility] [address] [place] [address], * (ABNORMAL) Creatinine serum (04/07/2025 10:59 AM EDT) Creatinine 0.67(L) 0.70 - 1.30 mg/dL LAB CHEMISTRY METHOD 04/07/2025 11:37 AM EDT [facility] eGFR 98 >=60 mL/min/1. 73m2 LAB CHEMISTRY METHOD 04/07/2025 11:37 AM EDT [facility] Comment:Calculation based on the Chronic Kidney Disease Epidemiology Collaboration (CKD-EPI) equation refit without adjustment for race. Blood Venous blood specimen / Unknown Venipuncture / Unknown 04/07/2025 10:59 AM EDT 04/07/2025 11:08 AM EDT us Lewis Aldridge MD LAB BLOOD ORDERABLES Final Res ult [facility] [address] [place] [address], [place] [phone] * CT Lower Extremity wo Contrast Right (04/06/2025 9:57 PM EDT) Anatomical Region Laterality Modality Lower Extremities Right Computed Tomog clara 04/06/2025 10:2 8 PM EDT Impressions 04/06/2025 10:28 PM EDT 1. No evidence of acute osseous injury. 2. Severe medial and moderate lateral compartment arthrosis. 3. Large joint effusion. Subcutaneous soft tissue edema throughout the knee. This document has been electronically signed by: Randy Maldonado MD on 04/06/2025 22:28:51 Narrative 04/06/2025 10:28 PM EDT INDICATION: c/f occult fracture; unable to bear weight following fall CT right knee without contrast Comparison: None provided Findings: No evidence of acute fracture or subluxation. Severe medial and moderate lateral compartment arthrosis. Large joint effusion. Subcutaneous soft tissue edema throughout the knee. Procedure Note Randy Maldonado - 04/06/2025 INDICATION: c/f occult fracture; unable to bear weight following fall CT right knee without contrast Comparison: None provided Findings: No evidence of acute fracture or subluxation. Severe medial and moderate lateral compartment arthrosis. Large joint effusion. Subcutaneous soft tissue edema throughout the knee. IMPRESSION: 1. No evidence of acute osseous injury. 2. Severe medial and moderate lateral compartment arthrosis. 3. Large joint effusion. Subcutaneous soft tissue edema throughout the knee. This document has been electronically signed by: Randy Maldonado MD on 04/06/2025 22:28:51 Celia Quigley MD IMG CT PROCEDURES Final Result * XR Knee 4+ Views bilat (04/06/2025 5:36 PM EDT) Anatomical Region Laterality Modality Lower Extremities, Knee Bilateral Radiogra phic Imaging 04/07/2025 7:59 AM EDT Impressions 04/07/2025 8:05 AM EDT FINDINGS/IMPRESSION: No acute fracture or dislocation. Severe medial compartment predominant degenerative changes. Degenerative fragmentation around the left patella. Distal left femoral enchondroma. Small suprapatellar joint effusions bilaterally. Arterial calcifications. Soft tissue swelling around the knees. -------- FINAL REPORT -------- Dictated By: STEPHANE CARTAGENA Dictated Date: 04/07/2025 07:59 ET Assigned Physician: STEPHANE CARTAGENA Reviewed and Electronically Signed By: STEPHANE CARTAGENA Signed Date: 04/07/2025 08:05 ET Workstation ID: [id number] Transcribed By: Self Edit Transcribed Date: 04/07/2025 07:59 ET Narrative 04/07/2025 8:05 AM EDT XR KNEE 4+ VIEWS BILAT INDICATION: Fall, pain TECHNIQUE: XR KNEE 4+ VIEWS BILAT COMPARISON: No priors available. Procedure Note Stephane Cartagena MD - 04/07/2025 XR KNEE 4+ VIEWS BILAT INDICATION: Fall, pain TECHNIQUE: XR KNEE 4+ VIEWS BILAT COMPARISON: No priors available. IMPRESSION: FINDINGS/IMPRESSION: No acute fracture or dislocation. Severe medialcompartment predominant degenerative changes. Degenerative fragmentationaround the left patella. Distal left femoral enchondroma. Smallsuprapatellar joint effusions bilaterally. Arterial calcifications. Softtissue swelling around the knees. -------- FINAL REPORT -------- Dictated By: STEPHANE CARTAGENA Dictated Date: 04/07/2025 07:59 ET Assigned Physician: STEPHANE CARTAGENA Reviewed and Electronically Signed By: STEPHANE CARTAGENA Signed Date: 04/07/2025 08:05 ET Workstation ID: [id number] Transcribed By: Self Edit Transcribed Date: 04/07/2025 07:59 ET Meghana GUILLEN IMG XR PROCEDURES Final Result * Lipid panel (05/01/2023) Triglycerides 0 mg/dL Comment:No interpretation, A bstracted Cholesterol 0 mg/dL Comment:No interpretation, A bstracted HDL 0 mg/dL Comment:No interpretation, A bstracted LDL Cholesterol 0 mg/dL Comment:No interpretation, A bstracted Blood Venous blood specimen / Unknown Historical Provider LAB BLOOD ORDERABLES Lesly solorio Result from Last 3 Months or Most Recently Relevant to Health Maintenance Insurance MEDICARE [facility] Advance Directives Documents on File Type Date Recorded Patient Cable Maker Expl anation Health Care Decision (hx) 04/27/2020 HILDA KOEHLER DIRECTIVE Care Teams Tricot Knitter Relationship Specialty Start Date End Date Karrie Mckinney PA [address] [place] [address], [address] [place] [address] PCP - General 12/28/24
[2025-06-28 17:33] LABS: MANUAL DIFF FLAG NO
[2025-06-28 17:46] LABS: Hematocrit 44.8 % (42.0-52.0); Hemoglobin 14.8 g/dl (14.0-18.0); Imm Gran Abs Auto 0.04 X10*3/uL (0.00-0.03); Imm Gran Pct Auto 0.5 % (0.0-0.4); Lymphocytes Absolute Auto 1.4 X10*3/uL (1.2-4.9); Mean Corpuscular HGB Conc 33.0 g/dl (31.0-36.0); Mean Corpuscular Hemoglobin 32.2 pg (27.0-33.0); Mean Corpuscular Volume 97.6 fL (80.0-98.0); NRBC Abs Auto 0.000 X10*3/uL (0.0-0.012); NRBC Pct Auto 0.0 /100WBC (0.0-0.2); Platelet Count 171 X10*3/uL (160-400); Red Blood Count 4.59 X10*6/uL (4.60-5.80); White Blood Count 7.4 X10*3/uL (4.8-10.8)
[2025-06-28 18:16] LABS: Cholesterol 182 mg/dL (<200); HDL Cholesterol 52 mg/dL (>40); Iron 184 mcg/dL (45-160); Percent Iron Saturation 64 % (15-50); Total Iron Binding Capacity 288 mcg/dL (228-428); Triglycerides 123 mg/dL (<150); Unsaturated Iron Binding 104 ug/dL
[2025-06-28 18:23] LABS: Ferritin 92 ng/mL (20-250)
== END 2025-06-28 13:16 | disposition home or self-care (01) ==
LOC: HO.HVNA 13:15
DX: E78.00 Pure hypercholesterolemia, unspecified (principal); Z85.46 Personal history of malignant neoplasm of prostate; D50.9 Iron deficiency anemia, unspecified; Z12.5 Encounter for screening for malignant neoplasm of prostate
CPT/HCPCS: 36415; 80061; 82728; 83540; 84153; 85025